=== PATIENT | male | born 1950 | race Hispanic/Latino ===

== ENCOUNTER 2018-08-25 15:53 | Inpatient (IN) | payer MEDICARE ==
[2018-08-25] MEDS ORDERED: CLEOCIN 300 MG/50 mL 300 MG/50 ML BAG IV ONE (16:28)
--- NOTE | 2018-08-25 16:30 | Emergency Department Report ---
ED General Adult HPI - General Chief complaint: Wound/Laceration Stated complaint: Foot infection Time Seen by Provider: 08/25/18 16:15 Source: patient, EMS (ems notes not available at time of chart dictation), RN notes reviewed Mode of arrival: Stretcher Limitations: Physical Limitation - History of Present Illness Initial comments: Primary care DrLeandro: Aggie Belle Cardiology: Dr LEEROY Shi Nephrology: Dr Dutton Past medical history: Obesity, diabetes, hypertension, atrial fibrillation, reportedly on Coumadin C daily, reportedly stage III This is a pleasant 67-year-old gentleman who is not known to this provider previously. The patient presents to the ER with a complaint of global weakness, recurrent falls, malaise, fatigue. He does not believe that he hit his head. He denies focal extremity weakness or numbness. He reports multiple falls on his lower extremities in the past few days. He reports decreased urination, but no bladder or bowel retention or incontinence. There is no headache, neck pain, chest pain, abdominal pain, back pain. There is no saddle anesthesia. He is not sure if he is having black stools. He has a large open wound on the dorsal aspect of his left foot, present for 2 days. He reports that he is up-to-date with tetanus vaccinations. His symptoms are constant, did not radiate anywhere, and worse with attempted physical exertion, decreased with rest. -: Gradual Location: left, lower extremity Consistency: constant Improves with: none Worsens with: none Associated Symptoms: loss of appetite, malaise, rash, weakness. denies: confusion, chest pain, cough, diaphoresis, fever/chills, headaches, nausea/vomiting, seizure, shortness of breath, syncope - Related Data Home Medications Medication Instructions Recorded Confirmed Last Taken Digoxin [Lanoxin] 0.125 mg PO DAILY 08/25/18 08/25/18 08/25/18 Finasteride [Proscar] 5 mg PO QDAY 08/25/18 08/25/18 08/25/18 Furosemide [Lasix TAB] 40 mg PO BID 08/25/18 08/25/18 08/25/18 Insulin Regular,Human U-500(Nf 90 - 110 units SUB-Q TID 08/25/18 08/25/18 08/25/18 [HumuLIN R] Metoprolol [Lopressor TAB] 75 mg PO BID 08/25/18 08/25/18 08/25/18 Pravastatin [Pravachol] 80 mg PO QHS 08/25/18 08/25/18 08/24/18 Tamsulosin HCl [Flomax] 0.8 mg PO HS 08/25/18 08/25/18 08/24/18 Warfarin [Coumadin] 3.75 mg PO QDAY 08/25/18 08/25/18 08/24/18 cephALEXin [Keflex] 500 mg PO Q12HR 08/25/18 08/25/18 08/25/18 metOLazone [Metolazone] 2.5 mg PO QDAY 08/25/18 08/25/18 08/25/18 Allergies Allergy/AdvReac Type Severity Reaction Status Date / Time No Known Allergies Allergy Unverified 08/25/18 16:05 ED Review of Systems ROS: Stated complaint: Foot infection Other details as noted in HPI Constitutional: malaise, weakness. denies: fever Eyes: denies: eye discharge ENT: denies: epistaxis Respiratory: denies: cough Cardiovascular: edema Gastrointestinal: other (questionable black tarry stool) Genitourinary: other (decreased urinary output) Musculoskeletal: arthralgia, other (skin lesions, rash) Skin: lesions Neurological: weakness Psychiatric: anxiety ED Past Medical Hx - Past Medical History Previous Medical History?: Yes Hx Hypertension: Yes Hx Diabetes: Yes Hx Renal Disease: Yes (ESRD Stage 3) Additional medical history: A-Fib. bilat. wounds on feet - Surgical History Past Surgical History?: Yes Additional Surgical History: nephrectomy secondary to excessive kidney stones - Medications Home Medications: Home Medications Medication Instructions Recorded Confirmed Last Taken Type Digoxin [Lanoxin] 0.125 mg PO DAILY 08/25/18 08/25/18 08/25/18 History Finasteride [Proscar] 5 mg PO QDAY 08/25/18 08/25/18 08/25/18 History Furosemide [Lasix TAB] 40 mg PO BID 08/25/18 08/25/18 08/25/18 History Insulin Regular,Human U-500(Nf 90 - 110 units SUB-Q TID 08/25/18 08/25/18 08/25/18 History [HumuLIN R] Metoprolol [Lopressor TAB] 75 mg PO BID 01/12/0808/25/18 08/25/18 History Pravastatin [Pravachol] 80 mg PO QHS 08/25/18 08/25/18 08/24/18 History Tamsulosin HCl [Flomax] 0.8 mg PO HS 08/25/18 08/25/18 08/24/18 History Warfarin [Coumadin] 3.75 mg PO QDAY 08/25/18 08/25/18 08/24/18 History cephALEXin [Keflex] 500 mg PO Q12HR 08/25/18 08/25/18 08/25/18 History metOLazone [Metolazone] 2.5 mg PO QDAY 08/25/18 08/25/18 08/25/18 History ED Physical Exam - General Limitations: Physical Limitation General appearance: alert, in no apparent distress, obese - Head Head exam: Present: atraumatic, normocephalic - Eye Eye exam: Present: normal appearance, EOMI. Absent: nystagmus - ENT ENT exam: Present: normal exam, normal orophraynx, mucous membranes moist, normal external ear exam - Neck Neck exam: Present: normal inspection, full ROM. Absent: tenderness, meningismus - Respiratory Respiratory exam: Present: decreased breath sounds. Absent: respiratory distress - Cardiovascular Cardiovascular Exam: Present: regular rate, irregular rhythm, normal heart sounds. Absent: bradycardia, tachycardia, systolic murmur, diastolic murmur, rubs, gallop - GI/Abdominal GI/Abdominal exam: Present: soft. Absent: distended, tenderness, guarding, rebound, rigid, pulsatile mass - Rectal Rectal exam: Present: normal inspection, normal rectal tone, heme (-) stool (round stool, trace guaiac positive, good rectal tone), other (chaperoned by nurse Galeas) - Extremities Exam Extremities exam: Present: full ROM, pedal edema (3+ pitting edema in the bilat eral lower extremities), other (2+ pulses noted in the bilateral upper, lower extremities. Compartments soft. No long bony tenderness. The pelvis is stable.). Absent: normal inspection (numerous abrasions and ecchymosis in various stages of healing in the lower extremities. On the dorsal lateral aspect of the left foot, blisters noted, with redness and pus. It is somewhat tender.), calf tenderness - Back Exam Back exam: Present: normal inspection, full ROM. Absent: paraspinal tenderness, vertebral tenderness - Neurological Exam Neurological exam: Present: alert, oriented X3, CN II-XII intact, other (Extraocular movements intact. Tongue midline. No facial droop. Facial sensation intact to light touch in the V1, V2, V3 distribution bilaterally. 5 and 5 strength in 4 extremities.. Sensation is intact to light touch in 4 extremities.). Absent: motor sensory deficit - Psychiatric Psychiatric exam: Present: anxious - Skin Skin exam: Present: warm, dry, intact, normal color. Absent: rash ED Course Vital Signs 08/25/18 08/25/18 08/25/18 15:58 16:00 16:02 Temperature 99.0 F Pulse Rate 88 91 H Respiratory 14 16 Rate Blood Pressure 129/55 O2 Sat by Pulse 90 91 94 Oximetry 08/25/18 08/25/18 08/25/18 16:15 16:30 16:45 Temperature Pulse Rate 83 85 88 Respiratory 24 12 16 Rate Blood Pressure 113/41 131/60 140/74 O2 Sat by Pulse 95 97 96 Oximetry 08/25/18 08/25/18 08/25/18 16:52 17:00 18:02 Temperature Pulse Rate 92 H Respiratory 19 Rate Blood Pressure 121/62 121/62 O2 Sat by Pulse 96 92 92 Oximetry 08/25/18 18:16 Temperature Pulse Rate 92 H Respiratory 16 Rate Blood Pressure 121/62 O2 Sat by Pulse 95 Oximetry - Reevaluation(s) Reevaluation #1: 08/25/18 16:39 Differential diagnosis, including not limited to: Physical deconditioning, worsening renal insufficiency, multiple abrasions, infected wounds, fracture, intracranial lesion/hemorrhage Assessment and plan: 67-year-old gentleman, with no focal motor deficits, moving 4 extremities spontaneously, with good rectal tone, no saddle anesthesia, sensation intact to light touch, with a complaint of multiple falls, global debility, and generalized weakness as well as edema. Suspect physical deconditioning, worsening renal insufficiency, and super infected wound. Clinically sober at this time, GCS of 15, NIH score of 0, no midline back pain or tenderness, therefore doubt epidural hematoma, as well as spinal injury. He reports he is up-to-date with tetanus vaccinations. We will start with clindamycin, obtain plain films of the lower extremities, noncontrast CT scan of the brain, and screening laboratory studies. Once initial data points have res ulted, he will require admission for medical optimization. We will contact necessary consultants as dictated by his initial workup. Reevaluation #2: 08/25/18 18:37 X-ray of the pelvis, bilateral lower extremities demonstrates no obvious fracture or dislocation. Incidental postsurgical findings which appear to be chronic noted in the bilateral proximal femurs, as well as an incidental presumed penile prosthesis. Discussed with the patient's private portfolio lead, Dr. Dutton, who recommended admission for diuresis. We appreciate the patient has a white count of 16 with a left shift as well as a heart rate of 90/greater, but he appears to be fluid overloaded, and therefore it is our combined opinion that the patient will not benefit from a fluid bolus. Nephrology, Dr. Dutton, agrees to follow in consultation. The hospital physician, Dr. Alejandra Guidry, has graciously accepted the patient for deconditioning, fluid overload, and infected wound. ED Medical Decision Making - Lab Data Result diagrams: 08/25/18 16:49 08/25/18 16:49 Vital Signs 08/25/18 08/25/18 08/25/18 15:58 16:00 16:02 Temperature 99.0 F Pulse Rate 88 91 H Respiratory 14 16 Rate Blood Pressure 129/55 O2 Sat by Pulse 90 91 94 Oximetry 08/25/18 08/25/18 16:15 16:30 Temperature Pulse Rate 83 85 Respiratory 24 12 Rate Blood Pressure 113/41 131/60 O2 Sat by Pulse 95 97 Oximetry Labs 08/25/18 08/25/18 16:13 16:20 POC Glucose 86 96 - EKG Data -: EKG Interpreted by Vt - EKG Data When compared to previous EKG there are: previous EKG unavailable 08/25/18 16:41 Atrial fibrillation, normal axis, rate of 84 bpm, low voltage, motion artifact, QTC within normal limits, abnormal EKG no prior for comparison, there is no indication of ST elevation myocardial infarction. - Radiology Data Radiology results: pending, report reviewed, image reviewed Noncontrast CT scan of the brain is negative for acute disease, acute findings. Chronic findings noted. Critical care attestation.: If time is entered above; I have spent that time in minutes in the direct care of this critically ill patient, excluding procedure time. ED Disposition Clinical Impression: Debility, Infected wound, Multiple falls, Fluid overload Disposition: DC-09 OP ADMIT IP TO THIS HOSP Is pt being admited?: Yes Condition: Fair Referrals: IRMA BELLE MD [Primary Care Provider] - 3-5 Days
[2018-08-25] MEDS ORDERED: TYLENOL PO ONE (17:21)
[2018-08-25 17:22] LABS: Basophils # (Auto) 0.1 K/mm3 (0.0-0.1); Basophils % (Auto) 0.8 % (0.0-1.8); Eosinophils # (Auto) 0.2 K/mm3 (0.0-0.4); Eosinophils % (Auto) 1.4 % (0.0-4.3); Hemoglobin 11.2 gm/dl (11.8-15.2); Lymphocytes % (Auto) 6.3 % (13.4-35.0); Mean Corpuscular HGB Conc 31 % (32-34); Mean Corpuscular Volume 82 fl (84-94); Monocytes # (Auto) 1.1 K/mm3 (0.0-0.8); Monocytes % (Auto) 6.5 % (0.0-7.3); Platelet Count 430 K/mm3 (140-440); Red Blood Count 4.39 M/mm3 (3.65-5.03)
[2018-08-25 17:26] LABS: Red Cell Distribution Width 21.4 % (13.2-15.2)
[2018-08-25 17:43] LABS: INR 2.47 (0.87-1.13)
[2018-08-25 17:49] LABS: Partial Thromboplastin Time 43.1 Sec. (24.2-36.6)
[2018-08-25] MEDS ORDERED: LASIX IV ONE (18:16)
[2018-08-25 18:29] LABS: Chol/HDL Ratio 3.38 %
--- NOTE | 2018-08-25 18:37 | Cat Scan Report ---
FINAL REPORT EXAM: CT HEAD/BRAIN WO CON HISTORY: multiple falls, on Coumadin TECHNIQUE: 2.5 millimeter axial images from the skullbase to the vertex. Comparison: None FINDINGS: There is evidence of encephalomalacia in the right frontal lobe white matter and body of the caudate suggestive of chronic infarct. There is no evidence of an acute intracranial process, intracranial hemorrhage or mass effect. Ventricular size is concordant with the degree of atrophy/volume loss. There is atherosclerotic vascular calcification of the internal carotid arteries and left vertebral a rtery at the skullbase. The visualized portions of the orbits, paranasal and mastoid sinuses are unremarkable. The bony structures are unremarkable. IMPRESSION: 1. No evidence of an acute intracranial process, intracranial hemorrhage or mass effect. 2. Encephalomalacia, possible chronic infarct, right caudate and frontal lobe periventricular white m atter.
--- NOTE | 2018-08-25 19:12 | XRay Report ---
FINAL REPORT EXAM: XR FEMUR BILAT 2+V HISTORY: multiple falls, history of leg pain, leg swelling TECHNIQUE: Bilateral femurs 9 views Comparison: Pelvis same day FINDINGS: Patient is unable to assist with positioning. Larger patient body habitus. There are clips in the bilateral groins. No fracture or dislocation of the of either femur. Penile implant. IMPRESSION: Nonstandard positioning performed portably with limited patient assistance. No fracture or dislocation of either femur. No focal bony lesion. Penile implant. Bilateral groin clips. The scrotum appears to be enlarged although it may be due to overlap of soft tissues from the right t high on the left femur lateral projection. Correlate with physical exam.
[2018-08-25] MEDS ORDERED: LOPRESSOR IV ONE ×2 (20:36→20:42)
[2018-08-25] MEDS ORDERED: NACL 0.9% 250ML 250 ML IV ONE (20:37)
--- NOTE | 2018-08-25 21:17 | XRay Report ---
FINAL REPORT EXAM: XR CHEST 1V AP HISTORY: weakness chf TECHNIQUE: Supine frontal chest x-ray Comparison: None FINDINGS: Global cardiomegaly. Coarsening of the bronchovascular interstitium with pulmonary vascular congestion. No definite effusi on. IMPRESSION: Cardiomegaly with pulmonary vascular congestion suggestive of mild congestive failure versus less lik rose infectious interstitial infiltrates. No definite effusion.
--- NOTE | 2018-08-25 21:19 | XRay Report ---
FINAL REPORT EXAM: XR PELVIS 1-2V HISTORY: history of multiple falls, weakness TECHNIQUE: AP pelvis Comparison: None FINDINGS: Limited positioning. Normal bony mineralization. Degenerative arthritis of both hips and the lower lumbar spine. SI joints are. There with scarring of the right ASIS suggestive of DISH. Fecal ball in the rectum. Penile implant. Bilateral groin clips. No disruption of the bony pelvic ring. IMPRESSION: No fracture identified. Degenerative changes only.
--- NOTE | 2018-08-25 21:27 | XRay Report ---
FINAL REPORT EXAM: XR FOOT 2V LT HISTORY: weakness, left foot pain TECHNIQUE: Three nonstandard images of the left foot were performed Comparison: None FINDINGS: There is global osteopenia. Advanced degenerative arthritis of the 1st metatarsal-phalangeal joint. Possible cortical irregularity of the 2nd digit middle phalanx medially. Arterial calcification. Oblique fracture through the great toe tuft extends into the IP joint. This finding is not well seen on the lateral projection. Mature plantar calcaneal spur. Dorsal soft tissue swelling midfoot. IMPRESSION: Nonstandard positioning. There appears to be an oblique fracture through the left great toe tuft extending into the IP joint s pace. Recommend standard nonportable images when able versus cross-sectional imaging. Possible nondisplaced fracture of the left 2nd toe middle phalanx. Globally osteopenic bones in the foot with poor visualization of the tarsals. Dorsal soft tissue swelling over the midfoot.
--- NOTE | 2018-08-25 21:28 | XRay Report ---
FINAL REPORT EXAM: XR TIBIA FIBULA 2V LT HISTORY: history of falls, bilateral lower extremity pain, TECHNIQUE: Four views left tibia and fibula were performed Comparison: None FINDINGS: Normal bony mineralization. No fracture or dislocation. Degenerative arthritis of the ankle joint incompletely assessed. Tibiotalar spurring. Posterior soft tissue calcification and arterial calcification. IMPRESSION: Degenerative arthritis left ankle. No definite fracture or dislocation left tibia or fibula.
[2018-08-26] MEDS ORDERED: VANCOMYCIN PHARMACY TO DOSE IV SCH (02:00)
[2018-08-26] MEDS ORDERED: VANCOMYCIN 2,000 MG in NACL 0.9% 500 ML 500 ML IV ONE (04:00)
[2018-08-26] MEDS: UNASYN/NS 1.5 GM/50 ML 1.5 GM/50 ML BAG IV SCH ×4 (04:00→22:03)
--- NOTE | 2018-08-26 06:21 | Event Note ---
Date: 08/25/18 See dictated H/p in reports Bilateral Cellulitis NATALIA sec to excessive diuretics
--- NOTE | 2018-08-26 07:06 | History and Physical Report ---
CHIEF COMPLAINT: Lower extremity redness and multiple falls. HISTORY OF PRESENT ILLNESS: A 67-year-old male with multiple medical problems including hypertension, CHF, chronic kidney disease and atrial fibrillation, comes in for bilateral wounds on both feet and redness of both feet and frequent falls. Multiple falls in recent days. Also, patient reports decreased urination. No shortness of breath. The patient also has a large open wound on the left foot dorsal aspect for 2 days. No fever or chills. PAST MEDICAL HISTORY: As mentioned, insulin-dependent diabetes, chronic kidney disease, BPH, CHF, atrial fibrillation. CURRENT MEDICATIONS: On chart, which includes Coumadin and Flomax and high dose insulin. Also, finasteride 5 mg once a day. PAST SURGICAL HISTORY: Nephrectomy secondary to excessive kidney stones. FAMILY HISTORY: Hypertension. SOCIAL HISTORY: Does not smoke. No alcohol, no recreational drugs. REVIEW OF SYSTEMS: Significant for bilateral leg wounds and redness and also the left foot ulcer. Frequent falls. Shortness of breath. Obesity. Otherwise, review of systems negative. No chest pain. PHYSICAL EXAMINATION: GENERAL: Elderly male, cooperative during examination. VITAL SIGNS: Temperature is 97.5. Pulse is 100. Blood pressure is 92/34. Respiratory rate is 18. HEENT: Unremarkable. Pupils equal and reactive. NECK: Supple, no lymphadenopathy, no thyromegaly. LUNGS: Clear to auscultation and percussion. Good air entry. CARDIOVASCULAR SYSTEM: S1, S2 heard. No gallop, no murmur, no rub. Apical impulse in left fifth intercostal space in midclavicular line. ABDOMEN: Soft and benign. No hepatosplenomegaly, no guarding, no rigidity. Hernial orifices are normal. CENTRAL NERVOUS SYSTEM: Alert and oriented x 4, nonfocal exam. EXTREMITIES: Both lower extremities are red, erythematous below knees and also there is open wound on the left foot dorsal aspect. Pulses are faintly felt. LABORATORY DATA: Significant for white count of 16,600, H and H is 11.2 and 36, platelet count is 430,000. Sodium is 139. Potassium is 4.0. BUN and creatinine 35 and 2.2. Glucose is ____ 144. A1c is 8.7. Troponin is 0.080. ASSESSMENT AND PLAN: 1. Bilateral lower extremity cellulitis. The patient initiated on Unasyn and vancomycin. Wound care consult requested. 2. Left foot ulcer. Wound care initiated. If necessary, surgical consult. 3. Acute kidney injury. The patient's BUN and creatinine is 35 and 2.2. The patient is on excessive diuretics. He is on Lasix 40 q. 12, which is decreased to 40 once a day. The patient is also on metolazone, which is continued. Will trend BUN and creatinine. Also, nephrology consult requested. He follows with [facility]. 4. Insulin-dependent diabetes. The patient is at very high dose, which was not initiated. The patient initiated on high dose sliding scale protocol. To add is insulin, which is 100 units 3 times a day, to be added after verifying with the patient. 5. Hypertension. Continue metoprolol. 6. Benign prostatic hyperplasia. Continue tamsulosin, and Proscar. 7. Atrial fibrillation. Continue Coumadin. 8. Deep venous thrombosis prophylaxis, the patient is already on Coumadin. Protime is pending. JOB# [id number] DEBORAH/TEENA
[2018-08-26] MEDS: URECHOLINE PO SCH ×2 (09:32→22:07)
[2018-08-26] MEDS: HumaLOG SUB-Q SCH ×3 (09:33→16:36)
[2018-08-26] MEDS: ZAROXOLYN PO SCH (09:33)
[2018-08-26] MEDS: LASIX PO SCH (09:34)
[2018-08-26] MEDS: LANOXIN PO SCH (09:34)
[2018-08-26] MEDS: PROSCAR PO SCH (09:34)
[2018-08-26] MEDS: LOPRESSOR PO SCH (09:35)
[2018-08-26] MEDS ORDERED: URECHOLINE PO SCH (10:00)
[2018-08-26] MEDS ORDERED: COUMADIN PO SCH ×2 (10:00→17:00)
[2018-08-26] MEDS ORDERED: BETHANECHOL 25 MG PO SCH (10:00)
--- NOTE | 2018-08-26 12:06 | Consultation ---
History of Present Illness - Reason for Consult Consult date: 08/26/18 chronic renal failure Requesting physician: JAEL MERCEDES - History of Present Illness This is a pleasant 67-year-old gentleman presented to the emergency room with a complaint of global weakness, recurrent falls, malaise, fatigue. He does not believe that he hit his head. He denies focal extremity weakness or numbness. He reports multiple falls on his lower extremities in the past few days. He reports decreased urination, but no bladder or bowel retention or incontinence. There is no headache, neck pain, chest pain, abdominal pain, back pain. There is no saddle anesthesia. He is not sure if he is having black stools. He has a large open wound on the dorsal aspect of his left foot, present for 2 days. He reports that he is up-to-date with tetanus vaccinations. His symptoms are constant, did not radiate anywhere, and worse with attempted physical exertion, decreased with rest. He is well-known to me from office visits. I saw him in the office earlier this week. He was having increasing leg swelling and also had a sore in his left foot. I doubled his diuretics and also added metolazone. I gave him a prescription for oral Keflex and referred him to wound care. However his condition continued to deteriorate and he was referred to the emergency room for evaluation and admission Past History Past Medical History: diabetes, hypertension, renal failure, other (renal cell cancer) Past Surgical History: Other (history of unilateral nephrectomy) Social history: no significant social history Family history: no significant family history Medications and Allergies Allergies Allergy/AdvReac Type Severity Reaction Status Date / Time No Known Allergies Allergy Unverified 08/25/18 16:05 Home Medications Medication Instructions Recorded Confirmed Last Taken Type Bethanechol 25 PO BID 08/25/18 08/24/18 12:00 History Digoxin [Lanoxin] 0.125 mg PO DAILY 08/25/18 08/25/18 08/25/18 History Finasteride [Proscar] 5 mg PO QDAY 08/25/18 08/25/18 08/25/18 History Furosemide [Lasix TAB] 40 mg PO BID 08/25/18 08/25/18 08/25/18 History Insulin Regular,Human U-500(Nf 90 - 110 units SUB-Q TID 08/25/18 08/25/1819 History [HumuLIN R] Metoprolol [Lopressor TAB] 75 mg PO BID 08/25/18 08/25/18 08/25/18 History Pravastatin [Pravachol] 80 mg PO QHS 08/25/18 08/25/18 08/24/18 History Tamsulosin HCl [Flomax] 0.8 mg PO HS 08/25/18 08/25/18 08/24/18 History Warfarin [Coumadin] 3.75 mg PO QDAY 08/25/18 08/25/18 08/24/18 History cephALEXin [Keflex] 500 mg PO Q12HR 08/25/18 08/25/18 08/25/18 History metOLazone [Metolazone] 2.5 mg PO QDAY 08/25/18 08/25/18 08/25/18 History Active Meds: Active Medications Bethanechol Chloride (Urecholine) 25 mg PO BID [facility] Last Admin: 08/26/18 09:32 Dose: 25 mg Documented by: Digoxin (Lanoxin) 0.125 mg PO DAILY [facility] Last Admin: 08/26/18 09:34 Dose: 0.125 mg Documented by: Finasteride (Proscar) 5 mg PO QDAY [facility] Last Admin: 08/26/18 09:34 Dose: 5 mg Documented by: Furosemide (Lasix) 40 mg PO QDAY [facility] Last Admin: 08/26/18 09:34 Dose: 40 mg Documented by: Ampicillin Sodium/Sulbactam Sodium (Unasyn/Ns 1.5 Gm/50 Ml) 1.5 gm in 50 mls @ 100 mls/hr IV Q6H [facility]; Protocol Last Admin: 08/26/18 09:34 Dose: 100 mls/hr Documented by: Insulin Human Lispro (Humalog) 0 unit SUB-Q ACHS [facility]; Protocol Last Admin: 08/26/18 09:33 Dose: 6 unit Documented by: Metolazone (Zaroxolyn) 2.5 mg PO QDAY [facility] Last Admin: 08/26/18 09:33 Dose: 2.5 mg Documented by: Metoprolol Tartrate (Lopressor) 75 mg PO BID [facility] Last Admin: 08/26/18 09:35 Dose: Not Given Documented by: Pravastatin Sodium (Pravachol) 80 mg PO QHS [facility] Tamsulosin HCl (Flomax) 0.8 mg PO HS [facility] Warfarin Sodium (Coumadin) 3.75 mg PO DAILY@1700 [facility] Review of Systems All systems: negative (negative except as noted above) Exam - Vital Signs Vital signs: Vital Signs Pulse Ox 90 08/25/18 15:58 - General Appearance General appearance: well-developed, well-nourished, appears stated age, obese EENT: PERRL, mucous membranes moist Neck: Present: neck supple, trachea midline. Absent: JVD/HJR, Masses Respiratory: Clear to Ascultation Heart: regular, normal heart rate, S1S2, no murmurs Gastrointestinal: Present: normal, normoactive bowel sounds Integumentary: other (2+ edema. Ulcerated area noted in dorsum of his left foot) Results - Lab Results 08/25/18 16:49 08/25/18 16:49 Most recent lab results Calcium 10.0 mg/dL (8.4-10.2) 08/25/18 16:49 Magnesium 2.00 mg/dL (1.7-2.3) 08/25/18 16:49 Assessment and Plan Impression * Chronic kidney disease * Sepsis * Left foot ulcer * Fluid overload * History of renal cell CA. Status post unilateral nephrectomy * Hypertension * Diabetes Recommendations * Patient renal function appears to be at baseline * Is clinically volume overloaded. Continue loop diuretics * IV antibiotic and culture as per primary team * Avoid nephrotoxins * Monitor fluid status and electrolytes closely * Thank you very much for the consultation. Shall follow along with you
--- NOTE | 2018-08-26 13:13 | Progress Note ---
Assessment and Plan Assessment and plan: Sepsis secondary to cellulitis of the lower extremities - sepsis evidenced with tachycardia and leukocytosis - Patient on IV Unasyn and vancomycin - Wound care consult A. titus - On Coumadin - And metoprolol for rate control History of CVA - Mild residual right-sided weakness - Continue supportive care Congestive heart failure - Chest x-ray showed pulmonary venous congestion - Continue furosemide and metolazone - And is followed by Dr. Shi in the clinic and put a consult for [facility] Acute renal failure - Nephrology is following Disposition - Continue inpatient care History Interval history: Patient was seen and evaluated this morning, discussed with his . patient was sleepy but when awake he is alert and oriented. Hospitalist Physical - Physical exam Narrative exam: Not in cardiopulmonary distress. The patient is obese. Vital signs as documented. Head exam is unremarkable. No scleral icterus . Neck is without jugular venous distension, thyromegaly, or carotid bruits. Lungs are clear to auscultation. Cardiac exam reveals regular rate and Rhythm. Abdominal exam reveals normal bowel sounds. Extremities are nonedematous and both femoral and pedal pulses are normal. 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 Sleepy. - Constitutional Vitals: Temp Pulse Resp BP Pulse Ox 99.1 F 100 H 20 109/50 94 08/26/18 07:53 08/26/18 09:34 08/26/18 07:53 08/26/18 09:35 08/26/18 07:54 Results - Labs CBC & Chem 7: 08/25/18 16:49 08/25/18 16:49 Labs: Laboratory Last Values WBC 16.6 K/mm3 (4.5-11.0) H 08/25/18 16:49 RBC 4.39 M/mm3 (3.65-5.03) 08/25/18 16:49 Hgb 11.2 gm/dl (11.8-15.2) L 08/25/18 16:49 Hct 36.0 % (35.5-45.6) 08/25/18 16:49 MCV 82 fl (84-94) L 08/25/18 16:49 MCH 26 pg (28-32) L 08/25/18 16:49 MCHC 31 % (32-34) L 08/25/18 16:49 RDW 21.4 % (13.2-15.2) H 08/25/18 16:49 Plt Count 430 K/mm3 (140-440) 08/25/18 16:49 Lymph % (Auto) 6.3 % (13.4-35.0) L 08/25/18 16:49 [place] % (Auto) 6.5 % (0.0-7.3) 08/25/18 16:49 Eos % (Auto) 1.4 % (0.0-4.3) 08/25/18 16:49 Baso % (Auto) 0.8 % (0.0-1.8) 08/25/18 16:49 Lymph # 1.0 K/mm3 (1.2-5.4) L 08/25/18 16:49 [place] # 1.1 K/mm3 (0.0-0.8) H 08/25/18 16:49 Eos # 0.2 K/mm3 (0.0-0.4) 08/25/18 16:49 Baso # 0.1 K/mm3 (0.0-0.1) 08/25/18 16:49 Seg Neutrophils % 85.0 % (40.0-70.0) H 08/25/18 16:49 Seg Neutrophils # 14.1 K/mm3 (1.8-7.7) H 08/25/18 16:49 PT 27.1 Sec. (12.2-14.9) H 08/25/18 16:49 INR 2.47 (0.87-1.13) H 08/25/18 16:49 APTT 43.1 Sec. (24.2-36.6) H 08/25/18 16:49 Sodium 139 mmol/L (137-145) 08/25/18 16:49 Potassium 4.0 mmol/L (3.6-5.0) 08/25/18 16:49 Chloride 93.3 mmol/L (98-107) L 08/25/18 16:49 Carbon Dioxide 30 mmol/L (22-30) 08/25/18 16:49 Anion Gap 20 mmol/L 08/25/18 16:49 BUN 35 mg/dL (9-20) H 08/25/18 16:49 Creatinine 2.2 mg/dL (0.8-1.5) H 08/25/18 16:49 Estimated GFR 30 ml/min 08/25/18 16:49 BUN/Creatinine Ratio 16 % 08/25/18 16:49 Glucose 86 mg/dL (75-100) 08/25/18 16:49 POC Glucose 267 (70-105) H 08/26/18 11:42 Hemoglobin A1c 8.7 % (4-6) H 08/26/18 04:58 Calcium 10.0 mg/dL (8.4-10.2) 08/25/18 16:49 Magnesium 2.00 mg/dL (1.7-2.3) 08/25/18 16:49 Total Creatine Kinase 116 units/L (55-170) 08/25/18 16:49 Troponin T 0.080 ng/mL (0.00-0.029) H 08/25/18 16:49 Triglycerides 121 mg/dL (2-149) 08/25/18 16:49 Cholesterol 105 mg/dL (50-199) 08/25/18 16:49 LDL Cholesterol Direct 58 mg/dL (50-130) 08/25/18 16:49 HDL Cholesterol 31 mg/dL (40-59) L 08/25/18 16:49 Cholesterol/HDL Ratio 3.38 % 08/25/18 16:49
[2018-08-26 13:17] LABS: Bilirubin,Urine NEG (Negative); Blood,Urine MOD (Negative); Color,Urine Yellow (Yellow); Mucus,Urine FEW /HPF; Urobilinogen,Urine < 2.0 mg/dL (<2.0)
[2018-08-26] MEDS: PRAVACHOL PO SCH (22:06)
[2018-08-26] MEDS: FLOMAX PO SCH (22:17)
[2018-08-27] MEDS: HumaLOG SUB-Q SCH ×5 (00:08→22:44)
[2018-08-27] MEDS: LOPRESSOR PO SCH ×3 (00:10→21:35)
[2018-08-27] MEDS ORDERED: VANCOMYCIN 1,750 MG in NACL 0.9% 500 ML 500 ML IV SCH (04:00)
[2018-08-27 04:17] LABS: Basophils # (Auto) 0.1 K/mm3 (0.0-0.1); Basophils % (Auto) 0.4 % (0.0-1.8); Eosinophils # (Auto) 0.2 K/mm3 (0.0-0.4); Eosinophils % (Auto) 0.9 % (0.0-4.3); Hematocrit 31.1 % (35.5-45.6); Hemoglobin 9.6 gm/dl (11.8-15.2); Lymphocytes # (Auto) 0.9 K/mm3 (1.2-5.4); Lymphocytes % (Auto) 5.5 % (13.4-35.0); Mean Corpuscular HGB Conc 31 % (32-34); Mean Corpuscular Volume 81 fl (84-94); Monocytes # (Auto) 1.8 K/mm3 (0.0-0.8); Monocytes % (Auto) 11.5 % (0.0-7.3); Platelet Count 368 K/mm3 (140-440); Red Blood Count 3.85 M/mm3 (3.65-5.03)
[2018-08-27 04:24] LABS: Red Cell Distribution Width 21.2 % (13.2-15.2)
[2018-08-27 04:27] LABS: INR 3.59 (0.87-1.13)
[2018-08-27 04:29] LABS: Calcium 8.9 mg/dL (8.4-10.2)
[2018-08-27] MEDS: UNASYN/NS 1.5 GM/50 ML 1.5 GM/50 ML BAG IV SCH ×2 (04:59→11:10)
--- NOTE | 2018-08-27 09:55 | Consultation ---
History of Present Illness - Reason for Consult Consult date: 08/27/18 Sepsis, Cellulitis Requesting physician: NEREIDA SANTIAGO - History of Present Illness This patient is a 67 year old male with a past medical history of obesity, diabetes, hypertension and atrial fibrillation, who presented in the ED on 08/25/18 with complaints of global weakness, recurrent falls, malaise and fatigue. He reports decreased urination, but no bladder or bowel retention or incon tinence. Upon further exam he was found to have a large open wound on the dorasal aspect of his left foot for 2 days. On admission WBC 16.6, Creatinine 2.2, Temperature 97.5, HR 147, BP 121/62, U/A show no evidence of UTI, Chest xray shows mild congestive failure verses less likely infectious interstitial infiltrates. No definite effusion. Foot xray shows possible nondisplaced fracture of the left 2nd toe middle phalanx. Tibia/Fibula xray show degenerative arthritis left ankle. No definite fracture or dislocation left tibia or fibula. Patient asleep , difficult to arouse. at bedside. Stated that patient has had frequent falls since his stoke in 2014. He currently ambulates with a walker. She reports on 08/18/18, his has bilateral swelling in both feet, however his left foot dorsal foot blistered with purulent drainage. His attempted to care for the foot at home. He came to the ER on 08/25/18 for generalized weakness and multiple recurrent falls. Review of Systems: General: no fever,chills, nightsweats, unintentional weight change, or change in appetite, Head: no headaches or injury Eyes: no changes in vision, eye pain, double vision Ears: no ear pain, ear discharge, ringing or hearing loss Nose: no nose bleeding, stuffiness Mouth & throat: no bleeding gums, no horseness, no dental problems, or swollen glands Neck: no pain, node enlargement/lumps, tyroid enlargement or tenderness Respiratory: No cough, sputum, hemoptysis or shortness of breath Cardiovascular: no chest pain, leg edema, cyanosis, REYES, orthopnea Musculoskeletal: decreased joint motion left leg, edematous right foot ,muscles aches bilateral extremities Skin: left dorsal foot wound, warm to touch, third toe superficial wound , left knee sore Gastrointestinal: no nausea, vomiting, hematemesis, diarrhea, +constipation Genitourinary/Reproductive: decreased urination, no dysuria, hematuria, i Neurogical: no seizures, no headaches, + weakness, +diabetic neuropathy Psychiatric: stable mood , no excessive anxiety Past History Past Medical History: diabetes, hypertension, renal failure, other (renal cell cancer) Past Surgical History: Other (history of unilateral nephrectomy) Social history: no significant social history Family history: no significant family history Medications and Allergies Allergies Allergy/AdvReac Type Severity Reaction Status Date / Time No Known Allergies Allergy Unverified 08/25/18 16:05 Home Medications Medication Instructions Recorded Confirmed Last Taken Type Bethanechol 25 mg PO BID 08/25/18 08/26/18 08/24/18 12:00 History Digoxin [Lanoxin] 0.125 mg PO DAILY 08/25/18 08/25/18 08/25/18 History Finasteride [Proscar] 5 mg PO QDAY 08/25/18 08/25/18 08/25/18 History Furosemide [Lasix TAB] 40 mg PO BID 08/25/18 08/25/18 08/25/18 History Insulin Regular,Human U-500(Nf 90 - 110 units SUB-Q TID 08/25/18 08/25/18 08/25/18 History [HumuLIN R] Metoprolol [Lopressor TAB] 75 mg PO BID 08/25/18 08/25/18 08/25/18 History Pravastatin [Pravachol] 80 mg PO QHS 08/25/18 08/25/18 08/24/18 History Tamsulosin HCl [Flomax] 0.8 mg PO HS 08/25/18 08/25/18 08/24/18 History Warfarin [Coumadin] 3.75 mg PO QDAY 08/25/18 08/25/18 08/24/18 History cephALEXin [Keflex] 500 mg PO Q12HR 08/25/18 08/25/18 08/25/18 History metOLazone [Metolazone] 2.5 mg PO QDAY 08/25/18 08/25/18 08/25/18 History Active Meds: Active Medications Bethanechol Chloride (Urecholine) 25 mg PO BID [facility] Last Admin: 08/26/18 22:07 Dose: 25 mg Documented by: Digoxin (Lanoxin) 0.125 mg PO DAILY [facility] Last Admin: 08/26/18 09:34 Dose: 0.125 mg Documented by: Finasteride (Proscar) 5 mg PO QDAY [facility] Last Admin: 08/26/18 09:34 Dose: 5 mg Documented by: Furosemide (Lasix) 40 mg PO QDAY [facility] Last Admin: 08/26/18 09:34 Dose: 40 mg Documented by: Ampicillin Sodium/Sulbactam Sodium (Unasyn/Ns 1.5 Gm/50 Ml) 1.5 gm in 50 mls @ 100 mls/hr IV Q6H [facility]; Protocol Last Admin: 08/27/18 04:59 Dose: 100 mls/hr Documented by: Vancomycin HCl 1,500 mg/ (Sodium Chloride) 530 mls @ 333.333 mls/hr IV ONCE ONE Stop: 08/27/18 19:35 Insulin Human Lispro (Humalog) 0 unit SUB-Q ACHS [facility]; Protocol Last Admin: 08/27/18 00:08 Dose: 6 unit Documented by: Metolazone (Zaroxolyn) 2.5 mg PO QDAY [facility] Last Admin: 08/26/18 09:33 Dose: 2.5 mg Documented by: Metoprolol Tartrate (Lopressor) 75 mg PO BID [facility] Last Admin: 08/27/18 00:10 Dose: Not Given Documented by: Pravastatin Sodium (Pravachol) 80 mg PO QHS [facility] Last Admin: 08/26/18 22:06 Dose: 80 mg Documented by: Tamsulosin HCl (Flomax) 0.8 mg PO HS [facility] Last Admin: 08/26/18 22:17 Dose: 0.8 mg Documented by: Physical Examination - Physical Exam Narrative exam: Constitutional: Asleep, difficult to arouse, mild distress Head, Ears, Nose: Normocephalic, atraumatic. External ears, nose normal Eyes: Conjunctivae/corneas clear. No icterus. No ptosis. Neck: Supple, no meningeal signs Oral: dentition food, no thrush . Cardiovascular: S1, S2 normal. Respiratory: Good air entry, clear to auscultation bilaterally GI: Soft, non-tender; bowel sounds normal. No peritoneal signs Musculoskeletal: Right foot edema, bilateral extremity weakness Skin: left foot wound, with purulent drainage, 3rd toe superficial wound Hem/Lymphatic: No palpable cervical or supraclavicular nodes. No lymphangitis Psych: Mood ok. Affect normal Neurological: Asleep, difficult to arouse - Constitutional Vitals: Vital Signs Temp Pulse Resp BP Pulse Ox 98.4 F 92 H 22 145/51 95 08/27/18 02:00 08/27/18 02:00 08/26/18 19:49 08/27/18 01:55 08/27/18 02:00 Temperature -Last 24 Hours Temperature 98.4 F Temperature 101.1 F Temperature 101.1 F Temperature 99.6 F Results - Labs CBC & Chem 7: 08/27/18 04:03 08/27/18 04:03 Labs: Abnormal lab results 08/26/18 08/26/18 08/26/18 Range/Units 11:42 16:20 23:23 WBC (4.5-11.0) K/mm3 Hgb (11.8-15.2) gm/dl Hct (35.5-45.6) % MCV (84-94) fl MCH (28-32) pg MCHC (32-34) % RDW (13.2-15.2) % Lymph % (Auto) (13.4-35.0) % [place] % (Auto) (0.0-7.3) % Lymph # (1.2-5.4) K/mm3 [place] # (0.0-0.8) K/mm3 Seg Neutrophils % (40.0-70.0) % Seg Neutrophils # (1.8-7.7) K/mm3 PT (12.2-14.9) Sec. INR (0.87-1.13) Sodium (137-145) mmol/L Chloride (98-107) mmol/L BUN (9-20) mg/dL Creatinine (0.8-1.5) mg/dL Glucose (75-100) mg/dL POC Glucose 267 H 316 H 258 H (70-105) 08/27/18 08/27/18 08/27/18 Range/Units 04:03 04:03 04:03 WBC 16.1 H (4.5-11.0) K/mm3 Hgb 9.6 L (11.8-15.2) gm/dl Hct 31.1 L (35.5-45.6) % MCV 81 L (84-94) fl MCH 25 L (28-32) pg MCHC 31 L (32-34) % RDW 21.2 H (13.2-15.2) % Lymph % (Auto) 5.5 L (13.4-35.0) % [place] % (Auto) 11.5 H (0.0-7.3) % Lymph # 0.9 L (1.2-5.4) K/mm3 [place] # 1.8 H (0.0-0.8) K/mm3 Seg Neutrophils % 81.7 H (40.0-70.0) % Seg Neutrophils # 13.1 H (1.8-7.7) K/mm3 PT 36.1 H (12.2-14.9) Sec. INR 3.59 H (0.87-1.13) Sodium 133 L (137-145) mmol/L Chloride 90.1 L (98-107) mmol/L BUN 39 H (9-20) mg/dL Creatinine 2.4 H (0.8-1.5) mg/dL Glucose 283 H (75-100) mg/dL POC Glucose (70-105) 08/27/18 Range/Units 08:20 WBC (4.5-11.0) K/mm3 Hgb (11.8-15.2) gm/dl Hct (35.5-45.6) % MCV (84-94) fl MCH (28-32) pg MCHC (32-34) % RDW (13.2-15.2) % Lymph % (Auto) (13.4-35.0) % [place] % (Auto) (0.0-7.3) % Lymph # (1.2-5.4) K/mm3 [place] # (0.0-0.8) K/mm3 Seg Neutrophils % (40.0-70.0) % Seg Neutrophils # (1.8-7.7) K/mm3 PT (12.2-14.9) Sec. INR (0.87-1.13) Sodium (137-145) mmol/L Chloride (98-107) mmol/L BUN (9-20) mg/dL Creatinine (0.8-1.5) mg/dL Glucose (75-100) mg/dL POC Glucose 319 H (70-105) Assessment and Plan Imagin08/25/2018 Chest: mild congestive failure verses less likely infectious in terstitial infiltrates. No definite effusion 08/25/2018 Foot xray: Possible nondisplaced fracture of the left 2nd toe middle phalanx. Globally osteopenic bones in the foot with poor visualization of the tarsals. 08/25/2018: Tibia/Fibula x-ray: Degenerative arthritis left ankle. No definite fracture or dislocation left tibia or fibula Cultures: 08/27/2018 Left Foot: pending A/P: 66-year-old male with a history of obesity, diabetes, hypertension and atrial fibrillation, admitted with: 1. Sepsis: Present on admission, manifested by leukocytosis and tachycardia. Etiology unclear. large open wound on dorsal aspect of left foot.. +/- diabetic foot ulceration, +/-- cellulitis, Chest xray shows no infiltrates, U/A negative for UTI. New onset fevers. Blood cultures not drawn. Currently being treated with unasyn and vancomycin. 2. Left foot Cellulitis and wound infection : On exam, left foot warm, tender to touch with purulent drainage. + Diabetic neuropathy. Wound cultures sent. +2 bilateral pulses 3. Fevers: related to above 4. Type 2 Diabetes uncontrolled: tight glycemic control 5. NATALIA/CKD - Status post unilateral nephrectomy Plan order blood cultures order CRP, ESR Left Foot wound culture discontinue unasyn and vancomycin Start Cefepime 1 gm q 12 Hours Start Linezolid IV 600 BID d/w Dr. Edis Boyd, BUSINESS DIVISION CHAIR [facility] M: [phone] O:[phone]
--- NOTE | 2018-08-27 11:11 | Progress Note ---
Assessment and Plan Impression * Chronic kidney disease * Sepsis * Left foot ulcer * Fluid overload * History of renal cell CA. Status post unilateral nephrectomy * Hypertension * Diabetes Recommendations * Patient renal function appears to be at baseline * Is clinically volume overloaded. Continue loop diuretics * IV antibiotic and culture as per primary team * Avoid nephrotoxins * Monitor fluid status and electrolytes closely * ID consult appreciated * Check an ultrasound of his kidneys as well as PVR Subjective Date of service: 08/27/18 Interval history: patient is not feeling well. Appetite is poor. Denies any shortness of breath Objective - Vital Signs Vital signs: Vital Signs - 12hr 08/27/18 08/27/18 08/27/18 00:10 01:55 02:00 Temperature 98.4 F Pulse Rate 104 H 92 H Blood Pressure 120/49 145/51 O2 Sat by Pulse 95 95 Oximetry - General Appearance General appearance: well-developed, well-nourished, appears stated age EENT: ATNC Neck: no JVD, no thyromegaly, no carotid bruit, supple Respiratory: Present: Clear to Ascultation Cardiology: regular, normal heart rate Gastrointestinal: normal, normoactive bowel sounds Integumentary: other (1+ edema. Ulceration noted in the dorsum of his left foot) - Lab 08/27/18 04:03 08/27/18 04:03 Most recent lab results Calcium 8.9 mg/dL (8.4-10.2) 08/27/18 04:03 Magnesium 2.00 mg/dL (1.7-2.3) 08/25/18 16:49 Medications & Allergies - Medications Allergies/Adverse Reactions: Allergies No Known Allergies Allergy (Unverified 08/25/18 16:05) Home Medications: Home Medications Medication Instructions Recorded Confirmed Last Taken Type Bethanechol 25 mg PO BID 08/25/18 08/26/18 08/24/18 12:00 History Digoxin [Lanoxin] 0.125 mg PO DAILY 08/25/18 08/25/18 08/25/18 History Finasteride [Proscar] 5 mg PO QDAY 08/25/18 08/25/18 08/25/18 History Furosemide [Lasix TAB] 40 mg PO BID 08/25/18 08/25/18 08/25/18 History Insulin Regular,Human U-500(Nf 90 - 110 units SUB-Q TID 08/25/18 08/25/18 08/25/18 History [HumuLIN R] Metoprolol [Lopressor TAB] 75 mg PO BID 08/25/18 08/25/18 08/25/18 History Pravastatin [Pravachol] 80 mg PO QHS 08/25/18 08/25/18 08/24/18 History Tamsulosin HCl [Flomax] 0.8 mg PO HS 08/25/18 08/25/18 08/24/18 History Warfarin [Coumadin] 3.75 mg PO QDAY 08/25/18 08/25/18 08/24/18 History cephALEXin [Keflex] 500 mg PO Q12HR 08/25/18 08/25/18 08/25/18 History metOLazone [Metolazone] 2.5 mg PO QDAY 08/25/18 08/25/18 08/25/18 History Active Medications: Generic Name Dose Route Start Last Admin Trade Name Freq PRN Reason Stop Dose Admin Bethanechol Chloride 25 mg 08/26/18 10:00 08/26/18 22:07 Urecholine PO 25 mg BID JOAN Administration Digoxin 0.125 mg 08/26/18 10:00 08/26/18 09:34 Lanoxin PO 0.125 mg DAILY JOAN Administration Finasteride 5 mg 08/26/18 10:00 08/26/18 09:34 Proscar PO 5 mg QDAY JOAN Administration Furosemide 40 mg 08/26/18 10:00 08/26/18 09:34 Lasix PO 40 mg QDAY JOAN Administration Ampicillin Sodium/Sulbactam Sodium 1.5 gm in 50 mls @ 100 mls/hr 08/26/18 04:00 08/27/18 11:10 Unasyn/Ns 1.5 Gm/50 Ml IV 100 mls/hr Q6H JOAN Administration Protocol Vancomycin HCl 1,500 mg/ 530 mls @ 333.333 mls/hr 08/27/18 18:00 Sodium Chloride IV 08/27/18 19:35 ONCE ONE Insulin Human Lispro 0 unit 08/26/18 07:30 08/27/18 11:09 Humalog SUB-Q 8 unit ACHS JOAN Administration Protocol Metolazone 2.5 mg 08/26/18 10:00 08/26/18 09:33 Zaroxolyn PO 2.5 mg QDAY JOAN Administration Metoprolol Tartrate 75 mg 08/26/18 10:00 08/27/18 00:10 Lopressor PO Not Given BID OJAN Pravastatin Sodium 80 mg 08/26/18 22:00 08/26/18 22:06 Pravachol PO 80 mg QHS JOAN Administration Tamsulosin HCl 0.8 mg 08/26/18 22:00 08/26/18 22:17 Flomax PO 0.8 mg HS JOAN Administration
[2018-08-27] MEDS: LASIX PO SCH (11:12)
[2018-08-27] MEDS: URECHOLINE PO SCH ×2 (11:13→21:35)
[2018-08-27] MEDS: ZAROXOLYN PO SCH (11:13)
[2018-08-27] MEDS: PROSCAR PO SCH (11:13)
[2018-08-27] MEDS: LANOXIN PO SCH (11:23)
--- NOTE | 2018-08-27 14:24 | XRay Report ---
FINAL REPORT EXAM: XR ELBOW 2V RT HISTORY: ritght elbow pain COMPARISON: None. TECHNIQUE: Two views of the right elbow FINDINGS: There are compression plates with screws in the distal humerus. Medial compression plate is fractured with mild medial angulation. There is no acute bony fracture or dislocation. There is posterior angu lation of the distal humerus. There is a joint effusion with peripheral calcifications. The overlying soft tissues are intact. IMPRESSION: Fracturing of medial compression plate. No acute bony fracture or dislocation. There is mild posterio r angulation of the distal humerus. There is a small joint effusion.
--- NOTE | 2018-08-27 15:06 | Progress Note ---
Assessment and Plan Assessment and plan: Sepsis secondary to cellulitis of the lower extremities - sepsis evidenced with tachycardia and leukocytosis - Patient on IV Unasyn and vancomycin - ID consult appreciated - Wound care consult A. fib - On Coumadin, INR is high, will held - And metoprolol for rate control History of CVA - Mild residual right-sided weakness - Continue supportive care Congestive heart failure - Chest x-ray showed pulmonary venous congestion - Continue furosemide and metolazone - And is followed by Dr. Shi in the clinic and put a consult for [facility] CKD - Nephrology is following Disposition - Continue inpatient care History Interval history: Patient was seen and evaluated this morning, discussed with his . patient was sleepy but when awake he is alert and oriented. Was not eating. Had fever episode. Hospitalist Physical - Physical exam Narrative exam: Not in cardiopulmonary distress. The patient is obese. Vital signs as documented. Head exam is unremarkable. No scleral icterus . Neck is without jugular venous distension, thyromegaly, or carotid bruits. Lungs are clear to auscultation. Cardiac exam reveals regular rate and Rhythm. Abdominal exam reveals normal bowel sounds. Extremities are nonedematous and both femoral and pedal pulses are normal. 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 Sleepy. - Constitutional Vitals: Temp Pulse Resp BP Pulse Ox 98.4 F 109 H 22 129/64 95 08/27/18 02:00 08/27/18 11:23 08/26/18 19:49 08/27/18 11:23 08/27/18 02:00 Results - Labs CBC & Chem 7: 08/27/18 04:03 08/27/18 04:03 Labs: Laboratory Last Values WBC 16.1 K/mm3 (4.5-11.0) H 08/27/18 04:03 RBC 3.85 M/mm3 (3.65-5.03) 08/27/18 04:03 Hgb 9.6 gm/dl (11.8-15.2) L 08/27/18 04:03 Hct 31.1 % (35.5-45.6) L 08/27/18 04:03 MCV 81 fl (84-94) L 08/27/18 04:03 MCH 25 pg (28-32) L 08/27/18 04:03 MCHC 31 % (32-34) L 08/27/18 04:03 RDW 21.2 % (13.2-15.2) H 08/27/18 04:03 Plt Count 368 K/mm3 (140-440) 08/27/18 04:03 Lymph % (Auto) 5.5 % (13.4-35.0) L 08/27/18 04:03 [place] % (Auto) 11.5 % (0.0-7.3) H 08/27/18 04:03 Eos % (Auto) 0.9 % (0.0-4.3) 08/27/18 04:03 Baso % (Auto) 0.4 % (0.0-1.8) 08/27/18 04:03 Lymph # 0.9 K/mm3 (1.2-5.4) L 08/27/18 04:03 [place] # 1.8 K/mm3 (0.0-0.8) H 08/27/18 04:03 Eos # 0.2 K/mm3 (0.0-0.4) 08/27/18 04:03 Baso # 0.1 K/mm3 (0.0-0.1) 08/27/18 04:03 Seg Neutrophils % 81.7 % (40.0-70.0) H 08/27/18 04:03 Seg Neutrophils # 13.1 K/mm3 (1.8-7.7) H 08/27/18 04:03 ESR 111 mm/Hr (0-20) 08/27/18 11:11 PT 36.1 Sec. (12.2-14.9) H 08/27/18 04:03 INR 3.59 (0.87-1.13) H 08/27/18 04:03 APTT 43.1 Sec. (24.2-36.6) H 08/25/18 16:49 Sodium 133 mmol/L (137-145) L 08/27/18 04:03 Potassium 3.9 mmol/L (3.6-5.0) 08/27/18 04:03 Chloride 90.1 mmol/L (98-107) L 08/27/18 04:03 Carbon Dioxide 30 mmol/L (22-30) 08/27/18 04:03 Anion Gap 17 mmol/L 08/27/18 04:03 BUN 39 mg/dL (9-20) H 08/27/18 04:03 Creatinine 2.4 mg/dL (0.8-1.5) H 08/27/18 04:03 Estimated GFR 27 ml/min 08/27/18 04:03 BUN/Creatinine Ratio 16 % 08/27/18 04:03 Glucose 283 mg/dL (75-100) H 08/27/18 04:03 POC Glucose 324 (70-105) H 08/27/18 11:36 Hemoglobin A1c 8.7 % (4-6) H 08/26/18 04:58 Calcium 8.9 mg/dL (8.4-10.2) 08/27/18 04:03 Magnesium 2.00 mg/dL (1.7-2.3) 08/25/18 16:49 Total Creatine Kinase 116 units/L (55-170) 08/25/18 16:49 Troponin T 0.080 ng/mL (0.00-0.029) H 08/25/18 16:49 C-Reactive Protein 17.50 mg/dL (0.00-1.30) H 08/27/18 11:11 Triglycerides 121 mg/dL (2-149) 08/25/18 16:49 Cholesterol 105 mg/dL (50-199) 08/25/18 16:49 LDL Cholesterol Direct 58 mg/dL (50-130) 08/25/18 16:49 HDL Cholesterol 31 mg/dL (40-59) L 08/25/18 16:49 Cholesterol/HDL Ratio 3.38 % 08/25/18 16:49 Urine Color Yellow (Yellow) 08/26/18 12:55 Urine Turbidity Clear (Clear) 08/26/18 12:55 Urine pH 5.0 (5.0-7.0) 08/26/18 12:55 Ur Specific [place] 1.009 (1.003-1.030) 08/26/18 12:55 Urine Protein 30 mg/dl mg/dL (Negative) 08/26/18 12:55 Urine Glucose (UA) 50 mg/dL (Negative) 08/26/18 12:55 Urine Ketones Tr mg/dL (Negative) 08/26/18 12:55 Urine Blood Mod (Negative) 08/26/18 12:55 Urine Nitrite Neg (Negative) 08/26/18 12:55 Urine Bilirubin Neg (Negative) 08/26/18 12:55 Urine Urobilinogen < 2.0 mg/dL (<2.0) 08/26/18 12:55 Ur Leukocyte Esterase Neg (Negative) 08/26/18 12:55 Urine WBC (Auto) 4.0 /HPF (0.0-6.0) 08/26/18 12:55 Urine RBC (Auto) 7.0 /HPF (0.0-6.0) 08/26/18 12:55 U Epithel Cells (Auto) 1.0 /HPF (0-13.0) 08/26/18 12:55 Urine Mucus Few /HPF 08/26/18 12:55 Random Vancomycin 15.5 ug/mL (0-40.0) 08/27/18 04:03 Nutrition/Malnutrition Assess - Dietary Evaluation Nutrition/Malnutrition Findings: Nutrition Notes Start: 08/26/18 13:18 Freq: Status: Active Protocol: Document 08/26/18 13:19 LP (Rec: 08/26/18 13:25 LP [id number]) Nutrition Notes 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 Pt sleeping at time of visit. 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 Pt blood sugars at home fluctuate. Pt would not like a supplement. Food preferences noted. Burn Absent Trauma Absent #1 Nutrition Diagnoses Inadequate oral intake Etiology decreased appetite As Evidenced by Signs and Symptoms Pt not eating well [employer] and currently NPO Is patient on ventilator? No Is Patient Ambulatory and/or Out of Bed No REE-([facility]-confined to bed) 2218.116 Kcal/Kg value to use for calculation 16 Approximate Energy Requirements Using 1742 kcal/Kg Calculation Used for Recommendations Kcal/kg Additional Notes Protein needs are 86g (0.8g/kg ) Fluid needs are 1ml/kcal Nutrition Intervention Change Diet Order: Advannce diet to cardiac/ consistent CHO Goal #1 Advance diet Anticipated Discharge Needs: Cardiac consistent CHO Follow-Up By: 08/29/18 Additional Comments Follow for intakes
[2018-08-27] MEDS: MEGACE PO SCH (16:32)
[2018-08-27] MEDS: MAXIPIME/NS 1 GM/100 ML 1 GM/100 ML BAG IV SCH ×2 (16:37→21:33)
[2018-08-27] MEDS: ZYVOX 600MG/300ML 600 MG/300 ML BAG IV SCH ×2 (16:38→21:33)
[2018-08-27] MEDS ORDERED: COUMADIN NO DOSE TODAY PO ONE (17:00)
[2018-08-27] MEDS ORDERED: VANCOMYCIN 1,500 MG in NACL 0.9% 500 ML 500 ML IV ONE (18:00)
--- NOTE | 2018-08-27 18:51 | Consultation ---
History of Present Illness Consult date: 08/27/18 Requesting physician: NEREIDA SANTIAGO Consult reason: atrial fibrillation, other (cellulitis) History of present illness: 67-year-old gentleman with a past medical history of atrial fibrillation, heart failure with preserved ejection fraction 52% diabetes, hyperlipidemia, hypertension, single kidney with chronic kidney disease followed by Dr. Griffiths, history of penile cancer in 2011, cerebral palsy, stroke with residual right- sided weakness in 2014 processes of the [facility] emergency department complaining of fatigue malaise and increasing weakness. The patient has a history of recurrent falls and in the emergency department he was noted to have an open wound to his left foot. Past History Past Medical History: diabetes, hypertension, renal failure, other (renal cell cancer) Past Surgical History: Other (history of unilateral nephrectomy) Social history: no significant social history Family history: no significant family history Medications and Allergies Allergies Allergy/AdvReac Type Severity Reaction Status Date / Time No Known Allergies Allergy Unverified 08/25/18 16:05 Home Medications Medication Instructions Recorded Confirmed Last Taken Type Bethanechol 25 mg PO BID 08/25/18 08/26/18 08/24/18 12:00 History Digoxin [Lanoxin] 0.125 mg PO DAILY 08/25/18 08/25/18 08/25/18 History Finasteride [Proscar] 5 mg PO QDAY 08/25/18 08/25/18 08/25/18 History Furosemide [Lasix TAB] 40 mg PO BID 08/25/18 08/25/18 08/25/18 History Insulin Regular,Human U-500(Nf 90 - 110 units SUB-Q TID 08/25/18 08/25/18 08/25/18 History [HumuLIN R] Metoprolol [Lopressor TAB] 75 mg PO BID 08/25/18 08/25/18 08/25/18 History Pravastatin [Pravachol] 80 mg PO QHS 08/25/18 08/25/18 08/24/18 History Tamsulosin HCl [Flomax] 0.8 mg PO HS 08/25/18 08/25/18 08/24/18 History Warfarin [Coumadin] 3.75 mg PO QDAY 08/25/18 08/25/18 08/24/18 History cephALEXin [Keflex] 500 mg PO Q12HR 08/25/18 08/25/18 08/25/18 History metOLazone [Metolazone] 2.5 mg PO QDAY 08/25/18 08/25/18 08/25/18 History Active Meds: Active Medications Bethanechol Chloride (Urecholine) 25 mg PO BID [facility] Last Admin: 08/27/18 11:13 Dose: 25 mg Documented by: Digoxin (Lanoxin) 0.125 mg PO DAILY [facility] Last Admin: 08/27/18 11:23 Dose: 0.125 mg Documented by: Finasteride (Proscar) 5 mg PO QDAY [facility] Last Admin: 08/27/18 11:13 Dose: 5 mg Documented by: Furosemide (Lasix) 40 mg PO QDAY [facility] Last Admin: 08/27/18 11:12 Dose: 40 mg Documented by: Cefepime HCl (Maxipime/Ns 1 Gm/100 Ml) 1 gm in 100 mls @ 200 mls/hr IV Q12HR [facility]; Protocol Last Admin: 08/27/18 16:37 Dose: 200 mls/hr Documented by: Linezolid (Zyvox 600mg/300ml) 600 mg in 300 mls @ 300 mls/hr IV Q12HR [facility]; Protocol Last Admin: 08/27/18 16:38 Dose: 300 mls/hr Documented by: Insulin Human Lispro (Humalog) 0 unit SUB-Q ACHS [facility]; Protocol Last Admin: 08/27/18 16:31 Dose: 10 unit Documented by: Megestrol Acetate (Megace) 400 mg PO QDAY [facility] Last Admin: 08/27/18 16:32 Dose: 400 mg Documented by: Metolazone (Zaroxolyn) 2.5 mg PO QDAY [facility] Last Admin: 08/27/18 11:13 Dose: 2.5 mg Documented by: Metoprolol Tartrate (Lopressor) 75 mg PO BID [facility] Last Admin: 08/27/18 11:16 Dose: 75 mg Documented by: Pravastatin Sodium (Pravachol) 80 mg PO QHS [facility] Last Admin: 08/26/18 22:06 Dose: 80 mg Documented by: Tamsulosin HCl (Flomax) 0.8 mg PO [facility] Last Admin: 08/26/18 22:17 Dose: 0.8 mg Documented by: Review of Systems Constitutional: weight loss, fever, chills Ears, nose, mouth and throat: no ear discharge, no tinnitis Cardiovascular: edema, no chest pain, no orthopnea, no palpitations, no syncope Respiratory: no cough, no hemoptysis, no dyspnea on exertion Gastrointestinal: no abdominal pain, no nausea, no vomiting Musculoskeletal: no neck pain, no shooting arm pain Integumentary: rash Psychiatric: insomnia, change in appetite Endocrine: no polydipsia, no polyuria Physical Examination Vital Signs Pulse Ox 90 08/25/18 15:58 General appearance: no acute distress HEENT: Positive: PERRL Neck: Positive: neck supple, trachea midline Cardiac: Positive: Irregularly Regular, Tachycardia Lungs: Positive: clear to auscultation, Decreased Breath Sounds Abdomen: Positive: Soft, Active Bowel Sounds Male genitourinary: Positive: deferred Skin: Positive: Rash Extremities: Present: edema, warm Results 08/27/18 04:03 08/27/18 04:03 Coagulation 08/27/18 Range/Units 04:03 PT 36.1 H (12.2-14.9) Sec. INR 3.59 H (0.87-1.13) CBC 08/27/18 Range/Units 04:03 WBC 16.1 H (4.5-11.0) K/mm3 RBC 3.85 (3.65-5.03) M/mm3 Hgb 9.6 L (11.8-15.2) gm/dl Hct 31.1 L (35.5-45.6) % Plt Count 368 (140-440) K/mm3 Lymph # 0.9 L (1.2-5.4) K/mm3 [place] # 1.8 H (0.0-0.8) K/mm3 Eos # 0.2 (0.0-0.4) K/mm3 Baso # 0.1 (0.0-0.1) K/mm3 Comprehensive Metabolic Panel 08/27/18 Range/Units 04:03 Sodium 133 L (137-145) mmol/L Potassium 3.9 (3.6-5.0) mmol/L Chloride 90.1 L (98-107) mmol/L Carbon Dioxide 30 (22-30) mmol/L BUN 39 H (9-20) mg/dL Creatinine 2.4 H (0.8-1.5) mg/dL Glucose 283 H (75-100) mg/dL Calcium 8.9 (8.4-10.2) mg/dL Assessment and Plan Sepsis/cellulitis of the lower extremities ID consult appreciated Wound care consult Daryn fib Supratherapeutic INR Continue metoprolol 75 BID Echocardiogram 04/05/2018: Ejection fraction 52%, no significant valvular abnormalities noted Myocardial perfusion scan 08/04/2017: This is an abnormal myocardial perfusion imaging study demonstrated a mixture scar plus ischemia in the basal inferior, mid inferior and lateral myocardial sharma. Patient appears to have sd- infarction ischemia. Previous study also showed inferior mostly fixed defect. Ejection fraction 69%
[2018-08-27] MEDS: FLOMAX PO SCH (21:34)
[2018-08-27] MEDS: PRAVACHOL PO SCH (21:34)
[2018-08-28 03:24] LABS: Basophils # (Auto) 0.1 K/mm3 (0.0-0.1); Basophils % (Auto) 0.4 % (0.0-1.8); Eosinophils # (Auto) 0.4 K/mm3 (0.0-0.4); Eosinophils % (Auto) 2.5 % (0.0-4.3); Hematocrit 28.2 % (35.5-45.6); Hemoglobin 8.7 gm/dl (11.8-15.2); Lymphocytes # (Auto) 1.1 K/mm3 (1.2-5.4); Lymphocytes % (Auto) 7.8 % (13.4-35.0); Mean Corpuscular HGB Conc 31 % (32-34); Mean Corpuscular Volume 81 fl (84-94); Monocytes # (Auto) 1.5 K/mm3 (0.0-0.8); Monocytes % (Auto) 10.6 % (0.0-7.3); Platelet Count 333 K/mm3 (140-440); Red Blood Count 3.48 M/mm3 (3.65-5.03)
[2018-08-28 03:28] LABS: Red Cell Distribution Width 20.6 % (13.2-15.2)
[2018-08-28 03:40] LABS: INR 4.06 (0.87-1.13)
[2018-08-28 03:44] LABS: Calcium 8.3 mg/dL (8.4-10.2)
[2018-08-28] MEDS: HumaLOG SUB-Q SCH ×4 (07:13→22:18)
--- NOTE | 2018-08-28 08:04 | Progress Note ---
Assessment and Plan Impression * Chronic kidney disease * Sepsis * Left foot ulcer * Fluid overload * History of renal cell CA. Status post unilateral nephrectomy * Hypertension * Diabetes Recommendations * Serum creatinine slowly rising. * Volume overload seems to have resolved. Reduce loop diuretics * IV antibiotic and culture as per primary team * Avoid nephrotoxins * Monitor fluid status and electrolytes closely * ID consult appreciated * Check an ultrasound of his kidneys as well as PVR Subjective Date of service: 08/28/18 Interval history: Patient feels somewhat better today. His appetite is still poor. No nausea or vomiting. Objective - Vital Signs Vital signs: Vital Signs - 12hr 08/28/18 08/28/18 08/28/18 02:00 02:25 07:10 Temperature 98.0 F 98.0 F Pulse Rate 75 78 Respiratory 20 18 Rate Blood Pressure 114/49 122/49 O2 Sat by Pulse 95 96 Oximetry - General Appearance General appearance: well-developed, well-nourished, appears stated age EENT: PERRL, mucous membranes moist Neck: no JVD, no thyromegaly, no carotid bruit, supple Respiratory: Present: Clear to Ascultation Cardiology: regular, normal heart rate Gastrointestinal: normal, normoactive bowel sounds Integumentary: other (no edema. Wrinkling of skin noted. Ulceration noted in the dorsum of his left foot) - Lab 08/28/18 02:37 08/28/18 02:37 Most recent lab results Calcium 8.3 mg/dL (8.4-10.2) L 08/28/18 02:37 Magnesium 2.00 mg/dL (1.7-2.3) 08/25/18 16:49 Medications & Allergies - Medications Allergies/Adverse Reactions: Allergies No Known Allergies Allergy (Unverified 08/25/18 16:05) Home Medications: Home Medications Medication Instructions Recorded Confirmed Last Taken Type Bethanechol 25 mg PO BID 08/25/18 08/26/18 08/24/18 12:00 History Digoxin [Lanoxin] 0.125 mg PO DAILY 08/25/18 08/25/18 08/25/18 History Finasteride [Proscar] 5 mg PO QDAY 08/25/18 08/25/18 08/25/18 History Furosemide [Lasix TAB] 40 mg PO BID 08/25/18 08/25/18 08/25/18 History Insulin Regular,Human U-500(Nf 90 - 110 units SUB-Q TID 08/25/18 08/25/18 08/25/18 History [HumuLIN R] Metoprolol [Lopressor TAB] 75 mg PO BID 08/25/18 08/25/18 08/25/18 History Pravastatin [Pravachol] 80 mg PO QHS 08/25/18 08/25/18 08/24/18 History Tamsulosin HCl [Flomax] 0.8 mg PO HS 08/25/18 08/25/18 08/24/18 History Warfarin [Coumadin] 3.75 mg PO QDAY 08/25/18 08/25/18 08/24/18 History cephALEXin [Keflex] 500 mg PO Q12HR 08/25/18 08/25/18 08/25/18 History metOLazone [Metolazone] 2.5 mg PO QDAY 08/25/18 08/25/18 08/25/18 History Active Medications: Generic Name Dose Route Start Last Admin Trade Name Jose Angelq PRN Reason Stop Dose Admin Bethanechol Chloride 25 mg 08/26/18 10:00 08/27/18 21:35 Urecholine PO 25 mg BID JOAN Administration Digoxin 0.125 mg 08/26/18 10:00 08/27/18 11:23 Lanoxin PO 0.125 mg DAILY JOAN Administration Finasteride 5 mg 08/26/18 10:00 08/27/18 11:13 Proscar PO 5 mg QDAY JOAN Administration Furosemide 40 mg 08/26/18 10:00 08/27/18 11:12 Lasix PO 40 mg QDAY JOAN Administration Cefepime HCl 1 gm in 100 mls @ 200 mls/hr 08/27/18 15:00 08/27/18 22:03 Maxipime/Ns 1 Gm/100 Ml IV Infused Q12HR JOAN Infusion Protocol Linezolid 600 mg in 300 mls @ 300 mls/hr 08/27/18 15:00 08/27/18 22:32 Zyvox 600mg/300ml IV Infused Q12HR JOAN Infusion Protocol Insulin Human Lispro 0 unit 08/26/18 07:30 08/28/18 07:13 Humalog SUB-Q 8 unit ACHS JOAN Administration Protocol Megestrol Acetate 400 mg 08/27/18 14:00 08/27/18 16:32 Megace PO 400 mg QDAY JOAN Administration Metolazone 2.5 mg 08/26/18 10:00 08/27/18 11:13 Zaroxolyn PO 2.5 mg QDAY JOAN Administration Metoprolol Tartrate 75 mg 08/26/18 10:00 08/27/18 21:35 Lopressor PO 75 mg BID JOAN Administration Pravastatin Sodium 80 mg 08/26/18 22:00 08/27/18 21:34 Pravachol PO 80 mg QHS JOAN Administration Tamsulosin HCl 0.8 mg 08/26/18 22:00 08/27/18 21:34 Flomax PO 0.8 mg HS JOAN Administration
--- NOTE | 2018-08-28 08:43 | Progress Note ---
Assessment and Plan Imagin08/25/2018 Chest: mild congestive failure verses less likely infectious interstitial infiltrates. No definite effusion 08/25/2018 Foot xray: Possible nondisplaced fracture of the left 2nd toe middle phalanx. Globally osteopenic bones in the foot with poor visualization of the tarsals. 08/25/2018: Tibia/Fibula x-ray: Degenerative arthritis left ankle. No definite fracture or dislocation left tibia or fibula Cultures: 08/27/2018 Left Foot: Staph Aureus 08/28/2018 Blood: in progress A/P: 66-year-old male with a history of obesity, diabetes, hypertension and atrial fibrillation, admitted with: 1. Sepsis: Improved, leukocytosis continuing. Etiology unclear. large open wound on dorsal aspect of left foot.. +/- diabetic foot ulceration, +/-- cellulitis, Chest xray shows no infiltrates, U/A negative for UTI. New onset fevers. Blood cultures not drawn. Currently being treated with unasyn and vancomycin. -ESR- 111 -CRP 17.5 2. Left foot Cellulitis and wound infection : On exam, left foot warm, tender to touch with purulent drainage. + Diabetic neuropathy. Wound cultures sent. +2 bilateral pulses 3. Fevers: Resolved 4. Type 2 Diabetes uncontrolled: tight glycemic control 5. NATALIA/CKD - Status post unilateral nephrectomy. He has a single kidney and has CKD, discontinue vancomyin, start linezolid. Plan f/u blood cultures f/u Left Foot wound culture Continue Cefepime 1 gm q 12 Hours Continue Linezolid IV 600 BID If clinically stable will switch to PO Linezolid tomorrow [facility] M: [phone] O:[phone] Subjective Date of service: 08/28/18 Interval history: Patient seen and examined. at bedside. Denies fevers, rashes or SOB. Stated that he was able to sleep better last night. Nurses notes, labs and reports reviewed, Discussed with patient and . Objective - Exam Narrative Exam: Constitutional: Awake, alert, conversant Head, Ears, Nose: Normocephalic, atraumatic. External ears, nose normal Eyes: Conjunctivae/corneas clear. No icterus. No ptosis. Neck: Supple, no meningeal signs Oral: dentition food, no thrush . Cardiovascular: S1, S2 normal. Respiratory: Good air entry, clear to auscultation bilaterally GI: Soft, non-tender; bowel sounds normal. No peritoneal signs Musculoskeletal: Right foot edema, bilateral extremity weakness Skin: left foot wound, with purulent drainage, 3rd toe superficial wound Hem/Lymphatic: No palpable cervical or supraclavicular nodes. No lymphangitis Psych: Mood ok. Affect normal Neurological: Awake, oriented to place, self and time - Constitutional Vitals: Vital Signs Temp Pulse Resp BP Pulse Ox 98.0 F 78 18 122/49 96 08/28/18 07:10 08/28/18 07:10 08/28/18 07:10 08/28/18 07:10 08/28/18 07:10 Temperature -Last 24 Hours Temperature 98.0 F Temperature 98.0 F Temperature 98.6 F Temperature 98.2 F Temperature 99.1 F - Labs CBC & Chem 7: 08/28/18 02:37 08/28/18 02:37 Labs: Abnormal lab results 08/27/18 08/27/18 08/27/18 Range/Units 08:20 11:11 11:36 WBC (4.5-11.0) K/mm3 RBC (3.65-5.03) M/mm3 Hgb (11.8-15.2) gm/dl Hct (35.5-45.6) % MCV (84-94) fl MCH (28-32) pg MCHC (32-34) % RDW (13.2-15.2) % Lymph % (Auto) (13.4-35.0) % [place] % (Auto) (0.0-7.3) % Lymph # (1.2-5.4) K/mm3 [place] # (0.0-0.8) K/mm3 Seg Neutrophils % (40.0-70.0) % Seg Neutrophils # (1.8-7.7) K/mm3 PT (12.2-14.9) Sec. INR (0.87-1.13) Sodium (137-145) mmol/L Potassium (3.6-5.0) mmol/L Chloride (98-107) mmol/L BUN (9-20) mg/dL Creatinine (0.8-1.5) mg/dL Glucose (75-100) mg/dL POC Glucose 319 H 324 H (70-105) Calcium (8.4-10.2) mg/dL C-Reactive Protein 17.50 H (0.00-1.30) mg/dL 08/27/18 08/27/18 08/28/18 Range/Units 16:31 21:58 02:37 WBC (4.5-11.0) K/mm3 RBC (3.65-5.03) M/mm3 Hgb (11.8-15.2) gm/dl Hct (35.5-45.6) % MCV (84-94) fl MCH (28-32) pg MCHC (32-34) % RDW (13.2-15.2) % Lymph % (Auto) (13.4-35.0) % [place] % (Auto) (0.0-7.3) % Lymph # (1.2-5.4) K/mm3 [place] # (0.0-0.8) K/mm3 Seg Neutrophils % (40.0-70.0) % Seg Neutrophils # (1.8-7.7) K/mm3 PT 39.6 H (12.2-14.9) Sec. INR 4.06 H (0.87-1.13) Sodium (137-145) mmol/L Potassium (3.6-5.0) mmol/L Chloride (98-107) mmol/L BUN (9-20) mg/dL Creatinine (0.8-1.5) mg/dL Glucose (75-100) mg/dL POC Glucose 367 H 419 H (70-105) Calcium (8.4-10.2) mg/dL C-Reactive Protein (0.00-1.30) mg/dL 08/28/18 08/28/18 08/28/18 Range/Units 02:37 02:37 07:09 WBC 14.0 H (4.5-11.0) K/mm3 RBC 3.48 L (3.65-5.03) M/mm3 Hgb 8.7 L (11.8-15.2) gm/dl Hct 28.2 L (35.5-45.6) % MCV 81 L (84-94) fl MCH 25 L (28-32) pg MCHC 31 L (32-34) % RDW 20.6 H (13.2-15.2) % Lymph % (Auto) 7.8 L (13.4-35.0) % [place] % (Auto) 10.6 H (0.0-7.3) % Lymph # 1.1 L (1.2-5.4) K/mm3 [place] # 1.5 H (0.0-0.8) K/mm3 Seg Neutrophils % 78.7 H (40.0-70.0) % Seg Neutrophils # 11.0 H (1.8-7.7) K/mm3 PT (12.2-14.9) Sec. INR (0.87-1.13) Sodium 129 L (137-145) mmol/L Potassium 3.5 L (3.6-5.0) mmol/L Chloride 87.4 L (98-107) mmol/L BUN 48 H (9-20) mg/dL Creatinine 2.7 H (0.8-1.5) mg/dL Glucose 364 H (75-100) mg/dL POC Glucose 348 H (70-105) Calcium 8.3 L (8.4-10.2) mg/dL C-Reactive Protein (0.00-1.30) mg/dL
[2018-08-28] MEDS: MAXIPIME/NS 1 GM/100 ML 1 GM/100 ML BAG IV SCH ×2 (08:59→22:13)
--- NOTE | 2018-08-28 09:01 | Gastroenterology Consultation ---
Addendum entered and electronically signed by JULIAN URIOSTEGUI MD 08/28/18 17:35: I have personally interviewed and examined the patient. Likely multifactorial anemia, at least in part due to oozing (blood) foot wound. Will monitor conservatively for now. Original Note: History of Present Illness - Reason for Consult Consult date: 08/28/18 anemia Requesting physician: NEREIDA SANTIAGO - History of Present Illness Patient is a 67 y/o male with PMH of obesity, DM, HTN, A-fib (on coumadin), CVA (residual right-sided weakness), HLD, CKD (h/o renal cell CA; s/p unilateral nephrectomy), h/o penile CA (2011), and cerebral palsy who presented to ED with c/o weakness, malaise, fatigue, recurrent falls, and decreased urination. He was admitted and currently being treated for sepsis 2/2 left foot cellulitis/wound infection, CKD, and fluid overload. ID, nephrology, and cardiology are following. GI has been consulted for anemia. This morning patient was resting in bed w/o acute distress but weak appearing. at bedside who assisted with obtaining history. No active signs of bleeding such as hematemesis, melena, or hematochezia. Last BM yesterday with brown stool per /nursing. Admits to occasional indigestion and constipation to which he takes Zantac PRN and Miralax at home. Denies CP, SOB, wt loss, abd pain, N/V, dysphagia, or diarrhea. No NSAID use. Denies any hx of PUD or previous GI bleeding, however according to chart review he was seen in 2014 by our service for hematemesis/anemia undergoing an EGD by Dr. Bowser that revealed a hiatal hernia, small [place]- Baca tear, gastritis, and duodenitis. Pt/family reports last colonoscopy approximately 5 years ago with negative results (records unavailable). No known Fhx of GI cancers. Past History Past Medical History: other (as per HPI) Past Surgical History: Other (unilateral nephrectomy) Social history: . denies: smoking, alcohol abuse Family history: no significant family history Medications and Allergies Allergies Allergy/AdvReac Type Severity Reaction Status Date / Time No Known Allergies Allergy Unverified 08/25/18 16:05 Home Medications Medication Instructions Recorded Confirmed Last Taken Type Bethanechol 25 mg PO BID 08/25/18 08/26/18 08/24/18 12:00 History Digoxin [Lanoxin] 0.125 mg PO DAILY 08/25/18 08/25/18 08/25/18 History Finasteride [Proscar] 5 mg PO QDAY 08/25/18 08/25/18 08/25/18 History Furosemide [Lasix TAB] 40 mg PO BID 08/25/18 08/25/18 08/25/18 History Insulin Regular,Human U-500(Nf 90 - 110 units SUB-Q TID 08/25/18 08/25/18 08/25/18 History [HumuLIN R] Metoprolol [Lopressor TAB] 75 mg PO BID 08/25/18 08/25/18 08/25/18 History Pravastatin [Pravachol] 80 mg PO QHS 08/25/18 08/25/18 08/24/18 History Tamsulosin HCl [Flomax] 0.8 mg PO HS 08/25/18 08/25/18 08/24/18 History Warfarin [Coumadin] 3.75 mg PO QDAY 08/25/18 08/25/18 08/24/18 History cephALEXin [Keflex] 500 mg PO Q12HR 08/25/18 08/25/18 08/25/18 History metOLazone [Metolazone] 2.5 mg PO QDAY 08/25/18 08/25/18 08/25/18 History Active Meds: Active Medications Bethanechol Chloride (Urecholine) 25 mg PO BID [facility] Last Admin: 08/27/18 21:35 Dose: 25 mg Documented by: Digoxin (Lanoxin) 0.125 mg PO DAILY [facility] Last Admin: 08/27/18 11:23 Dose: 0.125 mg Documented by: Finasteride (Proscar) 5 mg PO QDAY [facility] Last Admin: 08/27/18 11:13 Dose: 5 mg Documented by: Furosemide (Lasix) 40 mg PO QDAY [facility] Last Admin: 08/27/18 11:12 Dose: 40 mg Documented by: Cefepime HCl (Maxipime/Ns 1 Gm/100 Ml) 1 gm in 100 mls @ 200 mls/hr IV Q12HR [facility]; Protocol Last Infusion: 08/27/18 22:03 Dose: Infused Documented by: Linezolid (Zyvox 600mg/300ml) 600 mg in 300 mls @ 300 mls/hr IV Q12HR [facility]; Protocol Last Infusion: 08/27/18 22:32 Dose: Infused Documented by: Insulin Human Lispro (Humalog) 0 unit SUB-Q ACHS [facility]; Protocol Last Admin: 08/28/18 07:13 Dose: 8 unit Documented by: Megestrol Acetate (Megace) 400 mg PO QDAY [facility] Last Admin: 08/27/18 16:32 Dose: 400 mg Documented by: Metoprolol Tartrate (Lopressor) 75 mg PO BID [facility] Last Admin: 08/27/18 21:35 Dose: 75 mg Documented by: Pravastatin Sodium (Pravachol) 80 mg PO QHS [facility] Last Admin: 08/27/18 21:34 Dose: 80 mg Documented by: Tamsulosin HCl (Flomax) 0.8 mg PO HS [facility] Last Admin: 08/27/18 21:34 Dose: 0.8 mg Documented by: medications reviewed/updated as required Review of Systems - Review of Systems All systems: negative Constitutional: fatigue, weakness Gastrointestinal: no abdominal pain, no nausea, no vomiting, no hematemesis, no melena, no hematochezia Exam - Constitutional Vital Signs: Temp Pulse Resp BP Pulse Ox 98.0 F 78 18 122/49 96 08/28/18 07:10 08/28/18 07:10 08/28/18 07:10 08/28/18 07:10 08/28/18 07:10 General appearance: no acute distress, obese, other (weak appearing) - Respiratory Respiratory: bilateral: diminished - Cardiovascular Rhythm: other (irregular) - Gastrointestinal General gastrointestinal: Present: soft, non-tender, non-distended, normal bowel sounds, other (obese) Rectal Exam: other (brown stool present upon exam on bed pad (supervisor stave cutting present during exam; Rosie RN)) - Musculoskeletal Musculoskeletal: other (right sided weakness, LE ulcer/wound) - Neurologic Neurological: alert and oriented x3 - Labs CBC & Chem 7: 08/28/18 02:37 08/28/18 02:37 Lab Results: Laboratory Results - last 24 hr 08/27/18 08/27/18 08/27/18 08:20 11:11 11:11 WBC RBC Hgb Hct MCV MCH MCHC RDW Plt Count Lymph % (Auto) [place] % (Auto) Eos % (Auto) Baso % (Auto) Lymph # [place] # Eos # Baso # Seg Neutrophils % Seg Neutrophils # ESR 111 PT INR Sodium Potassium Chloride Carbon Dioxide Anion Gap BUN Creatinine Estimated GFR BUN/Creatinine Ratio Glucose POC Glucose 319 H Calcium C-Reactive Protein 17.50 H 08/27/18 08/27/18 08/27/18 11:36 16:31 21:58 WBC RBC Hgb Hct MCV MCH MCHC RDW Plt Count Lymph % (Auto) [place] % (Auto) Eos % (Auto) Baso % (Auto) Lymph # [place] # Eos # Baso # Seg Neutrophils % Seg Neutrophils # ESR PT INR Sodium Potassium Chloride Carbon Dioxide Anion Gap BUN Creatinine Estimated GFR BUN/Creatinine Ratio Glucose POC Glucose 324 H 367 H 419 H Calcium C-Reactive Protein 08/28/18 08/28/18 08/28/18 02:37 02:37 02:37 WBC 14.0 H RBC 3.48 L Hgb 8.7 L Hct 28.2 L MCV 81 L MCH 25 L MCHC 31 L RDW 20.6 H Plt Count 333 Lymph % (Auto) 7.8 L [place] % (Auto) 10.6 H Eos % (Auto) 2.5 Baso % (Auto) 0.4 Lymph # 1.1 L [place] # 1.5 H Eos # 0.4 Baso # 0.1 Seg Neutrophils % 78.7 H Seg Neutrophils # 11.0 H ESR PT 39.6 H INR 4.06 H Sodium 129 L Potassium 3.5 L Chloride 87.4 L Carbon Dioxide 30 Anion Gap 15 BUN 48 H Creatinine 2.7 H Estimated GFR 24 BUN/Creatinine Ratio 18 Glucose 364 H POC Glucose Calcium 8.3 L C-Reactive Protein 08/28/18 07:09 WBC RBC Hgb Hct MCV MCH MCHC RDW Plt Count Lymph % (Auto) [place] % (Auto) Eos % (Auto) Baso % (Auto) Lymph # [place] # Eos # Baso # Seg Neutrophils % Seg Neutrophils # ESR PT INR Sodium Potassium Chloride Carbon Dioxide Anion Gap BUN Creatinine Estimated GFR BUN/Creatinine Ratio Glucose POC Glucose 348 H Calcium C-Reactive Protein Assessment and Plan 1.anemia-chronic -stool occult positive -H/H 8.7/28.2 (trended down compared to previous labs; H/H at [facility] on 08/18/18 was 10.4/34.2) -continue to monitor H/H and transfuse as needed -hold blood thinning medications (coumadin on hold; INR supratherapeutic at 4.06) -no active signs of bleeding (brown stool on bed pad upon exam) -currently HD stable -EGD 2014 showed hiatal hernia, small M-W tear, gastritis, and duodenitis -last colonoscopy approximately 5 years ago with negative results per pt/family report (records unavailable) -etiology unclear- worsening of kidney disease? vs other -no plans for scope at this time given no clinical evidence of significant GI bleeding- will consider endoscopic evaluation based on clinical course once INR < 1.5 -will order iron studies -start on PPI -continue supportive care -further recommendations to follow
[2018-08-28] MEDS: LASIX PO SCH (09:05)
[2018-08-28] MEDS: LANOXIN PO SCH (09:06)
[2018-08-28] MEDS: LOPRESSOR PO SCH ×2 (09:06→22:08)
[2018-08-28] MEDS: PROSCAR PO SCH (09:08)
[2018-08-28] MEDS: MEGACE PO SCH ×2 (09:09→09:13)
[2018-08-28] MEDS: URECHOLINE PO SCH ×2 (09:10→22:08)
[2018-08-28] MEDS: ZYVOX 600MG/300ML 600 MG/300 ML BAG IV SCH ×2 (09:44→22:12)
[2018-08-28] MEDS: PROTONIX IV SCH (10:51)
--- NOTE | 2018-08-28 11:03 | Progress Note ---
Assessment and Plan Sepsis/cellulitis of the lower extremities ID consult appreciated Wound care consult A. fib Supratherapeutic INR - suspect 2/2 concurrent antibiotic use; coumadin held; consider reversal and/or FFP per primary Continue metoprolol 75 BID Initiate remote telemetry Anemia Stool occult positive Per GI, no plans for scope at this time given no clinical evidence of significant GI bleeding - will consider endoscopic evaluation based on clinical course once INR < 1.5 ? NATALIA on CKD Nephrology following Echocardiogram 04/05/2018: Ejection fraction 52%, no significant valvular abnormalities noted Myocardial perfusion scan 08/04/2017: This is an abnormal myocardial perfusion imaging study demonstrated a mixture scar plus ischemia in the basal inferior, mid inferior and lateral myocardial sharma. Patient appears to have sd- infarction ischemia. Previous study also showed inferior mostly fixed defect. Ejection fraction 69% The patient has been seen in conjunction with Dr. Sky who agrees with the assessment and plan of care. Subjective Date of service: 08/28/18 Principal diagnosis: cellulitis; afib; elevated INR Interval history: pt resting in bed, no current cardiac complaints. at bedside. Objective Last Vital Signs Temp 98.0 F 08/28/18 07:10 Pulse 80 08/28/18 09:06 Resp 18 08/28/18 09:54 BP 119/48 08/28/18 09:06 Pulse Ox 96 08/28/18 09:54 - Physical Examination General: No Apparent Distress HEENT: Positive: PERRL Neck: Positive: neck supple, trachea midline Cardiac: Positive: irregularly irregular, S1/S2 Lungs: Positive: Decreased Breath Sounds Abdomen: Positive: Soft, Active Bowel Sounds Skin: Positive: Rash, Other (BLE wounds, cellulitis) Extremities: Present: edema, warm - Labs and Meds Coagulation 08/28/18 Range/Units 02:37 PT 39.6 H (12.2-14.9) Sec. INR 4.06 H (0.87-1.13) CBC 08/28/18 Range/Units 02:37 WBC 14.0 H (4.5-11.0) K/mm3 RBC 3.48 L (3.65-5.03) M/mm3 Hgb 8.7 L (11.8-15.2) gm/dl Hct 28.2 L (35.5-45.6) % Plt Count 333 (140-440) K/mm3 Lymph # 1.1 L (1.2-5.4) K/mm3 [place] # 1.5 H (0.0-0.8) K/mm3 Eos # 0.4 (0.0-0.4) K/mm3 Baso # 0.1 (0.0-0.1) K/mm3 Comprehensive Metabolic Panel 08/28/18 Range/Units 02:37 Sodium 129 L (137-145) mmol/L Potassium 3.5 L (3.6-5.0) mmol/L Chloride 87.4 L (98-107) mmol/L Carbon Dioxide 30 (22-30) mmol/L BUN 48 H (9-20) mg/dL Creatinine 2.7 H (0.8-1.5) mg/dL Glucose 364 H (75-100) mg/dL Calcium 8.3 L (8.4-10.2) mg/dL
[2018-08-28] MEDS: HumuLIN R SUB-Q SCH ×2 (12:12→16:50)
[2018-08-28] MEDS ORDERED: [UNRECOGNIZED DRUG - OTHER] SUB-Q SCH (14:00)
[2018-08-28] MEDS ORDERED: VITAMIN K *ORAL LIQUID PO ONE (16:18)
--- NOTE | 2018-08-28 16:21 | Progress Note ---
Assessment and Plan Assessment and plan: Sepsis secondary to cellulitis of the lower extremities - sepsis evidenced with tachycardia and leukocytosis - Patient wascon IV Unasyn and vancomycin - ID consulted and switched to IV cefepime and linozelind - wound culture grew s.aureus - Wound care following A. fib - continue metoprolol - Coumadin is held for supratherapeutic INR, will give viatmin k History of CVA - Mild residual right-sided weakness - Continue supportive care Congestive heart failure - Patient is euvolemic - continue current medication regimen Anemia - FOBT is positive and GI consulted, No procedure needed for now - Correct INR DM with hyperglycemia - On novolin R CKD - Nephrology is following Disposition - Continue inpatient care History Interval history: Patient was seen and evaluated this morning, discussed with his . patient was alert and oriented. Hospitalist Physical - Physical exam Narrative exam: Not in cardiopulmonary distress. The patient is obese. Vital signs as documented. Head exam is unremarkable. No scleral icterus . Neck is without jugular venous distension, thyromegaly, or carotid bruits. Lungs are clear to auscultation. Cardiac exam reveals regular rate and Rhythm. Abdominal exam reveals normal bowel sounds. Extremities are nonedematous and both femoral and pedal pulses are normal. 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 Sleepy. - Constitutional Vitals: Temp Pulse Resp BP Pulse Ox 98.0 F 80 18 119/48 96 08/28/18 07:10 08/28/18 09:06 08/28/18 09:54 08/28/18 09:06 08/28/18 09:54 General appearance: Present: no acute distress Results - Labs CBC & Chem 7: 08/28/18 02:37 08/28/18 02:37 Labs: Laboratory Last Values WBC 14.0 K/mm3 (4.5-11.0) H 08/28/18 02:37 RBC 3.48 M/mm3 (3.65-5.03) L 08/28/18 02:37 Hgb 8.7 gm/dl (11.8-15.2) L 08/28/18 02:37 Hct 28.2 % (35.5-45.6) L 08/28/18 02:37 MCV 81 fl (84-94) L 08/28/18 02:37 MCH 25 pg (28-32) L 08/28/18 02:37 MCHC 31 % (32-34) L 08/28/18 02:37 RDW 20.6 % (13.2-15.2) H 08/28/18 02:37 Plt Count 333 K/mm3 (140-440) 08/28/18 02:37 Lymph % (Auto) 7.8 % (13.4-35.0) L 08/28/18 02:37 [place] % (Auto) 10.6 % (0.0-7.3) H 08/28/18 02:37 Eos % (Auto) 2.5 % (0.0-4.3) 08/28/18 02:37 Baso % (Auto) 0.4 % (0.0-1.8) 08/28/18 02:37 Lymph # 1.1 K/mm3 (1.2-5.4) L 08/28/18 02:37 [place] # 1.5 K/mm3 (0.0-0.8) H 08/28/18 02:37 Eos # 0.4 K/mm3 (0.0-0.4) 08/28/18 02:37 Baso # 0.1 K/mm3 (0.0-0.1) 08/28/18 02:37 Seg Neutrophils % 78.7 % (40.0-70.0) H 08/28/18 02:37 Seg Neutrophils # 11.0 K/mm3 (1.8-7.7) H 08/28/18 02:37 ESR 111 mm/Hr (0-20) 08/27/18 11:11 PT 39.6 Sec. (12.2-14.9) H 08/28/18 02:37 INR 4.06 (0.87-1.13) H 08/28/18 02:37 APTT 43.1 Sec. (24.2-36.6) H 08/25/18 16:49 Sodium 129 mmol/L (137-145) L 08/28/18 02:37 Potassium 3.5 mmol/L (3.6-5.0) L 08/28/18 02:37 Chloride 87.4 mmol/L (98-107) L 08/28/18 02:37 Carbon Dioxide 30 mmol/L (22-30) 08/28/18 02:37 Anion Gap 15 mmol/L 08/28/18 02:37 BUN 48 mg/dL (9-20) H 08/28/18 02:37 Creatinine 2.7 mg/dL (0.8-1.5) H 08/28/18 02:37 Estimated GFR 24 ml/min 08/28/18 02:37 BUN/Creatinine Ratio 18 % 08/28/18 02:37 Glucose 364 mg/dL (75-100) H 08/28/18 02:37 POC Glucose 342 (70-105) H 08/28/18 16:14 Hemoglobin A1c 8.7 % (4-6) H 08/26/18 04:58 Calcium 8.3 mg/dL (8.4-10.2) L 08/28/18 02:37 Magnesium 2.00 mg/dL (1.7-2.3) 08/25/18 16:49 Total Creatine Kinase 116 units/L (55-170) 08/25/18 16:49 Troponin T 0.080 ng/mL (0.00-0.029) H 08/25/18 16:49 C-Reactive Protein 17.50 mg/dL (0.00-1.30) H 08/27/18 11:11 Triglycerides 121 mg/dL (2-149) 08/25/18 16:49 Cholesterol 105 mg/dL (50-199) 08/25/18 16:49 LDL Cholesterol Direct 58 mg/dL (50-130) 08/25/18 16:49 HDL Cholesterol 31 mg/dL (40-59) L 08/25/18 16:49 Cholesterol/HDL Ratio 3.38 % 08/25/18 16:49 Urine Color Yellow (Yellow) 08/26/18 12:55 Urine Turbidity Clear (Clear) 08/26/18 12:55 Urine pH 5.0 (5.0-7.0) 08/26/18 12:55 Ur Specific [place] 1.009 (1.003-1.030) 08/26/18 12:55 Urine Protein 30 mg/dl mg/dL (Negative) 08/26/18 12:55 Urine Glucose (UA) 50 mg/dL (Negative) 08/26/18 12:55 Urine Ketones Tr mg/dL (Negative) 08/26/18 12:55 Urine Blood Mod (Negative) 08/26/18 12:55 Urine Nitrite Neg (Negative) 08/26/18 12:55 Urine Bilirubin Neg (Negative) 08/26/18 12:55 Urine Urobilinogen < 2.0 mg/dL (<2.0) 08/26/18 12:55 Ur Leukocyte Esterase Neg (Negative) 08/26/18 12:55 Urine WBC (Auto) 4.0 /HPF (0.0-6.0) 08/26/18 12:55 Urine RBC (Auto) 7.0 /HPF (0.0-6.0) 08/26/18 12:55 U Epithel Cells (Auto) 1.0 /HPF (0-13.0) 08/26/18 12:55 Urine Mucus Few /HPF 08/26/18 12:55 Random Vancomycin 15.5 ug/mL (0-40.0) 08/27/18 04:03 Nutrition/Malnutrition Assess - Dietary Evaluation Nutrition/Malnutrition Findings: Nutrition Notes Start: 08/26/18 13:18 Freq: Status: Active Protocol: Document 08/26/18 13:19 LP (Rec: 08/26/18 13:25 LP [id number]) Nutrition Notes Need for Assessment generated from: stone splitter Initial or Follow up Assessment Current Diagnoses Diabetes Hypertension Heart Failure Other Pertinent Diagnosis left foot wound Current Diet No diet Labs/Tests A1c 8.7 BUN 35 Cr 2.2 Medications Lasix Coumadin Height 5 ft 9 in Weight 108.862 kg [place] Body Weight (lbs) 160.0 BMI 35.4 Subjective/Other Information Screen for skin risk. Pt sleeping at time of visit. states not eating well SECOND OFFICER and now. Pt blood sugars at home fluctuate. Pt would not like a supplement. Food preferences noted. Burn Absent Trauma Absent #1 Nutrition Diagnoses Inadequate oral intake Etiology decreased appetite As Evidenced by Signs and Symptoms Pt not eating well SECOND OFFICER and currently NPO Is patient on ventilator? No Is Patient Ambulatory and/or Out of Bed No REE-([facility]-confined to bed) 2218.116 Kcal/Kg value to use for calculation 16 Approximate Energy Requirements Using 1742 kcal/Kg Calculation Used for Recommendations Kcal/kg Additional Notes Protein needs are 86g (0.8g/kg ) Fluid needs are 1ml/kcal Nutrition Intervention Change Diet Order: Advannce diet to cardiac/ consistent CHO Goal #1 Advance diet Anticipated Discharge Needs: Cardiac consistent CHO Follow-Up By: 08/29/18 Additional Comments Follow for intakes
[2018-08-28] MEDS: PRAVACHOL PO SCH (22:08)
[2018-08-28] MEDS: FLOMAX PO SCH (22:10)
[2018-08-29] MEDS ORDERED: ULTRAM PO ONE (05:38)
[2018-08-29 05:49] LABS: Basophils # (Auto) 0.1 K/mm3 (0.0-0.1); Basophils % (Auto) 0.5 % (0.0-1.8); Eosinophils # (Auto) 0.3 K/mm3 (0.0-0.4); Hematocrit 28.6 % (35.5-45.6); Lymphocytes # (Auto) 0.9 K/mm3 (1.2-5.4); Lymphocytes % (Auto) 6.9 % (13.4-35.0); Mean Corpuscular HGB Conc 32 % (32-34); Mean Corpuscular Volume 80 fl (84-94); Monocytes # (Auto) 1.2 K/mm3 (0.0-0.8); Monocytes % (Auto) 8.6 % (0.0-7.3); Platelet Count 344 K/mm3 (140-440); Red Blood Count 3.59 M/mm3 (3.65-5.03)
[2018-08-29 05:52] LABS: INR 1.77 (0.87-1.13)
[2018-08-29 06:07] LABS: Calcium 8.3 mg/dL (8.4-10.2)
[2018-08-29 06:21] LABS: Iron 18 ug/dL (49-181)
[2018-08-29 07:12] LABS: Total Iron Binding Capacity 209 mcg/dL (250-450)
[2018-08-29] MEDS: HumuLIN R SUB-Q SCH ×3 (08:21→17:00)
[2018-08-29] MEDS: HumaLOG SUB-Q SCH ×4 (08:21→21:58)
--- NOTE | 2018-08-29 08:26 | Progress Note ---
Assessment and Plan Imagin08/25/2018 Chest: mild congestive failure verses less likely infectious interstitial infiltrates. No definite effusion 08/25/2018 Foot xray: Possible nondisplaced fracture of the left 2nd toe middle phalanx. Globally osteopenic bones in the foot with poor visualization of the tarsals. 08/25/2018: Tibia/Fibula x-ray: Degenerative arthritis left ankle. No definite fracture or dislocation left tibia or fibula Cultures: 08/27/2018 Left Foot: Staph aureus 08/28/2018 Blood: in progress A/P: 66-year-old male with a history of obesity, diabetes, hypertension and atrial fibrillation, admitted with: 1. Sepsis: Improved, leukocytosis continuing. Etiology unclear. large open wound on dorsal aspect of left foot.. +/- diabetic foot ulceration, +/-- cellulitis, Chest xray shows no infiltrates, U/A negative for UTI. New onset fevers. Blood cultures not drawn. Currently being treated with renally dosed cefazolin -ESR- 111 -CRP 17.5 2. Left foot Cellulitis and wound infection : On exam, left foot warm, tender to touch with purulent drainage. + Diabetic neuropathy. Wound cultures positive for Staph aureus. Arterial Doppler ordered. 3. Fevers: Resolved 4. Type 2 Diabetes uncontrolled: tight glycemic control 5. NATALIA/CKD - Status post unilateral nephrectomy. He has a single kidney and has CKD. Start renally dosed cefazolin 6. Great Right Toe/Right Leg wound: - On exam, Right leg wound superficial, no drainage or odor. Great right toe, large ruptured blister, wrapped. Continue wound care. Plan f/u blood cultures f/u Left Foot wound culture Discontinue Cefepime and Linezolid Start cefazolin 2 gms IV Q 12h (crCl 31) f/u Arterial Dopplers continue wound care [facility] M: [phone] O:[phone] Subjective Date of service: 08/29/18 Principal diagnosis: cellulitis; afib; elevated INR Interval history: Patient seen and examined. at bedside. Denies fevers, rashes or SOB. Stated that he was feeling better today. at bedside. Nurses notes, labs, imaging and reports reviewed, discussed with patient and . Objective - Exam Narrative Exam: Constitutional: Awake, alert, conversant Head, Ears, Nose: Normocephalic, atraumatic. External ears, nose normal Eyes: Conjunctivae/corneas clear. No icterus. No ptosis. Neck: Supple, no meningeal signs Oral: dentition food, no thrush . Cardiovascular: S1, S2 normal. Respiratory: Good air entry, clear to auscultation bilaterally GI: Soft, non-tender; bowel sounds normal. No peritoneal signs Musculoskeletal: Right foot edema, bilateral extremity weakness Skin: left foot wound, with purulent drainage, 3rd toe superficial wound, Right great toe ruptured blister, right leg wound superficial Hem/Lymphatic: No palpable cervical or supraclavicular nodes. No lymphangitis Psych: Mood ok. Affect normal Neurological: Awake, oriented to place, self and time - Constitutional Vitals: Vital Signs Temp Pulse Resp BP Pulse Ox 97.5 F L 76 20 123/57 96 08/29/18 07:16 08/29/18 07:16 08/29/18 07:16 08/29/18 07:16 08/29/18 07:28 Temperature -Last 24 Hours Temperature 97.5 F Temperature 98.0 F Temperature 97.2 F Temperature 98.6 F - Labs CBC & Chem 7: 08/29/18 05:11 08/29/18 05:11 Labs: Abnormal lab results 08/28/18 08/28/18 08/28/18 Range/Units 11:22 16:14 21:32 WBC (4.5-11.0) K/mm3 RBC (3.65-5.03) M/mm3 Hgb (11.8-15.2) gm/dl Hct (35.5-45.6) % MCV (84-94) fl MCH (28-32) pg RDW (13.2-15.2) % Lymph % (Auto) (13.4-35.0) % [place] % (Auto) (0.0-7.3) % Lymph # (1.2-5.4) K/mm3 [place] # (0.0-0.8) K/mm3 Seg Neutrophils % (40.0-70.0) % Seg Neutrophils # (1.8-7.7) K/mm3 PT (12.2-14.9) Sec. INR (0.87-1.13) Sodium (137-145) mmol/L Potassium (3.6-5.0) mmol/L Chloride (98-107) mmol/L BUN (9-20) mg/dL Creatinine (0.8-1.5) mg/dL Glucose (75-100) mg/dL POC Glucose 362 H 342 H 249 H (70-105) Calcium (8.4-10.2) mg/dL Iron (49-181) ug/dL TIBC (250-450) mcg/dL 08/29/18 08/29/18 08/29/18 Range/Units 05:11 05:11 05:11 WBC 13.8 H (4.5-11.0) K/mm3 RBC 3.59 L (3.65-5.03) M/mm3 Hgb 9.0 L (11.8-15.2) gm/dl Hct 28.6 L (35.5-45.6) % MCV 80 L (84-94) fl MCH 25 L (28-32) pg RDW 20.0 H (13.2-15.2) % Lymph % (Auto) 6.9 L (13.4-35.0) % [place] % (Auto) 8.6 H (0.0-7.3) % Lymph # 0.9 L (1.2-5.4) K/mm3 [place] # 1.2 H (0.0-0.8) K/mm3 Seg Neutrophils % 82.0 H (40.0-70.0) % Seg Neutrophils # 11.3 H (1.8-7.7) K/mm3 PT 21.0 H (12.2-14.9) Sec. INR 1.77 H (0.87-1.13) Sodium 131 L (137-145) mmol/L Potassium 3.1 L (3.6-5.0) mmol/L Chloride 87.5 L (98-107) mmol/L BUN 53 H (9-20) mg/dL Creatinine 2.9 H (0.8-1.5) mg/dL Glucose 288 H (75-100) mg/dL POC Glucose (70-105) Calcium 8.3 L (8.4-10.2) mg/dL Iron (49-181) ug/dL TIBC (250-450) mcg/dL 08/29/18 08/29/18 Range/Units 05:11 07:14 WBC (4.5-11.0) K/mm3 RBC (3.65-5.03) M/mm3 Hgb (11.8-15.2) gm/dl Hct (35.5-45.6) % MCV (84-94) fl MCH (28-32) pg RDW (13.2-15.2) % Lymph % (Auto) (13.4-35.0) % [place] % (Auto) (0.0-7.3) % Lymph # (1.2-5.4) K/mm3 [place] # (0.0-0.8) K/mm3 Seg Neutrophils % (40.0-70.0) % Seg Neutrophils # (1.8-7.7) K/mm3 PT (12.2-14.9) Sec. INR (0.87-1.13) Sodium (137-145) mmol/L Potassium (3.6-5.0) mmol/L Chloride (98-107) mmol/L BUN (9-20) mg/dL Creatinine (0.8-1.5) mg/dL Glucose (75-100) mg/dL POC Glucose 272 H (70-105) Calcium (8.4-10.2) mg/dL Iron 18 L (49-181) ug/dL TIBC 209 L (250-450) mcg/dL
--- NOTE | 2018-08-29 09:00 | Progress Note ---
Assessment and Plan Impression * Chronic kidney disease * Sepsis * Left foot ulcer * Fluid overload * History of renal cell CA. Status post unilateral nephrectomy * Hypertension * Diabetes Recommendations * Serum creatinine slowly rising. will stop diuretics * Volume overload seems to have resolved. * IV antibiotic and culture as per primary team * Avoid nephrotoxins * Monitor fluid status and electrolytes closely * ID consult appreciated * Check an ultrasound of his kidneys as well as PVR Subjective Date of service: 08/29/18 Principal diagnosis: cellulitis; afib; elevated INR Interval history: resting well in bed today Objective - Exam Narrative Exam: General appearance: well-developed, well-nourished, appears stated age EENT: PERRL, mucous membranes moist Neck: no JVD, no thyromegaly, no carotid bruit, supple Respiratory: Present: Clear to Ascultation Cardiology: regular, normal heart rate Gastrointestinal: normal, normoactive bowel sounds Integumentary: other (no edema. Wrinkling of skin noted. Ulceration noted in the dorsum of his left foot) - Vital Signs Vital signs: Vital Signs - 12hr 08/28/18 08/28/18 08/28/18 21:45 22:00 22:08 Temperature Pulse Rate 93 H Respiratory 20 Rate Blood Pressure 142/47 O2 Sat by Pulse 93 93 Oximetry 08/29/18 08/29/18 08/29/18 02:22 07:16 07:28 Temperature 98.0 F 97.5 F L Pulse Rate 88 76 Respiratory 20 20 Rate Blood Pressure 109/44 123/57 O2 Sat by Pulse 93 94 96 Oximetry - Lab 08/29/18 05:11 08/29/18 05:11 Most recent lab results Calcium 8.3 mg/dL (8.4-10.2) L 08/29/18 05:11 Magnesium 2.00 mg/dL (1.7-2.3) 08/25/18 16:49 Medications & Allergies - Medications Allergies/Adverse Reactions: Allergies No Known Allergies Allergy (Unverified 08/25/18 16:05) Home Medications: Home Medications Medication Instructions Recorded Confirmed Last Taken Type Bethanechol 25 mg PO BID 08/25/18 08/26/18 08/24/18 12:00 History Digoxin [Lanoxin] 0.125 mg PO DAILY 08/25/18 08/25/18 08/25/18 History Finasteride [Proscar] 5 mg PO QDAY 08/25/18 08/25/18 08/25/18 History Furosemide [Lasix TAB] 40 mg PO BID 08/25/18 08/25/18 08/25/18 History Insulin Regular,Human U-500(Nf 90 - 110 units SUB-Q TID 08/25/18 08/25/18 08/25/18 History [HumuLIN R] Metoprolol [Lopressor TAB] 75 mg PO BID 08/25/18 08/25/18 08/25/18 History Pravastatin [Pravachol] 80 mg PO QHS 08/25/18 08/25/18 08/24/18 History Tamsulosin HCl [Flomax] 0.8 mg PO HS 08/25/18 08/25/18 08/24/18 History Warfarin [Coumadin] 3.75 mg PO QDAY 08/25/18 08/25/18 08/24/18 History cephALEXin [Keflex] 500 mg PO Q12HR 08/25/18 08/25/18 08/25/18 History metOLazone [Metolazone] 2.5 mg PO QDAY 08/25/18 08/25/18 08/25/18 History Active Medications: Generic Name Dose Route Start Last Admin Trade Name Freq PRN Reason Stop Dose Admin Bethanechol Chloride 25 mg 08/26/18 10:00 08/28/18 22:08 Urecholine PO 25 mg BID JOAN Administration Digoxin 0.125 mg 08/26/18 10:00 08/28/18 09:06 Lanoxin PO 0.125 mg DAILY JOAN Administration Finasteride 5 mg 08/26/18 10:00 08/28/18 09:08 Proscar PO 5 mg QDAY JOAN Administration Furosemide 40 mg 08/26/18 10:00 08/28/18 09:05 Lasix PO 40 mg QDAY JOAN Administration Cefepime HCl 1 gm in 100 mls @ 200 mls/hr 08/27/18 15:00 08/28/18 22:13 Maxipime/Ns 1 Gm/100 Ml IV 200 mls/hr Q12HR JOAN Administration Protocol Linezolid 600 mg in 300 mls @ 300 mls/hr 08/27/18 15:00 08/28/18 22:12 Zyvox 600mg/300ml IV 300 mls/hr Q12HR JOAN Administration Protocol Insulin Human Lispro 0 unit 08/26/18 07:30 08/29/18 08:21 Humalog SUB-Q 6 unit ACHS JOAN Administration Protocol Insulin Human Regular 40 units 08/28/18 12:30 08/29/18 08:21 Humulin R SUB-Q 40 units AC JOAN Administration Megestrol Acetate 400 mg 08/27/18 14:00 08/28/18 09:13 Megace PO Not Given QDAY JOAN Metoprolol Tartrate 75 mg 08/26/18 10:00 08/28/18 22:08 Lopressor PO 75 mg BID JOAN Administration Pantoprazole Sodium 40 mg 08/28/18 11:00 08/28/18 10:51 Protonix IV 40 mg QDAY JOAN Administration Pravastatin Sodium 80 mg 08/26/18 22:00 08/28/18 22:08 Pravachol PO 80 mg QHS JOAN Administration Tamsulosin HCl 0.8 mg 08/26/18 22:00 08/28/18 22:10 Flomax PO 0.8 mg HS JOAN Administration
[2018-08-29] MEDS: MAXIPIME/NS 1 GM/100 ML 1 GM/100 ML BAG IV SCH (09:48)
[2018-08-29] MEDS: URECHOLINE PO SCH ×2 (09:53→22:04)
[2018-08-29] MEDS: LANOXIN PO SCH (09:54)
[2018-08-29] MEDS: MEGACE PO SCH ×2 (09:57→10:02)
[2018-08-29] MEDS: PROSCAR PO SCH (09:58)
[2018-08-29] MEDS: PROTONIX IV SCH (09:59)
[2018-08-29] MEDS: LOPRESSOR PO SCH ×2 (09:59→22:01)
[2018-08-29] MEDS: ZYVOX 600MG/300ML 600 MG/300 ML BAG IV SCH (10:26)
--- NOTE | 2018-08-29 11:09 | Progress Note ---
Assessment and Plan Assessment and plan: Sepsis secondary to cellulitis of the lower extremities - sepsis evidenced with tachycardia and leukocytosis - Cont. IV abx per ID, f/u blood cultures, f/u Left Foot wound culture - Continue Cefepime 1 gm q 12 Hours - Continue Linezolid IV 600 BID - If clinically stable will switch to PO Linezolid tomorrow per ID - f/u Arterial Dopplers--Dr. Rojas consulted - wound culture grew s.aureus - Wound care following - sed rate 111 A. fib - continue metoprolol - Coumadin is held for supratherapeutic INR, s/p viatmin k History of CVA - Mild residual right-sided weakness - Continue supportive care Congestive heart failure - Patient is euvolemic - continue current medication regimen Anemia - FOBT is positive and GI consulted, No procedure needed for now - Correct INR DM with hyperglycemia - On novolin R NATALIA/CKD - Nephrology is following. Status post unilateral nephrectomy. He has a single kidney and has CKD Disposition - Continue inpatient care History Interval history: No new issues overnight Hospitalist Physical - Constitutional Vitals: Temp Pulse Resp BP Pulse Ox 97.5 F L 69 20 111/49 95 08/29/18 07:16 08/29/18 09:57 08/29/18 07:16 08/29/18 09:57 08/29/18 09:57 General appearance: Present: no acute distress - EENT Eyes: Present: PERRL, EOM intact ENT: hearing intact, clear oral mucosa, dentition normal - Neck Neck: Present: supple, normal ROM - Respiratory Respiratory effort: normal Respiratory: bilateral: CTA - Cardiovascular Rhythm: regular Heart Sounds: Present: S1 & S2. Absent: gallop, rub - Extremities Extremities: no ischemia, No edema, Full ROM - Abdominal General gastrointestinal: soft, non-tender, non-distended, normal bowel sounds - Integumentary Integumentary: Present: clear, warm, dry - Neurologic Neurologic: CNII-XII intact, moves all extremities Results - Labs CBC & Chem 7: 08/29/18 05:11 08/29/18 05:11 Labs: Laboratory Last Values WBC 13.8 K/mm3 (4.5-11.0) H 08/29/18 05:11 RBC 3.59 M/mm3 (3.65-5.03) L 08/29/18 05:11 Hgb 9.0 gm/dl (11.8-15.2) L 08/29/18 05:11 Hct 28.6 % (35.5-45.6) L 08/29/18 05:11 MCV 80 fl (84-94) L 08/29/18 05:11 MCH 25 pg (28-32) L 08/29/18 05:11 MCHC 32 % (32-34) 08/29/18 05:11 RDW 20.0 % (13.2-15.2) H 08/29/18 05:11 Plt Count 344 K/mm3 (140-440) 08/29/18 05:11 Lymph % (Auto) 6.9 % (13.4-35.0) L 08/29/18 05:11 [place] % (Auto) 8.6 % (0.0-7.3) H 08/29/18 05:11 Eos % (Auto) 2.0 % (0.0-4.3) 08/29/18 05:11 Baso % (Auto) 0.5 % (0.0-1.8) 08/29/18 05:11 Lymph # 0.9 K/mm3 (1.2-5.4) L 08/29/18 05:11 [place] # 1.2 K/mm3 (0.0-0.8) H 08/29/18 05:11 Eos # 0.3 K/mm3 (0.0-0.4) 08/29/18 05:11 Baso # 0.1 K/mm3 (0.0-0.1) 08/29/18 05:11 Seg Neutrophils % 82.0 % (40.0-70.0) H 08/29/18 05:11 Seg Neutrophils # 11.3 K/mm3 (1.8-7.7) H 08/29/18 05:11 ESR 111 mm/Hr (0-20) 08/27/18 11:11 PT 21.0 Sec. (12.2-14.9) H 08/29/18 05:11 INR 1.77 (0.87-1.13) H 08/29/18 05:11 APTT 43.1 Sec. (24.2-36.6) H 08/25/18 16:49 Sodium 131 mmol/L (137-145) L 08/29/18 05:11 Potassium 3.1 mmol/L (3.6-5.0) L 08/29/18 05:11 Chloride 87.5 mmol/L (98-107) L 08/29/18 05:11 Carbon Dioxide 27 mmol/L (22-30) 08/29/18 05:11 Anion Gap 20 mmol/L 08/29/18 05:11 BUN 53 mg/dL (9-20) H 08/29/18 05:11 Creatinine 2.9 mg/dL (0.8-1.5) H 08/29/18 05:11 Estimated GFR 22 ml/min 08/29/18 05:11 BUN/Creatinine Ratio 18 % 08/29/18 05:11 Glucose 288 mg/dL (75-100) H 08/29/18 05:11 POC Glucose 272 (70-105) H 08/29/18 07:14 Hemoglobin A1c 8.7 % (4-6) H 08/26/18 04:58 Calcium 8.3 mg/dL (8.4-10.2) L 08/29/18 05:11 Magnesium 2.00 mg/dL (1.7-2.3) 08/25/18 16:49 Iron 18 ug/dL (49-181) L 08/29/18 05:11 TIBC 209 mcg/dL (250-450) L 08/29/18 05:11 Ferritin 264.4 ng/mL (13.0-400.0) 08/29/18 05:11 Total Creatine Kinase 116 units/L (55-170) 08/25/18 16:49 Troponin T 0.080 ng/mL (0.00-0.029) H 08/25/18 16:49 C-Reactive Protein 17.50 mg/dL (0.00-1.30) H 08/27/18 11:11 Triglycerides 121 mg/dL (2-149) 08/25/18 16:49 Cholesterol 105 mg/dL (50-199) 08/25/18 16:49 LDL Cholesterol Direct 58 mg/dL (50-130) 08/25/18 16:49 HDL Cholesterol 31 mg/dL (40-59) L 08/25/18 16:49 Cholesterol/HDL Ratio 3.38 % 08/25/18 16:49 Urine Color Yellow (Yellow) 08/26/18 12:55 Urine Turbidity Clear (Clear) 08/26/18 12:55 Urine pH 5.0 (5.0-7.0) 08/26/18 12:55 Ur Specific [place] 1.009 (1.003-1.030) 08/26/18 12:55 Urine Protein 30 mg/dl mg/dL (Negative) 08/26/18 12:55 Urine Glucose (UA) 50 mg/dL (Negative) 08/26/18 12:55 Urine Ketones Tr mg/dL (Negative) 08/26/18 12:55 Urine Blood Mod (Negative) 08/26/18 12:55 Urine Nitrite Neg (Negative) 08/26/18 12:55 Urine Bilirubin Neg (Negative) 08/26/18 12:55 Urine Urobilinogen < 2.0 mg/dL (<2.0) 08/26/18 12:55 Ur Leukocyte Esterase Neg (Negative) 08/26/18 12:55 Urine WBC (Auto) 4.0 /HPF (0.0-6.0) 08/26/18 12:55 Urine RBC (Auto) 7.0 /HPF (0.0-6.0) 08/26/18 12:55 U Epithel Cells (Auto) 1.0 /HPF (0-13.0) 08/26/18 12:55 Urine Mucus Few /HPF 08/26/18 12:55 Random Vancomycin 15.5 ug/mL (0-40.0) 08/27/18 04:03 Nutrition/Malnutrition Assess - Dietary Evaluation Nutrition/Malnutrition Findings: Nutrition Notes Start: 08/26/18 13:18 Freq: Status: Active Protocol: Document 08/26/18 13:19 LP (Rec: 08/26/18 13:25 LP [id number]) Nutrition Notes Need for Assessment generated from: time study statistician Initial or Follow up Assessment Current Diagnoses Diabetes Hypertension Heart Failure Other Pertinent Diagnosis left foot wound Current Diet No diet Labs/Tests A1c 8.7 BUN 35 Cr 2.2 Medications Lasix Coumadin Height 5 ft 9 in Weight 108.862 kg [place] Body Weight (lbs) 160.0 BMI 35.4 Subjective/Other Information Screen for skin risk. Pt sleeping at time of visit. states not eating well ENTERTAINMENT DIRECTOR and now. Pt blood sugars at home fluctuate. Pt would not like a supplement. Food preferences noted. Burn Absent Trauma Absent #1 Nutrition Diagnoses Inadequate oral intake Etiology decreased appetite As Evidenced by Signs and Symptoms Pt not eating well ENTERTAINMENT DIRECTOR and currently NPO Is patient on ventilator? No Is Patient Ambulatory and/or Out of Bed No REE-([facility]-confined to bed) 2218.116 Kcal/Kg value to use for calculation 16 Approximate Energy Requirements Using 1742 kcal/Kg Calculation Used for Recommendations Kcal/kg Additional Notes Protein needs are 86g (0.8g/kg ) Fluid needs are 1ml/kcal Nutrition Intervention Change Diet Order: Advannce diet to cardiac/ consistent CHO Goal #1 Advance diet Anticipated Discharge Needs: Cardiac consistent CHO Follow-Up By: 08/29/18 Additional Comments Follow for intakes
--- NOTE | 2018-08-29 12:05 | Progress Note ---
<MITCHELLDONGErika PRAJAPATI - Last Filed: 08/29/18 12:04> Assessment and Plan Sepsis/cellulitis of the lower extremities ID consult appreciated Wound care consult A. fib Supratherapeutic INR - suspect 2/2 concurrent antibiotic use; INR 1.77 this AM following vitamin K+ Continue metoprolol 75 BID Initiate remote telemetry Anemia Stool occult positive Per GI, no plans for scope at this time given no clinical evidence of significant GI bleeding - will consider endoscopic evaluation based on clinical course once INR < 1.5 ? NATALIA on CKD Nephrology following Echocardiogram 04/05/2018: Ejection fraction 52%, no significant valvular abnormalities noted Myocardial perfusion scan 08/04/2017: This is an abnormal myocardial perfusion imaging study demonstrated a mixture scar plus ischemia in the basal inferior, mid inferior and lateral myocardial sharma. Patient appears to have sd- infarction ischemia. Previous study also showed inferior mostly fixed defect. Ejection fraction 69% Currently stable cardiac status. Cont present cardiac management. The patient has been seen in conjunction with Dr. Sky who agrees with the assessment and plan of care. Subjective Date of service: 08/29/18 Principal diagnosis: cellulitis; afib; elevated INR Interval history: pt resting in bed, no current cardiac complaints. at bedside. Objective Last Vital Signs Temp 97.5 F L 08/29/18 07:16 Pulse 69 08/29/18 09:57 Resp 20 08/29/18 10:00 BP 111/49 08/29/18 09:57 Pulse Ox 96 08/29/18 10:00 - Physical Examination General: No Apparent Distress HEENT: Positive: PERRL Neck: Positive: neck supple, trachea midline Cardiac: Positive: irregularly irregular, S1/S2 Lungs: Positive: Decreased Breath Sounds Abdomen: Positive: Soft, Active Bowel Sounds Skin: Positive: Rash, Other (BLE wounds, cellulitis) Extremities: Present: edema, warm - Labs and Meds Coagulation 08/29/18 Range/Units 05:11 PT 21.0 H (12.2-14.9) Sec. INR 1.77 H (0.87-1.13) CBC 08/29/18 Range/Units 05:11 WBC 13.8 H (4.5-11.0) K/mm3 RBC 3.59 L (3.65-5.03) M/mm3 Hgb 9.0 L (11.8-15.2) gm/dl Hct 28.6 L (35.5-45.6) % Plt Count 344 (140-440) K/mm3 Lymph # 0.9 L (1.2-5.4) K/mm3 [place] # 1.2 H (0.0-0.8) K/mm3 Eos # 0.3 (0.0-0.4) K/mm3 Baso # 0.1 (0.0-0.1) K/mm3 Comprehensive Metabolic Panel 08/29/18 Range/Units 05:11 Sodium 131 L (137-145) mmol/L Potassium 3.1 L (3.6-5.0) mmol/L Chloride 87.5 L (98-107) mmol/L Carbon Dioxide 27 (22-30) mmol/L BUN 53 H (9-20) mg/dL Creatinine 2.9 H (0.8-1.5) mg/dL Glucose 288 H (75-100) mg/dL Calcium 8.3 L (8.4-10.2) mg/dL <ROSE HIGHTOWER - Last Filed: 08/29/18 12:18> Objective Vital Signs Temp Pulse Resp BP Pulse Ox 08/29/18 10:00 20 96 08/29/18 09:57 69 111/49 95 08/29/18 09:54 76 123/57 08/29/18 07:28 96 08/29/18 07:16 97.5 F L 76 20 123/57 94 08/29/18 02:22 98.0 F 88 20 109/44 93 08/28/18 22:08 93 H 142/47 08/28/18 22:00 20 93 08/28/18 21:45 93 08/28/18 19:50 97.2 F L 93 H 18 142/47 95 08/28/18 14:17 98.6 F 87 20 126/58 94 - Labs and Meds Coagulation 08/29/18 Range/Units 05:11 PT 21.0 H (12.2-14.9) Sec. INR 1.77 H (0.87-1.13) CBC 08/29/18 Range/Units 05:11 WBC 13.8 H (4.5-11.0) K/mm3 RBC 3.59 L (3.65-5.03) M/mm3 Hgb 9.0 L (11.8-15.2) gm/dl Hct 28.6 L (35.5-45.6) % Plt Count 344 (140-440) K/mm3 Lymph # 0.9 L (1.2-5.4) K/mm3 [place] # 1.2 H (0.0-0.8) K/mm3 Eos # 0.3 (0.0-0.4) K/mm3 Baso # 0.1 (0.0-0.1) K/mm3 Comprehensive Metabolic Panel 08/29/18 Range/Units 05:11 Sodium 131 L (137-145) mmol/L Potassium 3.1 L (3.6-5.0) mmol/L Chloride 87.5 L (98-107) mmol/L Carbon Dioxide 27 (22-30) mmol/L BUN 53 H (9-20) mg/dL Creatinine 2.9 H (0.8-1.5) mg/dL Glucose 288 H (75-100) mg/dL Calcium 8.3 L (8.4-10.2) mg/dL
--- NOTE | 2018-08-29 12:46 | Gastroenterology Progress Note ---
Addendum entered and electronically signed by JULIAN URIOSTEGUI MD 08/29/18 18:32: I have personally interviewed and examined the patient. I agree with the above A/P. The patient has had prior endoscopic w/u, and declines further intervention by us at present. I am OK with resumption of warfarin cautiously, with close monitoring of CBC. Will sign off at present; please call if needed. Original Note: Assessment and Plan 1.anemia-chronic -stool occult positive -iron 18, TIBC 209, ferritin 209 -H/H 9.0/28.6-trending up -INR 1.77 (coumadin on hold) -continue to monitor H/H and transfuse as needed -no active signs of bleeding- HD stable -EGD 2014 showed hiatal hernia, small M-W tear, gastritis, and duodenitis -last colonoscopy in 2010 with negative results per pt/family report (records unavailable) -etiology unclear- likely multifactorial (oozing blood from foot wound) -discussed the option of an endoscopic evaluation with EGD/colonoscopy with pt/ for further evaluation of anemia (r/o malignancy). After consideration, patient wishes to NOT proceed with procedures -continue PPI, MVI, and supportive care -okay to resume anticoagulation per cardiology recommendations- monitor and hold for active signs of bleeding -continue supportive care -recommend follow up in clinic with primary GI (Dr. Delacruz) in 2 weeks upon discharge -no further recommendations at this time -will sign off, please call if needed Subjective Date of service: 08/29/18 Principal diagnosis: anemia Interval history: No active signs of bleeding overnight or this am. Denies abd pain or N/V. Tolerating diet. Objective - Constitutional Vitals: Temp Pulse Resp BP Pulse Ox 97.5 F L 69 20 111/49 96 08/29/18 07:16 08/29/18 09:57 08/29/18 10:00 08/29/18 09:57 08/29/18 10:00 General appearance: no acute distress, obese - Respiratory Respiratory: bilateral: diminished - Cardiovascular Rhythm: other (irregular) - Gastrointestinal General gastrointestinal: Present: soft, non-tender, non-distended, normal bowel sounds - Musculoskeletal Musculoskeletal: other (BLE wounds) - Neurologic Neurological: alert and oriented x3 - Labs CBC & Chem 7: 08/29/18 05:11 08/29/18 05:11 Labs: Laboratory Results - last 24 hr 08/28/18 08/28/18 08/29/18 16:14 21:32 05:11 WBC RBC Hgb Hct MCV MCH MCHC RDW Plt Count Lymph % (Auto) [place] % (Auto) Eos % (Auto) Baso % (Auto) Lymph # [place] # Eos # Baso # Seg Neutrophils % Seg Neutrophils # PT 21.0 H INR 1.77 H Sodium Potassium Chloride Carbon Dioxide Anion Gap BUN Creatinine Estimated GFR BUN/Creatinine Ratio Glucose POC Glucose 342 H 249 H Calcium Iron TIBC Ferritin 08/29/18 08/29/18 08/29/18 05:11 05:11 05:11 WBC 13.8 H RBC 3.59 L Hgb 9.0 L Hct 28.6 L MCV 80 L MCH 25 L MCHC 32 RDW 20.0 H Plt Count 344 Lymph % (Auto) 6.9 L [place] % (Auto) 8.6 H Eos % (Auto) 2.0 Baso % (Auto) 0.5 Lymph # 0.9 L [place] # 1.2 H Eos # 0.3 Baso # 0.1 Seg Neutrophils % 82.0 H Seg Neutrophils # 11.3 H PT INR Sodium 131 L Potassium 3.1 L Chloride 87.5 L Carbon Dioxide 27 Anion Gap 20 BUN 53 H Creatinine 2.9 H Estimated GFR 22 BUN/Creatinine Ratio 18 Glucose 288 H POC Glucose Calcium 8.3 L Iron 18 L TIBC 209 L Ferritin 08/29/18 08/29/18 08/29/18 05:11 07:14 11:51 WBC RBC Hgb Hct MCV MCH MCHC RDW Plt Count Lymph % (Auto) [place] % (Auto) Eos % (Auto) Baso % (Auto) Lymph # [place] # Eos # Baso # Seg Neutrophils % Seg Neutrophils # PT INR Sodium Potassium Chloride Carbon Dioxide Anion Gap BUN Creatinine Estimated GFR BUN/Creatinine Ratio Glucose POC Glucose 272 H 300 H Calcium Iron TIBC Ferritin 264.4
[2018-08-29] MEDS ORDERED: NACL 0.9% 1000 ML 1,000 ML with KCL 20 MEQ IV SCH (14:00)
[2018-08-29] MEDS: NS/KCL 20MEQ 20 MEQ/1,000 ML BAG IV SCH (15:40)
--- NOTE | 2018-08-29 17:15 | Consultation ---
History of Present Illness - Reason for Consult Consult date: 08/29/18 - History of Present Illness He is a 67-year-old male admitted through the emergency department for generalized weakness recurrent falls and ulcerations to bilateral lower extremities. He has a history of diabetes and chronic kidney disease stage III and atrial fibrillation. He reports that the wounds occurred spontaneously he denies any injuries to the feet or legs. His spouse reports that the legs became severely swollen and that is when the ulcerations occurred. Due to his diabetes and possible arterial disease of vascular surgery consult was requested to evaluate. Past History Past Medical History: atrial fib (Chronic kidney stage 3), diabetes, other (as per HPI) Past Surgical History: Other (unilateral nephrectomy) Social history: . denies: smoking, alcohol abuse Family history: no significant family history Medications and Allergies Allergies Allergy/AdvReac Type Severity Reaction Status Date / Time No Known Allergies Allergy Unverified 08/25/18 16:05 Home Medications Medication Instructions Recorded Confirmed Last Taken Type Bethanechol 25 mg PO BID 08/25/18 08/26/18 08/24/18 12:00 History RX: Furosemide [Lasix TAB] 40 mg PO BID 08/25/18 08/25/18 08/25/18 History RX: Insulin Regular,Human U-500(Nf 90 - 110 units SUB-Q TID 08/25/18 08/25/18 08/25/18 History [HumuLIN R] RX: metOLazone [Metolazone] 2.5 mg PO QDAY 08/25/18 08/25/18 08/25/18 History RX: Aspirin EC [Aspirin Enteric 81 mg PO QDAY tablet 09/03/18 Unknown Rx Coated TAB] RX: Bethanechol [Urecholine] 25 mg PO BID tablet 09/03/18 Unknown Rx RX: Digoxin [Lanoxin] 0.125 mg PO DAILY tablet 09/03/18 Unknown Rx RX: Finasteride [Proscar] 5 mg PO QDAY tablet 09/03/18 Unknown Rx RX: Insulin Regular, Human 40 units SUB-Q AC units 09/03/18 Unknown Rx [HumuLIN R] RX: Lispro Insulin [Humalog] 0 unit SUB-Q ACHS units 09/03/18 Unknown Rx RX: Megestrol [Megace] 400 mg PO QDAY oral.liqd 09/03/18 Unknown Rx RX: Metoprolol [Lopressor TAB] 75 mg PO BID tablet 09/03/18 Unknown Rx RX: Pantoprazole [Protonix TAB] 40 mg PO DAILY tablet 09/03/18 Unknown Rx RX: Pravastatin [Pravachol] 80 mg PO QHS tablet 09/03/18 Unknown Rx RX: Spironolactone [Aldactone] 25 mg PO QDAY tablet 09/03/18 Unknown Rx RX: Tamsulosin [Flomax] 0.8 mg PO HS capsule 09/03/18 Unknown Rx RX: Warfarin [Coumadin] 4 mg PO DAILY@1700 tablet 09/03/18 Unknown Rx RX: cephALEXin [Keflex] 500 mg PO Q12HR #20 capsule 09/03/18 Unknown Rx Active Meds: Active Medications Bethanechol Chloride (Urecholine) 25 mg PO BID [facility] Last Admin: 08/29/18 09:53 Dose: 25 mg Documented by: Digoxin (Lanoxin) 0.125 mg PO DAILY [facility] Last Admin: 08/29/18 09:54 Dose: 0.125 mg Documented by: Finasteride (Proscar) 5 mg PO QDAY [facility] Last Admin: 08/29/18 09:58 Dose: 5 mg Documented by: Potassium Chloride/Sodium Chloride (Ns/Kcl 20meq) 20 meq in 1,000 mls @ 85 mls/hr IV DIRECT [facility] Cefazolin Sodium 2 gm/ Sodium (Chloride) 100 mls @ 200 mls/hr IV Q12HR [facility] Sodium Chloride (Nacl 0.9% 1000 Ml) 1,000 mls @ 75 mls/hr IV DIRECT [facility] Insulin Human Lispro (Humalog) 0 unit SUB-Q [facility]; Protocol Last Admin: 08/29/18 17:01 Dose: 6 unit Documented by: Insulin Human Regular (Humulin R) 40 units SUB-Q [facility] Last Admin: 08/29/18 17:00 Dose: 40 units Documented by: Megestrol Acetate (Megace) 400 mg PO QDAY [facility] Last Admin: 08/29/18 10:02 Dose: Not Given Documented by: Metoprolol Tartrate (Lopressor) 75 mg PO BID [facility] Last Admin: 08/29/18 09:59 Dose: Not Given Documented by: Pantoprazole Sodium (Protonix) 40 mg IV QDAY [facility] Last Admin: 08/29/18 09:59 Dose: 40 mg Documented by: [facility] Admin: 08/28/18 22:08 Dose: 80 mg Documented by: Tamsulosin HCl (Flomax) 0.8 mg PO [facility] Last Admin: 08/28/18 22:10 Dose: 0.8 mg Documented by: Review of Systems Constitutional: weight gain Cardiovascular: no chest pain, no shortness of breath Musculoskeletal: shooting arm pain (joint pain) Integumentary: foot/leg ulcers Neurological: balance difficulties (falling) Exam - Constitutional Vitals: Temp Pulse Resp BP Pulse Ox 97.8 F 65 20 119/51 97 08/29/18 13:36 08/29/18 13:36 08/29/18 13:36 08/29/18 13:36 08/29/18 13:36 General appearance: Present: obese - Neck Neck: Present: supple, normal ROM - Respiratory Respiratory effort: normal (nonlabored at rest) - Extremities Extremities: no ischemia (bilateral lower extremity wounds present) Peripheral Pulses: abnormal - Abdominal General gastrointestinal: Present: soft (obese) - Musculoskeletal Musculoskeletal: generalized weakness - Psychiatric Psychiatric: intact judgment & insight, cooperative - Neurologic Neurologic: no focal deficits, moves all extremities Results - Labs CBC & Chem 7: 09/04/18 02:49 09/03/18 12:10 Labs: Abnormal lab results 08/28/18 08/29/18 08/29/18 Range/Units 21:32 05:11 05:11 WBC (4.5-11.0) K/mm3 RBC (3.65-5.03) M/mm3 Hgb (11.8-15.2) gm/dl Hct (35.5-45.6) % MCV (84-94) fl MCH (28-32) pg RDW (13.2-15.2) % Lymph % (Auto) (13.4-35.0) % [place] % (Auto) (0.0-7.3) % Lymph # (1.2-5.4) K/mm3 [place] # (0.0-0.8) K/mm3 Seg Neutrophils % (40.0-70.0) % Seg Neutrophils # (1.8-7.7) K/mm3 PT 21.0 H (12.2-14.9) Sec. INR 1.77 H (0.87-1.13) Sodium 131 L (137-145) mmol/L Potassium 3.1 L (3.6-5.0) mmol/L Chloride 87.5 L (98-107) mmol/L BUN 53 H (9-20) mg/dL Creatinine 2.9 H (0.8-1.5) mg/dL Glucose 288 H (75-100) mg/dL POC Glucose 249 H (70-105) Calcium 8.3 L (8.4-10.2) mg/dL Iron (49-181) ug/dL TIBC (250-450) mcg/dL 08/29/18 08/29/18 08/29/18 Range/Units 05:11 05:11 07:14 WBC 13.8 H (4.5-11.0) K/mm3 RBC 3.59 L (3.65-5.03) M/mm3 Hgb 9.0 L (11.8-15.2) gm/dl Hct 28.6 L (35.5-45.6) % MCV 80 L (84-94) fl MCH 25 L (28-32) pg RDW 20.0 H (13.2-15.2) % Lymph % (Auto) 6.9 L (13.4-35.0) % [place] % (Auto) 8.6 H (0.0-7.3) % Lymph # 0.9 L (1.2-5.4) K/mm3 [place] # 1.2 H (0.0-0.8) K/mm3 Seg Neutrophils % 82.0 H (40.0-70.0) % Seg Neutrophils # 11.3 H (1.8-7.7) K/mm3 PT (12.2-14.9) Sec. INR (0.87-1.13) Sodium (137-145) mmol/L Potassium (3.6-5.0) mmol/L Chloride (98-107) mmol/L BUN (9-20) mg/dL Creatinine (0.8-1.5) mg/dL Glucose (75-100) mg/dL POC Glucose 272 H (70-105) Calcium (8.4-10.2) mg/dL Iron 18 L (49-181) ug/dL TIBC 209 L (250-450) mcg/dL 08/29/18 08/29/18 Range/Units 11:51 16:45 WBC (4.5-11.0) K/mm3 RBC (3.65-5.03) M/mm3 Hgb (11.8-15.2) gm/dl Hct (35.5-45.6) % MCV (84-94) fl MCH (28-32) pg RDW (13.2-15.2) % Lymph % (Auto) (13.4-35.0) % [place] % (Auto) (0.0-7.3) % Lymph # (1.2-5.4) K/mm3 [place] # (0.0-0.8) K/mm3 Seg Neutrophils % (40.0-70.0) % Seg Neutrophils # (1.8-7.7) K/mm3 PT (12.2-14.9) Sec. INR (0.87-1.13) Sodium (137-145) mmol/L Potassium (3.6-5.0) mmol/L Chloride (98-107) mmol/L BUN (9-20) mg/dL Creatinine (0.8-1.5) mg/dL Glucose (75-100) mg/dL POC Glucose 300 H 291 H (70-105) Calcium (8.4-10.2) mg/dL Iron (49-181) ug/dL TIBC (250-450) mcg/dL Assessment and Plan Peripheral arterial disease with ulceration: He is diabetic with new nonhealing ulcerations to bilateral lower extremities left worse than the right. Lower extremity arterial duplex shows that he has some iliofemoral disease and also some tibial disease. An angiogram would be necessary to complete a revascu larization. However, he has a history of a unilateral nephrectomy. His creatinine currently is 2.9 and at his initial admission he was suffering from fluid overload. He would require renal hydration slowly over several hours in preparation for angiogram and possible revascularization.
[2018-08-29] MEDS: ceFAZolin 2 GM in NACL 0.9% 100 ML IV SCH (22:00)
[2018-08-29] MEDS: FLOMAX PO SCH (22:00)
[2018-08-29] MEDS: PRAVACHOL PO SCH (22:01)
[2018-08-30] MEDS ORDERED: NACL 0.9% 1000 ML 1,000 ML IV SCH (00:01)
[2018-08-30] MEDS: NS/KCL 20MEQ 20 MEQ/1,000 ML BAG IV SCH (05:10)
[2018-08-30 05:38] LABS: INR 1.36 (0.87-1.13)
[2018-08-30 05:49] LABS: Calcium 8.2 mg/dL (8.4-10.2)
[2018-08-30] MEDS: HumuLIN R SUB-Q SCH ×3 (07:23→16:37)
[2018-08-30] MEDS: HumaLOG SUB-Q SCH ×3 (07:23→16:38)
--- NOTE | 2018-08-30 07:37 | Ultrasound Report ---
FINAL REPORT EXAM: US RENAL BILAT HISTORY: CKD COMPARISONS: None. FINDINGS: Grayscale and color Doppler renal and bladder ultrasound Patient status post left nephrectomy. The right kidney measures 13 cm in length and shows no hydronep hrosis or echogenic shadowing foci to suggest nephrolithiasis. No free fluid in Morison's pouch for a bdominal ascites. No focal abnormality identified in the left renal fossa. The urinary bladder shows volume of approximately 300 milliliters. A postvoid residual could not be recorded as the patient was unable to void after attempting. IMPRESSION: No right hydronephrosis. Patient status post left nephrectomy. Patient unable to void during the exam. Prevoid urinary bladder volume of approximately 300 millilite rs is recorded.
--- NOTE | 2018-08-30 07:39 | Ultrasound Report ---
FINAL REPORT EXAM: US BLADDER RESIDUAL HISTORY: urinary retention COMPARISONS: None. FINDINGS: Grayscale urinary bladder ultrasound The urinary bladder shows volume of approximately 300 milliliters. A postvoid residual could not be r ecorded as the patient was unable to void after attempting. IMPRESSION: Patient unable to void during the exam. Prevoid urinary bladder volume of approximately 300 millilite rs is recorded.
[2018-08-30] MEDS ORDERED: MAGNESIUM SULFATE 2GM/50ML 2 GM/50 ML BAG IV ONE (08:49)
--- NOTE | 2018-08-30 08:53 | Progress Note ---
Assessment and Plan Impression * Chronic kidney disease * Sepsis * Left foot ulcer * Fluid overload * History of renal cell CA. Status post unilateral nephrectomy * Hypertension * Diabetes Recommendations * Serum creatinine slowly improving today. stopped diuretics * Volume overload seems to have resolved. * replete k and mag prn * IV antibiotic and culture as per primary team * Avoid nephrotoxins * Monitor fluid status and electrolytes closely Subjective Date of service: 08/30/18 Principal diagnosis: cellulitis; afib; elevated INR Interval history: resting well in bed today Objective - Exam Narrative Exam: General appearance: well-developed, well-nourished, appears stated age EENT: PERRL, mucous membranes moist Neck: no JVD, no thyromegaly, no carotid bruit, supple Respiratory: Present: Clear to Ascultation Cardiology: regular, normal heart rate Gastrointestinal: normal, normoactive bowel sounds Integumentary: other (no edema. Wrinkling of skin noted. Ulceration noted in the dorsum of his left foot) - Vital Signs Vital signs: Vital Signs - 12hr 08/29/18 08/29/18 08/30/18 22:00 22:01 08:35 Temperature 98.2 F Pulse Rate 76 88 Pulse Rate [ 76 Left Brachial] Respiratory 20 22 Rate Blood Pressure 107/44 131/53 O2 Sat by Pulse 94 94 Oximetry - Lab 08/29/18 05:11 08/30/18 04:52 Most recent lab results Calcium 8.2 mg/dL (8.4-10.2) L 08/30/18 04:52 Magnesium 2.00 mg/dL (1.7-2.3) 08/25/18 16:49 Medications & Allergies - Medications Allergies/Adverse Reactions: Allergies No Known Allergies Allergy (Unverified 08/25/18 16:05) Home Medications: Home Medications Medication Instructions Recorded Confirmed Last Taken Type Bethanechol 25 mg PO BID 08/25/18 08/26/18 08/24/18 12:00 History Digoxin [Lanoxin] 0.125 mg PO DAILY 08/25/18 08/25/18 08/25/18 History Finasteride [Proscar] 5 mg PO QDAY 08/25/18 08/25/18 08/25/18 History Furosemide [Lasix TAB] 40 mg PO BID 08/25/18 08/25/18 08/25/18 History Insulin Regular,Human U-500(Nf 90 - 110 units SUB-Q TID 08/25/18 08/25/18 08/25/18 History [HumuLIN R] Metoprolol [Lopressor TAB] 75 mg PO BID 08/25/18 08/25/18 08/25/18 History Pravastatin [Pravachol] 80 mg PO QHS 08/25/18 08/25/18 08/24/18 History Tamsulosin HCl [Flomax] 0.8 mg PO HS 08/25/18 08/25/18 08/24/18 History Warfarin [Coumadin] 3.75 mg PO QDAY 08/25/18 08/25/18 08/24/18 History cephALEXin [Keflex] 500 mg PO Q12HR 08/25/18 08/25/18 08/25/18 History metOLazone [Metolazone] 2.5 mg PO QDAY 08/25/18 08/25/18 08/25/18 History Active Medications: Generic Name Dose Route Start Last Admin Trade Name Jose Angelq PRN Reason Stop Dose Admin Bethanechol Chloride 25 mg 08/26/18 10:00 08/29/18 22:04 Urecholine PO 25 mg BID JOAN Administration Digoxin 0.125 mg 08/26/18 10:00 08/29/18 09:54 Lanoxin PO 0.125 mg DAILY JOAN Administration Finasteride 5 mg 08/26/18 10:00 08/29/18 09:58 Proscar PO 5 mg QDAY JOAN Administration Potassium Chloride/Sodium Chloride 20 meq in 1,000 mls @ 85 mls/hr 08/29/18 14:00 08/30/18 05:10 Ns/Kcl 20meq IV 85 mls/hr DIRECT JOAN Administration Cefazolin Sodium 2 gm/ Sodium 100 mls @ 200 mls/hr 08/29/18 22:00 08/29/18 22:00 Chloride IV 200 mls/hr Q12HR JOAN Administration Sodium Chloride 1,000 mls @ 75 mls/hr 08/30/18 00:01 Nacl 0.9% 1000 Ml IV DIRECT JOAN Magnesium Sulfate 2 gm in 50 mls @ 25 mls/hr 08/30/18 08:49 Magnesium Sulfate 2gm/50ml IV 08/30/18 10:48 ONCE ONE Insulin Human Lispro 0 unit 08/26/18 07:30 08/30/18 07:23 Humalog SUB-Q 6 unit ACHS JOAN Administration Protocol Insulin Human Regular 40 units 08/28/18 12:30 08/30/18 07:23 Humulin R SUB-Q 40 units AC JOAN Administration Megestrol Acetate 400 mg 08/27/18 14:00 08/29/18 10:02 Megace PO Not Given QDAY JOAN Metoprolol Tartrate 75 mg 08/26/18 10:00 08/29/18 22:01 Lopressor PO Not Given BID JOAN Pantoprazole Sodium 40 mg 08/28/18 11:00 08/29/18 09:59 Protonix IV 40 mg QDAY JOAN Administration Pravastatin Sodium 80 mg 08/26/18 22:00 08/29/18 22:01 Pravachol PO 80 mg QHS JOAN Administration Tamsulosin HCl 0.8 mg 08/26/18 22:00 08/29/18 22:00 Flomax PO 0.8 mg HS JONA Administration
[2018-08-30] MEDS: PROTONIX IV SCH (09:23)
[2018-08-30] MEDS: LANOXIN PO SCH (09:25)
[2018-08-30] MEDS: LOPRESSOR PO SCH (09:26)
[2018-08-30] MEDS: PROSCAR PO SCH (09:29)
[2018-08-30] MEDS: URECHOLINE PO SCH ×2 (09:30→22:41)
[2018-08-30] MEDS: MEGACE PO SCH (09:30)
--- NOTE | 2018-08-30 09:30 | Progress Note ---
Assessment and Plan Assessment and plan: Sepsis secondary to cellulitis of the lower extremities - sepsis evidenced with tachycardia and leukocytosis - Cont. abx per ID, f/u blood cultures, f/u Left Foot wound culture - wound culture grew s.aureus - Wound care following - sed rate 111 PVD Patient with nonhealing ulcerations to bilateral lower extremities left worse than the right. Lower extremity arterial duplex shows that he has some mateusz ofemoral disease and also some tibial disease. An angiogram would be necessary to complete a revascularization. However, he has a history of a unilateral nephrectomy. A. fib - continue metoprolol - Coumadin was held for supratherapeutic INR, s/p viatmin k. - Resume Coumadin per protocol. History of CVA - Mild residual right-sided weakness - Continue supportive care Congestive heart failure - Compensated, Patient is euvolemic - continue current medication regimen Anemia - FOBT is positive and GI consulted, No procedure needed for now - Correct INR DM with hyperglycemia - On novolin R NATALIA/CKD - Nephrology is following. Status post unilateral nephrectomy. He has a single kidney and has CKD Disposition - Continue inpatient care History Interval history: No new issues overnight Hospitalist Physical - Constitutional Vitals: Temp Pulse Resp BP Pulse Ox 98.2 F 88 22 131/53 94 08/30/18 08:35 08/30/18 08:35 08/30/18 08:35 08/30/18 08:35 08/30/18 08:35 General appearance: Present: obese - EENT Eyes: Present: PERRL, EOM intact ENT: hearing intact, clear oral mucosa, dentition normal - Neck Neck: Present: supple, normal ROM - Respiratory Respiratory effort: normal Respiratory: bilateral: CTA - Cardiovascular Rhythm: regular Heart Sounds: Present: S1 & S2. Absent: gallop, rub - Extremities Extremities: no ischemia, No edema, Full ROM - Abdominal General gastrointestinal: soft, non-tender, non-distended, normal bowel sounds - Integumentary Integumentary: Present: clear, warm, dry - Neurologic Neurologic: CNII-XII intact, moves all extremities Results - Labs CBC & Chem 7: 08/29/18 05:11 08/30/18 04:52 Labs: Laboratory Last Values WBC 13.8 K/mm3 (4.5-11.0) H 08/29/18 05:11 RBC 3.59 M/mm3 (3.65-5.03) L 08/29/18 05:11 Hgb 9.0 gm/dl (11.8-15.2) L 08/29/18 05:11 Hct 28.6 % (35.5-45.6) L 08/29/18 05:11 MCV 80 fl (84-94) L 08/29/18 05:11 MCH 25 pg (28-32) L 08/29/18 05:11 MCHC 32 % (32-34) 08/29/18 05:11 RDW 20.0 % (13.2-15.2) H 08/29/18 05:11 Plt Count 344 K/mm3 (140-440) 08/29/18 05:11 Lymph % (Auto) 6.9 % (13.4-35.0) L 08/29/18 05:11 [place] % (Auto) 8.6 % (0.0-7.3) H 08/29/18 05:11 Eos % (Auto) 2.0 % (0.0-4.3) 08/29/18 05:11 Baso % (Auto) 0.5 % (0.0-1.8) 08/29/18 05:11 Lymph # 0.9 K/mm3 (1.2-5.4) L 08/29/18 05:11 [place] # 1.2 K/mm3 (0.0-0.8) H 08/29/18 05:11 Eos # 0.3 K/mm3 (0.0-0.4) 08/29/18 05:11 Baso # 0.1 K/mm3 (0.0-0.1) 08/29/18 05:11 Seg Neutrophils % 82.0 % (40.0-70.0) H 08/29/18 05:11 Seg Neutrophils # 11.3 K/mm3 (1.8-7.7) H 08/29/18 05:11 ESR 111 mm/Hr (0-20) 08/27/18 11:11 PT 17.2 Sec. (12.2-14.9) H 08/30/18 04:52 INR 1.36 (0.87-1.13) H 08/30/18 04:52 APTT 43.1 Sec. (24.2-36.6) H 08/25/18 16:49 Sodium 129 mmol/L (137-145) L 08/30/18 04:52 Potassium 3.2 mmol/L (3.6-5.0) L 08/30/18 04:52 Chloride 88.9 mmol/L (98-107) L 08/30/18 04:52 Carbon Dioxide 24 mmol/L (22-30) 08/30/18 04:52 Anion Gap 19 mmol/L 08/30/18 04:52 BUN 51 mg/dL (9-20) H 08/30/18 04:52 Creatinine 2.3 mg/dL (0.8-1.5) H 08/30/18 04:52 Estimated GFR 28 ml/min 08/30/18 04:52 BUN/Creatinine Ratio 22 % 08/30/18 04:52 Glucose 235 mg/dL (75-100) H 08/30/18 04:52 POC Glucose 273 (70-105) H 08/30/18 07:19 Hemoglobin A1c 8.7 % (4-6) H 08/26/18 04:58 Calcium 8.2 mg/dL (8.4-10.2) L 08/30/18 04:52 Magnesium 2.00 mg/dL (1.7-2.3) 08/25/18 16:49 Iron 18 ug/dL (49-181) L 08/29/18 05:11 TIBC 209 mcg/dL (250-450) L 08/29/18 05:11 Ferritin 264.4 ng/mL (13.0-400.0) 08/29/18 05:11 Total Creatine Kinase 116 units/L (55-170) 08/25/18 16:49 Troponin T 0.080 ng/mL (0.00-0.029) H 08/25/18 16:49 C-Reactive Protein 17.50 mg/dL (0.00-1.30) H 08/27/18 11:11 Triglycerides 121 mg/dL (2-149) 08/25/18 16:49 Cholesterol 105 mg/dL (50-199) 08/25/18 16:49 LDL Cholesterol Direct 58 mg/dL (50-130) 08/25/18 16:49 HDL Cholesterol 31 mg/dL (40-59) L 08/25/18 16:49 Cholesterol/HDL Ratio 3.38 % 08/25/18 16:49 Urine Color Yellow (Yellow) 08/26/18 12:55 Urine Turbidity Clear (Clear) 08/26/18 12:55 Urine pH 5.0 (5.0-7.0) 08/26/18 12:55 Ur Specific [place] 1.009 (1.003-1.030) 08/26/18 12:55 Urine Protein 30 mg/dl mg/dL (Negative) 08/26/18 12:55 Urine Glucose (UA) 50 mg/dL (Negative) 08/26/18 12:55 Urine Ketones Tr mg/dL (Negative) 08/26/18 12:55 Urine Blood Mod (Negative) 08/26/18 12:55 Urine Nitrite Neg (Negative) 08/26/18 12:55 Urine Bilirubin Neg (Negative) 08/26/18 12:55 Urine Urobilinogen < 2.0 mg/dL (<2.0) 08/26/18 12:55 Ur Leukocyte Esterase Neg (Negative) 08/26/18 12:55 Urine WBC (Auto) 4.0 /HPF (0.0-6.0) 08/26/18 12:55 Urine RBC (Auto) 7.0 /HPF (0.0-6.0) 08/26/18 12:55 U Epithel Cells (Auto) 1.0 /HPF (0-13.0) 08/26/18 12:55 Urine Mucus Few /HPF 08/26/18 12:55 Random Vancomycin 15.5 ug/mL (0-40.0) 08/27/18 04:03 Nutrition/Malnutrition Assess - Dietary Evaluation Nutrition/Malnutrition Findings: Nutrition Notes Start: 08/26/18 13:18 Freq: Status: Active Protocol: Document 08/29/18 14:24 CT (Rec: 08/29/18 15:18 CT [id number]) Co-Sign 08/29/18 14:24 RM Nutrition Notes 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 RN states he has been eating about half of his meals and tolerating them well. Burn Absent Trauma Absent #1 Nutrition Diagnoses Inadequate oral intake As Evidenced by Signs and Symptoms per RN statement that pt is eating half of meals. Diagnosis Progress(for reassessment Improved documentation) Is patient on ventilator? No Is Patient Ambulatory and/or Out of Bed No REE-([facility]-confined to bed) 2218.116 Kcal/Kg value to use for calculation 16 Approximate Energy Requirements Using 1742 kcal/Kg Calculation Used for Recommendations Kcal/kg Additional Notes Protein needs are 87 - 109 g PRO (0.8 - 1.0 g/kg) Fluid needs are 1ml/kcal Nutrition Intervention Change Diet Order: add consistent CHO modification. Goal #1 Increase PO intake to meet at least 75% of kcal and PRO needs. Anticipated Discharge Needs: Cardiac consistent CHO Follow-Up By: 09/01/18 Additional Comments F/U: intakes
[2018-08-30] MEDS: ceFAZolin 2 GM in NACL 0.9% 100 ML IV SCH ×2 (09:31→22:00)
--- NOTE | 2018-08-30 09:32 | Query- Renal Failure ---
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 Questions asked do not imply a particular answer is desired or expected. We greatly appreciate your clarification on this issue. Clinical Documentation States: This is a pleasant 67-year-old gentleman presented to the emergency room with a complaint of global weakness, recurrent falls, malaise, fatigue. The Hospitalist progress note (Dr. Jacobsen) on 08/29/2018 stated "NATALIA/CKD - Nephrology is following. Status post unilateral nephrectomy. He has a single kidney and has CKD." Clinical Findings Show: Creatinine 08/25 2.2 08/27 2.4 08/28 2.7 08/29 2.9 Please clarify if you mean: Acute Renal Failure with or due to: [ ] Tubular Necrosis [ ] Medullary Necrosis [ ] Vasomotor Nephropathy [ ] Shock Kidney [ ] Tubular Nephrosis [ ] Renal Tubular Stasis [ ] Cortical Necrosis [x ] Acute Renal Failure (unspecified) [ ] Lower Tubular Nephrosis [ ] Other: [ ] Not Applicable Present on Admission: [ x] Yes (Y) [ ] Clinically undeterminable (W) [ ] No (N) Please also document response in your Progress Notes and/or Discharge Summary and indicate if the condition was present on admission. SCOTT
[2018-08-30] MEDS ORDERED: K-DUR PO ONE (10:00)
--- NOTE | 2018-08-30 10:41 | Progress Note ---
Assessment and Plan Sepsis/cellulitis of the lower extremities PAD with ulceration Vascular w/u in progress. Per vascular, pt for possible angiogram and catina scularization. A. fib Supratherapeutic INR - improved, INR 1.3 this AM Continue metoprolol 75 BID Anemia Stool occult positive Per GI, the patient has had prior endoscopic w/u, and declines further intervention at present, OK with resumption of warfarin cautiously, with close monitoring of CBC. ? NATALIA on CKD Nephrology following DM Hypokalemia / hypomag Currently stable cardiac status. Replete lytes. Ok to cautiously resume systemic AC per GI team. However, pt for possible angiogram and revascularization per vascular team. Will intiate heparin gtt at this time and resume coumadin after vascular w/u is completed. The patient has been seen in conjunction with Dr. Sky who agrees with the assessment and plan of care. Subjective Date of service: 08/30/18 Principal diagnosis: cellulitis; afib; elevated INR Interval history: pt resting in bed, no current cardiac complaints. at bedside. Objective Last Vital Signs Temp 98.2 F 08/30/18 08:35 Pulse 73 08/30/18 09:26 Resp 22 08/30/18 08:35 BP 125/51 08/30/18 09:26 Pulse Ox 94 08/30/18 08:35 - Physical Examination General: No Apparent Distress HEENT: Positive: PERRL Neck: Positive: neck supple, trachea midline Cardiac: Positive: irregularly irregular, S1/S2 Lungs: Positive: Decreased Breath Sounds Abdomen: Positive: Soft, Active Bowel Sounds Skin: Positive: Rash, Other (BLE wounds, cellulitis) Extremities: Present: edema, warm - Labs and Meds Coagulation 08/30/18 Range/Units 04:52 PT 17.2 H (12.2-14.9) Sec. INR 1.36 H (0.87-1.13) Comprehensive Metabolic Panel 08/30/18 Range/Units 04:52 Sodium 129 L (137-145) mmol/L Potassium 3.2 L (3.6-5.0) mmol/L Chloride 88.9 L (98-107) mmol/L Carbon Dioxide 24 (22-30) mmol/L BUN 51 H (9-20) mg/dL Creatinine 2.3 H (0.8-1.5) mg/dL Glucose 235 H (75-100) mg/dL Calcium 8.2 L (8.4-10.2) mg/dL - Imaging and Cardiology Echo: report reviewed ( 04/05/2018: Ejection fraction 52%, no significant valvular abnormalities noted)
[2018-08-30] MEDS ORDERED: HEPARIN/ 0.45% NACL-25,000 UNIT/500 ML 25,000 UNIT/500 ML BAG IV SCH (11:00)
--- NOTE | 2018-08-30 11:07 | Progress Note ---
Assessment and Plan Imagin08/25/2018 Chest: mild congestive failure verses less likely infectious interstitial infiltrates. No definite effusion 08/25/2018 Foot xray: Possible nondisplaced fracture of the left 2nd toe middle phalanx. Globally osteopenic bones in the foot with poor visualization of the tarsals. 08/25/2018: Tibia/Fibula x-ray: Degenerative arthritis left ankle. No definite fracture or dislocation left tibia or fibula Cultures: 08/27/2018 Left Foot: Staph aureus 08/28/2018 Blood: in progress A/P: 66-year-old male with a history of obesity, diabetes, hypertension and atrial fibrillation, admitted with: 1. Sepsis: Improved, leukocytosis continuing. Etiology unclear. large open wound on dorsal aspect of left foot.. +/- diabetic foot ulceration, +/-- cellulitis, Chest xray shows no infiltrates, U/A negative for UTI. New onset fevers. Blood cultures not drawn. Currently being treated with renally dosed cefazolin -ESR- 111 -CRP 17.5 2. Left foot Cellulitis and wound infection : On exam, left foot warm, tender to touch with purulent drainage. + Diabetic neuropathy. Wound cultures positive for Staph aureus., f/u arterial doppler results 3. Fevers: Resolved 4. Type 2 Diabetes uncontrolled: tight glycemic control 5. NATALIA/CKD - Status post unilateral nephrectomy. He has a single kidney and has CKD. Start renally dosed cefazolin 6. Great Right Toe/Right Leg wound: - On exam, Right leg wound superficial, no drainage or odor. Great right toe, large ruptured blister, wrapped. Continue wound care. Plan f/u blood cultures f/u Left Foot wound culture Continue cefazolin 2 gms IV Q 12h (crCl 31), upon discharge will do oral antibiotics until 09/09/18. continue wound care [facility] M: [phone] O:[phone] Subjective Date of service: 08/30/18 Principal diagnosis: cellulitis; afib; elevated INR Interval history: Patient seen and examined. Stated that he was having generalized weakness today. at bedside. Nurses notes, labs, imaging and reports reviewed, discussed with patient. Objective - Exam Narrative Exam: Constitutional: Awake, alert, conversant, Mild acute distress Head, Ears, Nose: Normocephalic, atraumatic. External ears, nose normal Eyes: Conjunctivae/corneas clear. No icterus. No ptosis. Neck: Supple, no meningeal signs Oral: dentition food, no thrush . Cardiovascular: S1, S2 normal. Respiratory: Good air entry, clear to auscultation bilaterally GI: Soft, non-tender; bowel sounds normal. No peritoneal signs Musculoskeletal: Right foot edema, bilateral extremity weakness Skin: left foot wound, with purulent drainage, 3rd toe superficial wound, Right great toe ruptured blister, right leg wound superficial Hem/Lymphatic: No palpable cervical or supraclavicular nodes. No lymphangitis Psych: Mood ok. Affect normal Neurological: Awake, oriented to place, self and time - Constitutional Vitals: Vital Signs Temp Pulse Resp BP Pulse Ox 98.2 F 73 20 125/51 94 08/30/18 08:35 08/30/18 10:00 08/30/18 10:00 08/30/18 09:26 08/30/18 10:00 Temperature -Last 24 Hours Temperature 98.2 F Temperature 98.3 F Temperature 97.8 F - Labs CBC & Chem 7: 08/30/18 12:13 08/30/18 04:52 Labs: Abnormal lab results 08/29/18 08/29/18 08/29/18 Range/Units 11:51 16:45 21:44 PT (12.2-14.9) Sec. INR (0.87-1.13) Sodium (137-145) mmol/L Potassium (3.6-5.0) mmol/L Chloride (98-107) mmol/L BUN (9-20) mg/dL Creatinine (0.8-1.5) mg/dL Glucose (75-100) mg/dL POC Glucose 300 H 291 H 236 H (70-105) Calcium (8.4-10.2) mg/dL 08/30/18 08/30/18 08/30/18 Range/Units 04:52 04:52 07:19 PT 17.2 H (12.2-14.9) Sec. INR 1.36 H (0.87-1.13) Sodium 129 L (137-145) mmol/L Potassium 3.2 L (3.6-5.0) mmol/L Chloride 88.9 L (98-107) mmol/L BUN 51 H (9-20) mg/dL Creatinine 2.3 H (0.8-1.5) mg/dL Glucose 235 H (75-100) mg/dL POC Glucose 273 H (70-105) Calcium 8.2 L (8.4-10.2) mg/dL
[2018-08-30 13:13] LABS: Basophils % (Auto) 0.4 % (0.0-1.8); Eosinophils # (Auto) 0.4 K/mm3 (0.0-0.4); Eosinophils % (Auto) 3.9 % (0.0-4.3); Hematocrit 29.6 % (35.5-45.6); Hemoglobin 9.5 gm/dl (11.8-15.2); Lymphocytes # (Auto) 0.6 K/mm3 (1.2-5.4); Lymphocytes % (Auto) 6.2 % (13.4-35.0); Mean Corpuscular HGB Conc 32 % (32-34); Mean Corpuscular Volume 80 fl (84-94); Monocytes # (Auto) 0.6 K/mm3 (0.0-0.8); Monocytes % (Auto) 6.5 % (0.0-7.3); Platelet Count 362 K/mm3 (140-440); Red Blood Count 3.73 M/mm3 (3.65-5.03); Red Cell Distribution Width 20.4 % (13.2-15.2)
[2018-08-30 13:30] LABS: INR 1.25 (0.87-1.13)
[2018-08-30 13:31] LABS: Partial Thromboplastin Time 34.9 Sec. (24.2-36.6)
[2018-08-30] MEDS ORDERED: COUMADIN PO SCH (17:00)
[2018-08-30] MEDS ORDERED: HEPARIN 10,000 UNITS/10 ML IV ONE (19:45)
[2018-08-30] MEDS: FLOMAX PO SCH (22:39)
[2018-08-30] MEDS: PRAVACHOL PO SCH (22:40)
[2018-08-31] MEDS: HumaLOG SUB-Q SCH ×5 (00:04→22:18)
[2018-08-31] MEDS: LOPRESSOR PO SCH ×3 (00:08→22:17)
[2018-08-31 06:30] LABS: Basophils # (Auto) 0.1 K/mm3 (0.0-0.1); Basophils % (Auto) 0.6 % (0.0-1.8); Eosinophils # (Auto) 0.4 K/mm3 (0.0-0.4); Eosinophils % (Auto) 3.7 % (0.0-4.3); Hematocrit 27.5 % (35.5-45.6); Lymphocytes # (Auto) 0.9 K/mm3 (1.2-5.4); Mean Corpuscular HGB Conc 33 % (32-34); Mean Corpuscular Volume 79 fl (84-94); Monocytes # (Auto) 0.7 K/mm3 (0.0-0.8); Monocytes % (Auto) 7.5 % (0.0-7.3); Platelet Count 388 K/mm3 (140-440); Red Blood Count 3.47 M/mm3 (3.65-5.03)
[2018-08-31 06:33] LABS: INR 1.34 (0.87-1.13); Red Cell Distribution Width 20.9 % (13.2-15.2)
[2018-08-31 06:40] LABS: Calcium 8.1 mg/dL (8.4-10.2)
[2018-08-31] MEDS: HumuLIN R SUB-Q SCH ×3 (08:00→17:28)
--- NOTE | 2018-08-31 08:05 | Vascular Lab Report ---
FINAL REPORT EXAM: VL ARTERIAL DUPLEX LE BILAT HISTORY: Ulcers of bilateral lower extremities TECHNIQUE: Bilateral arterial duplex Doppler. Color flow and spectral waveform images were obtained. PRIORS: None. FINDINGS: On the right side there is triphasic flow from external iliac to distal superficial femoral artery. There is biphasic flow involving popliteal and calf arteries. There are atherosclerotic changes bilat erally. Flow velocities are high a throughout right lower extremity. In the common femoral artery wit h elevated velocity of 261 centimeters/second as compared to the distal iliac artery which has a velo city of 170 centimeters/second. This likely reflects some degree of [employer]OR stenosis. Similarly the anter ior tibial artery on the right has an elevated velocity of 200 centimeters/second as compared to popl iteal velocity of 99 centimeters/second which may indicate some anterior tibial artery stenosis. On the left side there is triphasic flow from external iliac artery to the proximal superficial femor al artery. There is biphasic flow in mid to distal superficial femoral artery and monophasic flow fro m popliteal artery into the calf. There are atherosclerotic changes throughout. Flow velocities are a lso elevated throughout most of lower extremity arteries with diminished flow in the posterior tibial artery. Anterior tibial artery flow flow velocity is elevated relative to the popliteal velocity. Sp ecifically anterior tibial artery velocity is 227 centimeters/second as compared to 87 centimeters/se cond in the popliteal artery. IMPRESSION: Diffuse atherosclerotic changes. Elevated flow velocities throughout lower extremity arteries may ind icate multiple areas of stenosis. Most notably, flow velocities suggest stenosis involving right femo ral artery and right anterior tibial artery. On the left flow velocities are diffusely elevated but s uggests notable stenosis involving left anterior tibial artery as well as posterior tibial artery, th e latter demonstrating diminished blood flow.
[2018-08-31] MEDS ORDERED: HEPARIN/NS 5000 UNIT/500ML(CATH LAB) 1,000 ML IR ONE (08:23)
--- NOTE | 2018-08-31 08:49 | Progress Note ---
Assessment and Plan Imagin08/25/2018 Chest: mild congestive failure verses less likely infectious interstitial infiltrates. No definite effusion 08/25/2018 Foot xray: Possible nondisplaced fracture of the left 2nd toe middle phalanx. Globally osteopenic bones in the foot with poor visualization of the tarsals. 08/25/2018: Tibia/Fibula x-ray: Degenerative arthritis left ankle. No definite fracture or dislocation left tibia or fibula Cultures: 08/27/2018 Left Foot: Staph aureus 08/28/2018 Blood: No growth A/P: 66-year-old male with a history of obesity, diabetes, hypertension and atrial fibrillation, admitted with: 1. Sepsis: Improved, leukocytosis continuing. Etiology unclear. large open wound on dorsal aspect of left foot.. +/- diabetic foot ulceration, +/-- cellulitis, Chest xray shows no infiltrates, U/A negative for UTI. New onset fevers. Blood cultures not drawn. Currently being treated with renally dosed cefazolin -ESR- 111 -CRP 17.5 2. Left foot Cellulitis and wound infection : On exam, left foot warm, tender to touch with purulent drainage. + Diabetic neuropathy. Wound cultures positive for Staph aureus., f/u arterial doppler results 3. Fevers: Resolved 4. Type 2 Diabetes uncontrolled: tight glycemic control 5. NATALIA/CKD - Status post unilateral nephrectomy. He has a single kidney and has CKD. Start renally dosed cefazolin 6. Great Right Toe/Right Leg wound: - On exam, Right leg wound superficial, no drainage or odor. Great right toe, large ruptured blister, wrapped. Continue wound care. Arterial Doppler studies suggest multiple areas of stenosis in right femoral and tibial artery. s/p Angiogram with revasculazation today- Dr. Rojas following. Plan Continue cefazolin 2 gms IV Q 12h (crCl 41) continue wound care Upon discharge will do PO Keflex (crCl 41) 500mg q 12 total 10 days ending 09/07/18 f/u ID office 09/14/18 [facility] M: [phone] O:[phone] Subjective Date of service: 08/31/18 Principal diagnosis: cellulitis; afib; elevated INR Interval history: Patient seen and examined. Somnolent, s/p angiogram and revasculazation . at bedside. Discharge antibiotic regimen discussed with , verbalized understanding. Objective - Exam Narrative Exam: Constitutional:Somnolent, no acute distress Head, Ears, Nose: Normocephalic, atraumatic. External ears, nose normal Eyes: Conjunctivae/corneas clear. No icterus. No ptosis. Neck: Supple, no meningeal signs Oral: dentition food, no thrush . Cardiovascular: S1, S2 normal. Respiratory: Good air entry, clear to auscultation bilaterally GI: Soft, non-tender; bowel sounds normal. No peritoneal signs Musculoskeletal: Right foot edema, bilateral extremity weakness Skin: left foot wound, with purulent drainage, 3rd toe superficial wound, Right great toe ruptured blister, right leg wound superficial Hem/Lymphatic: No palpable cervical or supraclavicular nodes. No lymphangitis Psych: Mood ok. Affect normal Neurological: Awake, oriented to place, self and time - Constitutional Vitals: Vital Signs Temp Pulse Resp BP Pulse Ox 98.7 F 75 28 H 132/52 96 08/31/18 01:43 08/31/18 01:43 08/31/18 01:43 08/31/18 01:43 08/31/18 01:43 Temperature -Last 24 Hours Temperature 98.7 F Temperature 98.7 F Temperature 98.2 F - Labs CBC & Chem 7: 08/31/18 05:17 08/31/18 05:17 Labs: Abnormal lab results 08/30/18 08/30/18 08/30/18 Range/Units 11:16 12:13 12:13 RBC (3.65-5.03) M/mm3 Hgb 9.5 L (11.8-15.2) gm/dl Hct 29.6 L (35.5-45.6) % MCV 80 L (84-94) fl MCH 26 L (28-32) pg RDW 20.4 H (13.2-15.2) % Lymph % (Auto) 6.2 L (13.4-35.0) % [place] % (Auto) (0.0-7.3) % Lymph # 0.6 L (1.2-5.4) K/mm3 Seg Neutrophils % 83.0 H (40.0-70.0) % Seg Neutrophils # 8.0 H (1.8-7.7) K/mm3 PT 16.1 H (12.2-14.9) Sec. INR 1.25 H (0.87-1.13) Heparin Anti-Xa Level (0.3-0.7) U.I./ml Sodium (137-145) mmol/L Potassium (3.6-5.0) mmol/L Chloride (98-107) mmol/L BUN (9-20) mg/dL Creatinine (0.8-1.5) mg/dL Glucose (75-100) mg/dL POC Glucose 263 H (70-105) Calcium (8.4-10.2) mg/dL 08/30/18 08/30/18 08/30/18 Range/Units 16:31 17:40 21:46 RBC (3.65-5.03) M/mm3 Hgb (11.8-15.2) gm/dl Hct (35.5-45.6) % MCV (84-94) fl MCH (28-32) pg RDW (13.2-15.2) % Lymph % (Auto) (13.4-35.0) % [place] % (Auto) (0.0-7.3) % Lymph # (1.2-5.4) K/mm3 Seg Neutrophils % (40.0-70.0) % Seg Neutrophils # (1.8-7.7) K/mm3 PT (12.2-14.9) Sec. INR (0.87-1.13) Heparin Anti-Xa Level < 0.10 L (0.3-0.7) U.I./ml Sodium (137-145) mmol/L Potassium (3.6-5.0) mmol/L Chloride (98-107) mmol/L BUN (9-20) mg/dL Creatinine (0.8-1.5) mg/dL Glucose (75-100) mg/dL POC Glucose 270 H 182 H (70-105) Calcium (8.4-10.2) mg/dL 08/31/18 08/31/18 08/31/18 Range/Units 00:02 05:17 05:17 RBC (3.65-5.03) M/mm3 Hgb (11.8-15.2) gm/dl Hct (35.5-45.6) % MCV (84-94) fl MCH (28-32) pg RDW (13.2-15.2) % Lymph % (Auto) (13.4-35.0) % [place] % (Auto) (0.0-7.3) % Lymph # (1.2-5.4) K/mm3 Seg Neutrophils % (40.0-70.0) % Seg Neutrophils # (1.8-7.7) K/mm3 PT 17.0 H (12.2-14.9) Sec. INR 1.34 H (0.87-1.13) Heparin Anti-Xa Level (0.3-0.7) U.I./ml Sodium 134 L (137-145) mmol/L Potassium 3.5 L (3.6-5.0) mmol/L Chloride 94.1 L (98-107) mmol/L BUN 50 H (9-20) mg/dL Creatinine 2.2 H (0.8-1.5) mg/dL Glucose 259 H (75-100) mg/dL POC Glucose 216 H (70-105) Calcium 8.1 L (8.4-10.2) mg/dL 08/31/18 08/31/18 Range/Units 05:17 05:17 RBC 3.47 L (3.65-5.03) M/mm3 Hgb 9.0 L (11.8-15.2) gm/dl Hct 27.5 L (35.5-45.6) % MCV 79 L (84-94) fl MCH 26 L (28-32) pg RDW 20.9 H (13.2-15.2) % Lymph % (Auto) 9.0 L (13.4-35.0) % [place] % (Auto) 7.5 H (0.0-7.3) % Lymph # 0.9 L (1.2-5.4) K/mm3 Seg Neutrophils % 79.2 H (40.0-70.0) % Seg Neutrophils # 7.8 H (1.8-7.7) K/mm3 PT (12.2-14.9) Sec. INR (0.87-1.13) Heparin Anti-Xa Level < 0.10 L (0.3-0.7) U.I./ml Sodium (137-145) mmol/L Potassium (3.6-5.0) mmol/L Chloride (98-107) mmol/L BUN (9-20) mg/dL Creatinine (0.8-1.5) mg/dL Glucose (75-100) mg/dL POC Glucose (70-105) Calcium (8.4-10.2) mg/dL
--- NOTE | 2018-08-31 08:55 | Progress Note ---
Assessment and Plan Impression * Chronic kidney disease * Sepsis * Left foot ulcer * Fluid overload * History of renal cell CA. Status post unilateral nephrectomy * Hypertension * Diabetes Recommendations * Serum creatinine slowly improving today. stopped diuretics * Volume overload seems to have resolved. * add kcl to ivfs * replete k and mag prn * IV antibiotic and culture as per primary team * Avoid nephrotoxins * Monitor fluid status and electrolytes closely Subjective Date of service: 08/31/18 Principal diagnosis: cellulitis; afib; elevated INR Interval history: resting well in bed today Objective - Exam Narrative Exam: General appearance: well-developed, well-nourished, appears stated age EENT: PERRL, mucous membranes moist Neck: no JVD, no thyromegaly, no carotid bruit, supple Respiratory: Present: Clear to Ascultation Cardiology: regular, normal heart rate Gastrointestinal: normal, normoactive bowel sounds Integumentary: other (no edema. Wrinkling of skin noted. Ulceration noted in the dorsum of his left foot) - Vital Signs Vital signs: Vital Signs - 12hr 08/30/18 08/31/18 21:57 01:43 Temperature 98.7 F Pulse Rate 75 Respiratory 28 H Rate Blood Pressure 132/52 O2 Sat by Pulse 97 96 Oximetry - Lab 08/31/18 05:17 08/31/18 05:17 Most recent lab results Calcium 8.1 mg/dL (8.4-10.2) L 08/31/18 05:17 Magnesium 2.00 mg/dL (1.7-2.3) 08/30/18 09:08 Medications & Allergies - Medications Allergies/Adverse Reactions: Allergies No Known Allergies Allergy (Unverified 08/25/18 16:05) Home Medications: Home Medications Medication Instructions Recorded Confirmed Last Taken Type Bethanechol 25 mg PO BID 08/25/18 08/26/18 08/24/18 12:00 History Digoxin [Lanoxin] 0.125 mg PO DAILY 08/25/18 08/25/18 08/25/18 History Finasteride [Proscar] 5 mg PO QDAY 08/25/18 08/25/18 08/25/18 History Furosemide [Lasix TAB] 40 mg PO BID 08/25/18 08/25/18 08/25/18 History Insulin Regular,Human U-500(Nf 90 - 110 units SUB-Q TID 08/25/18 08/25/18 08/25/18 History [HumuLIN R] Metoprolol [Lopressor TAB] 75 mg PO BID 08/25/18 08/25/18 08/25/18 History Pravastatin [Pravachol] 80 mg PO QHS 08/25/18 08/25/18 08/24/18 History Tamsulosin HCl [Flomax] 0.8 mg PO HS 08/25/18 08/25/18 08/24/18 History Warfarin [Coumadin] 3.75 mg PO QDAY 08/25/18 08/25/18 08/24/18 History cephALEXin [Keflex] 500 mg PO Q12HR 08/25/18 08/25/18 08/25/18 History metOLazone [Metolazone] 2.5 mg PO QDAY 08/25/18 08/25/18 08/25/18 History Active Medications: Generic Name Dose Route Start Last Admin Trade Name Freq PRN Reason Stop Dose Admin Bethanechol Chloride 25 mg 08/26/18 10:00 08/30/18 22:41 Urecholine PO 25 mg BID JOAN Administration Digoxin 0.125 mg 08/26/18 10:00 08/30/18 09:25 Lanoxin PO 0.125 mg DAILY JOAN Administration Finasteride 5 mg 08/26/18 10:00 08/30/18 09:29 Proscar PO 5 mg QDAY JOAN Administration Heparin Sodium (Porcine) 4,200 unit 08/31/18 07:29 Heparin 10,000 Units/10 Ml IV 08/31/18 07:30 ONCE ONE Cefazolin Sodium 2 gm/ Sodium 100 mls @ 200 mls/hr 08/29/18 22:00 08/30/18 22:00 Chloride IV 200 mls/hr Q12HR JOAN Administration Sodium Chloride 1,000 mls @ 75 mls/hr 08/30/18 00:01 Nacl 0.9% 1000 Ml IV DIRECT JOAN Heparin Sodium/Sodium Chloride 25,000 unit in 500 mls @ 30 mls/hr 08/30/18 11:00 08/30/18 19:44 Heparin/ 0.45% Nacl-25,000 Unit/500 Ml IV 1,800 units/hr TITR JOAN 36 mls/hr Titration Protocol 1,500 UNITS/HR Insulin Human Lispro 0 unit 08/26/18 07:30 08/31/18 00:04 Humalog SUB-Q Not Given ACHS JOAN Protocol Insulin Human Regular 40 units 08/28/18 12:30 08/30/18 16:37 Humulin R SUB-Q 40 units AC JOAN Administration Megestrol Acetate 400 mg 08/27/18 14:00 08/30/18 09:30 Megace PO Not Given QDAY JOAN Metoprolol Tartrate 75 mg 08/26/18 10:00 08/31/18 00:08 Lopressor PO Not Given BID JOAN Pantoprazole Sodium 40 mg 08/28/18 11:00 08/30/18 09:23 Protonix IV 40 mg QDAY JOAN Administration Pravastatin Sodium 80 mg 08/26/18 22:00 08/30/18 22:40 Pravachol PO 80 mg QHS JOAN Administration Tamsulosin HCl 0.8 mg 08/26/18 22:00 08/30/18 22:39 Flomax PO 0.8 mg HS JOAN Administration
[2018-08-31] MEDS ORDERED: HEPARIN 10,000 UNITS/10 ML IV ONE ×2 (09:00→10:10)
[2018-08-31] MEDS ORDERED: NACL 0.9% 1000 ML 1,000 ML with KCL 20 MEQ IV SCH (09:00)
[2018-08-31] MEDS ORDERED: NACL 0.9% 250ML 250 ML ONE (09:26)
[2018-08-31] MEDS: SUBLIMAZE ONE ×6 (09:40→10:23)
[2018-08-31] MEDS: XYLOCAINE 2% INFILTRATI ONE ×2 (09:42→09:58)
[2018-08-31] MEDS: VERSED ONE ×3 (09:42→10:23)
[2018-08-31] MEDS ORDERED: NS/KCL 20MEQ 20 MEQ/1,000 ML BAG IV SCH (10:00)
[2018-08-31] MEDS ORDERED: SUBLIMAZE ONE (10:39)
[2018-08-31] MEDS ORDERED: VERSED ONE (10:39)
[2018-08-31] MEDS ORDERED: BABY ASPIRIN ONE (11:03)
--- NOTE | 2018-08-31 11:04 | Progress Note ---
Assessment and Plan Assessment and plan: Sepsis secondary to cellulitis of the lower extremities - sepsis evidenced with tachycardia and leukocytosis - Cont. abx per ID, f/u blood cultures, f/u Left Foot wound culture - wound culture grew s.aureus - Wound care following - sed rate 111 PVD Patient with nonhealing ulcerations to bilateral lower extremities left worse than the right. Lower extremity arterial duplex shows that he has some mateusz ofemoral disease and also some tibial disease. An angiogram would be necessary to complete a revascularization. However, he has a history of a unilateral nephrectomy. A. fib - continue metoprolol - Coumadin was held for supratherapeutic INR, s/p viatmin k. - Resume Coumadin per protocol. History of CVA - Mild residual right-sided weakness - Continue supportive care Congestive heart failure - Compensated, Patient is euvolemic - continue current medication regimen Anemia - FOBT is positive and GI consulted, No procedure needed for now - Correct INR DM with hyperglycemia - On novolin R NATALIA/CKD - Nephrology is following. Status post unilateral nephrectomy. He has a single kidney and has CKD Disposition - Continue inpatient care History Interval history: No new issues overnight Hospitalist Physical - Constitutional Vitals: Temp Pulse Resp BP Pulse Ox 98.5 F 70 20 128/51 96 08/31/18 07:58 08/31/18 07:58 08/31/18 07:58 08/31/18 07:58 08/31/18 07:58 General appearance: Present: obese - EENT Eyes: Present: PERRL, EOM intact ENT: hearing intact, clear oral mucosa, dentition normal - Neck Neck: Present: supple, normal ROM - Respiratory Respiratory effort: normal Respiratory: bilateral: CTA - Cardiovascular Rhythm: regular Heart Sounds: Present: S1 & S2. Absent: gallop, rub - Extremities Extremities: no ischemia, No edema, Full ROM - Abdominal General gastrointestinal: soft, non-tender, non-distended, normal bowel sounds - Integumentary Integumentary: Present: clear, warm, dry - Neurologic Neurologic: CNII-XII intact, moves all extremities Results - Labs CBC & Chem 7: 08/31/18 05:17 08/31/18 05:17 Labs: Laboratory Last Values WBC 9.8 K/mm3 (4.5-11.0) 08/31/18 05:17 RBC 3.47 M/mm3 (3.65-5.03) L 08/31/18 05:17 Hgb 9.0 gm/dl (11.8-15.2) L 08/31/18 05:17 Hct 27.5 % (35.5-45.6) L 08/31/18 05:17 MCV 79 fl (84-94) L 08/31/18 05:17 MCH 26 pg (28-32) L 08/31/18 05:17 MCHC 33 % (32-34) 08/31/18 05:17 RDW 20.9 % (13.2-15.2) H 08/31/18 05:17 Plt Count 388 K/mm3 (140-440) 08/31/18 05:17 Lymph % (Auto) 9.0 % (13.4-35.0) L 08/31/18 05:17 [place] % (Auto) 7.5 % (0.0-7.3) H 08/31/18 05:17 Eos % (Auto) 3.7 % (0.0-4.3) 08/31/18 05:17 Baso % (Auto) 0.6 % (0.0-1.8) 08/31/18 05:17 Lymph # 0.9 K/mm3 (1.2-5.4) L 08/31/18 05:17 [place] # 0.7 K/mm3 (0.0-0.8) 08/31/18 05:17 Eos # 0.4 K/mm3 (0.0-0.4) 08/31/18 05:17 Baso # 0.1 K/mm3 (0.0-0.1) 08/31/18 05:17 Seg Neutrophils % 79.2 % (40.0-70.0) H 08/31/18 05:17 Seg Neutrophils # 7.8 K/mm3 (1.8-7.7) H 08/31/18 05:17 ESR 111 mm/Hr (0-20) 08/27/18 11:11 PT 17.0 Sec. (12.2-14.9) H 08/31/18 05:17 INR 1.34 (0.87-1.13) H 08/31/18 05:17 APTT 34.9 Sec. (24.2-36.6) 08/30/18 12:13 Heparin Anti-Xa Level < 0.10 U.I./ml (0.3-0.7) L 08/31/18 05:17 Sodium 134 mmol/L (137-145) L 08/31/18 05:17 Potassium 3.5 mmol/L (3.6-5.0) L 08/31/18 05:17 Chloride 94.1 mmol/L (98-107) L 08/31/18 05:17 Carbon Dioxide 23 mmol/L (22-30) 08/31/18 05:17 Anion Gap 20 mmol/L 08/31/18 05:17 BUN 50 mg/dL (9-20) H 08/31/18 05:17 Creatinine 2.2 mg/dL (0.8-1.5) H 08/31/18 05:17 Estimated GFR 30 ml/min 08/31/18 05:17 BUN/Creatinine Ratio 23 % 08/31/18 05:17 Glucose 259 mg/dL (75-100) H 08/31/18 05:17 POC Glucose 297 (70-105) H 08/31/18 07:57 Hemoglobin A1c 8.7 % (4-6) H 08/26/18 04:58 Calcium 8.1 mg/dL (8.4-10.2) L 08/31/18 05:17 Magnesium 2.00 mg/dL (1.7-2.3) 08/30/18 09:08 Iron 18 ug/dL (49-181) L 08/29/18 05:11 TIBC 209 mcg/dL (250-450) L 08/29/18 05:11 Ferritin 264.4 ng/mL (13.0-400.0) 08/29/18 05:11 Total Creatine Kinase 116 units/L (55-170) 08/25/18 16:49 Troponin T 0.080 ng/mL (0.00-0.029) H 08/25/18 16:49 C-Reactive Protein 17.50 mg/dL (0.00-1.30) H 08/27/18 11:11 Triglycerides 121 mg/dL (2-149) 08/25/18 16:49 Cholesterol 105 mg/dL (50-199) 08/25/18 16:49 LDL Cholesterol Direct 58 mg/dL (50-130) 08/25/18 16:49 HDL Cholesterol 31 mg/dL (40-59) L 08/25/18 16:49 Cholesterol/HDL Ratio 3.38 % 08/25/18 16:49 Urine Color Yellow (Yellow) 08/26/18 12:55 Urine Turbidity Clear (Clear) 08/26/18 12:55 Urine pH 5.0 (5.0-7.0) 08/26/18 12:55 Ur Specific [place] 1.009 (1.003-1.030) 08/26/18 12:55 Urine Protein 30 mg/dl mg/dL (Negative) 08/26/18 12:55 Urine Glucose (UA) 50 mg/dL (Negative) 08/26/18 12:55 Urine Ketones Tr mg/dL (Negative) 08/26/18 12:55 Urine Blood Mod (Negative) 08/26/18 12:55 Urine Nitrite Neg (Negative) 08/26/18 12:55 Urine Bilirubin Neg (Negative) 08/26/18 12:55 Urine Urobilinogen < 2.0 mg/dL (<2.0) 08/26/18 12:55 Ur Leukocyte Esterase Neg (Negative) 08/26/18 12:55 Urine WBC (Auto) 4.0 /HPF (0.0-6.0) 08/26/18 12:55 Urine RBC (Auto) 7.0 /HPF (0.0-6.0) 08/26/18 12:55 U Epithel Cells (Auto) 1.0 /HPF (0-13.0) 08/26/18 12:55 Urine Mucus Few /HPF 08/26/18 12:55 Random Vancomycin 15.5 ug/mL (0-40.0) 08/27/18 04:03 Nutrition/Malnutrition Assess - Dietary Evaluation Nutrition/Malnutrition Findings: Nutrition Notes Start: 08/26/18 13:18 Freq: Status: Active Protocol: Document 08/29/18 14:24 CT (Rec: 08/29/18 15:18 CT [id number]) Co-Sign 08/29/18 14:24 RM Nutrition Notes 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 RN states he has been eating about half of his meals and tolerating them well. Burn Absent Trauma Absent #1 Nutrition Diagnosis Inadequate oral intake As Evidenced by Signs and Symptoms per RN statement that pt is eating half of meals. Diagnosis Progress(for reassessment Improved documentation) Is patient on ventilator? No Is Patient Ambulatory and/or Out of Bed No REE-([facility]-confined to bed) 2218.116 Kcal/Kg value to use for calculation 16 Approximate Energy Requirements Using 1742 kcal/Kg Calculation Used for Recommendations Kcal/kg Additional Notes Protein needs are 87 - 109 g PRO (0.8 - 1.0 g/kg) Fluid needs are 1ml/kcal Nutrition Intervention Change Diet Order: add consistent CHO modification. Goal #1 Increase PO intake to meet at least 75% of kcal and PRO needs. Anticipated Discharge Needs: Cardiac consistent CHO Follow-Up By: 09/01/18 Additional Comments F/U: intakes
--- NOTE | 2018-08-31 11:10 | Post Operative Note ---
Date of procedure: 08/31/18 Pre-op diagnosis: CLI of the lower extremities Post-op diagnosis: same Procedure: 1. Ultrasound guided access of the right common femoral artery 2. CO2 angiography of the right lower extremity 3. Selection of the abdominal aorta with CO2 angiography 4. Selection of the left external iliac artery, left superficial femoral artery, and popliteal artery with CO2 angiography 5. Angiography of the left lower extremity 6. Fluoroscopic guided placement of a 6 mm spider EPD in the left popliteal artery 7. Atherectomy of the left above knee popliteal artery with a [place] LS 8. Angioplasty of the left above knee popliteal artery with a 6 mm x 150 mm iNPACT DCB 9. Capture of the spider EPD 10. Closure of the right common femoral artery with a 6 Fr proglide Anesthesia: local (w/ conscious sedation) Surgeon: CALIXTO ARNETT Estimated blood loss: minimal Condition: stable Disposition: floor
--- NOTE | 2018-08-31 11:11 | Operative Report ---
Operative Report Operative Report: EXAM: 1. Ultrasound guided access of the right common femoral artery 2. CO2 angiography of the right lower extremity 3. Selection of the abdominal aorta with CO2 angiography 4. Selection of the left external iliac artery, left superficial femoral artery, and popliteal artery with CO2 angiography 5. Angiography of the left lower extremity 6. Fluoroscopic guided placement of a 6 mm spider EPD in the left popliteal artery 7. Atherectomy of the left above knee popliteal artery with a [place] LS 8. Angioplasty of the left above knee popliteal artery with a 6 mm x 150 mm iNPACT DCB 9. Fluoroscopic guided capture of the spider EPD 10. Closure of the right common femoral artery with a 6 Fr proglide DATE: 08/31/18 CLAIM APPROVER: CALIXTO ARNETT MD INDICATION: Critical limb ischemia of the lower extremities with bilateral lower extremity wounds and abnormal arterial ultrasounds, left side worse than right MEDICATIONS: Please see nursing report for full details. DEVICES: [place] LS device 6 mm spider EPD 6 mm x 150 mm iNPACT DCB CONTRAST: 14 mL nonionic contrast PROCEDURE: The risks, benefits, and alternatives were discussed with the patient and his ; written informed consent was obtained. The groins were prepped and draped in sterile fashion. Ultrasound was used to evaluate right common femoral artery which was patent. Under direct ultrasound guidance, the right common femoral artery was accessed with a 21-gauge micropuncture needle. 0.018 inch wire was passed into the aorta. Needle was exchanged for transitional dilator. Wire was extended for 0.035 wire. Transitional dilator was exchanged for 5 [place] sheath. CO2 angiography was performed demonstrating an appropriate puncture, above the bifurcation and below the inferior epigastric artery. The right common femoral artery, proximal superficial femoral artery, proximal profunda femoral artery, and right external iliac artery were patent. Flush catheter was advanced into the abdominal aorta and CO2 angiography was performed demonstrating patency of the infrarenal abdominal aorta, bilateral common iliac arteries, bilateral internal iliac arteries, and bilateral external iliac arteries. Left external iliac artery was selected, and CO2 angiography was performed. The left superficial femoral artery was selected and CO2 angiography was performed. The left popliteal artery was selected and CO2 angiography was performed. CO2 angiography demonstrated patency of the left common femoral artery, profundofemoral artery, superficial femoral artery, 70-80% narrowing of the above-knee popliteal artery, and patency of the mid and below-knee popliteal artery. Contrast was then injected in small aliquots and the runoff was demonstrated. The anterior tibial artery has multifocal 20% narrowings with runoff to the foot. The tibioperoneal trunk was patent. The peroneal artery had multifocal 20% narrowings, and then was confluent with the lateral and medial plantar arteries suggesting an anatomic variant where the posterior tibial artery in the foot was fed by the peroneal artery. I suspect this over the alternative which was a hypertrophied posterior communicating artery. Posterior tibial artery was not well identified and was likely atretic and chronically occluded. The patient was heparinized. She was exchanged for a 7 [place] 45 cm [place] destination positioned in the left proximal superficial femoral artery. 6 mm spider embolic protection device was deployed in the left popliteal artery. Atherectomy was performed of the above the knee popliteal artery achieving less than 20% residual narrowing. 6 mm x 150 mm drug-coated balloon was used to perform angioplasty of the popliteal artery. Digital subtraction angiography was performed demonstrating no extravasation or pseudoaneurysm and no residual narrowing. There is no identified debris in the embolic protection device. The embolic protection device was then retrieved. Digital subtraction angiography was performed demonstrating unchanged runoff. All wires, catheters, and sheaths were retracted to the right external iliac artery. Sheath was exchanged for 6 [place] Pro-glide which was used to close the artery achieving immediate hemostasis. Sterile dressing and pressure dressing applied. FINDINGS: Please see procedure note above. IMPRESSION: 1. Successful atherectomy and drug-coated angioplasty of the left popliteal artery. 2. Successful ultrasound-guided accessing closure of the right common femoral artery. 3. Successful angiography of the abdominal aorta and bilateral lower extremities.
[2018-08-31] MEDS: ceFAZolin 2 GM in NACL 0.9% 100 ML IV SCH ×2 (11:55→22:23)
[2018-08-31] MEDS: PROTONIX IV SCH (13:30)
[2018-08-31] MEDS: URECHOLINE PO SCH ×2 (13:31→22:16)
[2018-08-31] MEDS: MEGACE PO SCH ×2 (13:31→13:42)
[2018-08-31] MEDS: PROSCAR PO SCH (13:32)
[2018-08-31] MEDS: LANOXIN PO SCH (13:33)
[2018-08-31] MEDS ORDERED: COUMADIN PO SCH (17:00)
[2018-08-31] MEDS: FLOMAX PO SCH (22:16)
[2018-08-31] MEDS: PRAVACHOL PO SCH (22:17)
[2018-09-01 06:22] LABS: Basophils # (Auto) 0.1 K/mm3 (0.0-0.1); Basophils % (Auto) 0.5 % (0.0-1.8); Eosinophils # (Auto) 0.4 K/mm3 (0.0-0.4); Eosinophils % (Auto) 3.7 % (0.0-4.3); Hematocrit 28.8 % (35.5-45.6); Hemoglobin 9.1 gm/dl (11.8-15.2); INR 1.25 (0.87-1.13); Lymphocytes # (Auto) 0.9 K/mm3 (1.2-5.4); Lymphocytes % (Auto) 7.5 % (13.4-35.0); Mean Corpuscular HGB Conc 32 % (32-34); Mean Corpuscular Volume 80 fl (84-94); Monocytes # (Auto) 0.8 K/mm3 (0.0-0.8); Monocytes % (Auto) 7.3 % (0.0-7.3); Platelet Count 458 K/mm3 (140-440); Red Blood Count 3.62 M/mm3 (3.65-5.03)
[2018-09-01 06:25] LABS: Red Cell Distribution Width 20.9 % (13.2-15.2)
[2018-09-01 06:37] LABS: Calcium 8.9 mg/dL (8.4-10.2)
--- NOTE | 2018-09-01 08:34 | Progress Note ---
Assessment and Plan Imagin08/25/2018 Chest: mild congestive failure verses less likely infectious interstitial infiltrates. No definite effusion 08/25/2018 Foot xray: Possible nondisplaced fracture of the left 2nd toe middle phalanx. Globally osteopenic bones in the foot with poor visualization of the tarsals. 08/25/2018: Tibia/Fibula x-ray: Degenerative arthritis left ankle. No definite fracture or dislocation left tibia or fibula Cultures: 08/27/2018 Left Foot: Staph aureus 08/28/2018 Blood: No growth A/P: 66-year-old male with a history of obesity, diabetes, hypertension and atrial fibrillation, admitted with: 1. Sepsis: Improved, leukocytosis improving. Etiology unclear. large open wound on dorsal aspect of left foot.. +/- diabetic foot ulceration, +/-- cellulitis, Chest xray shows no infiltrates, U/A negative for UTI. New onset fevers. Blood cultures not drawn. Currently being treated with renally dosed cefazolin -ESR- 111 -CRP 17.5 2. Left foot Cellulitis and wound infection : On exam, left foot warm, tender to touch with purulent drainage. + Diabetic neuropathy. Wound cultures positive for Staph aureus., f/u arterial doppler results 3. Fevers: Resolved 4. Type 2 Diabetes uncontrolled: tight glycemic control 5. NATALIA/CKD - Status post unilateral nephrectomy. He has a single kidney and has CKD. Continue renally dosed cefazolin 6. Great Right Toe/Right Leg wound: - On exam, Right leg wound superficial, no drainage or odor. Great right toe, large ruptured blister, wrapped. Continue wound care. Arterial Doppler studies suggest multiple areas of stenosis in right femoral and tibial artery. s/p Angiogram with revasculazation yesterday - Dr. Rojas following. Plan Continue cefazolin 2 gms IV Q 12h (crCl 41) continue wound care Upon discharge will do PO Keflex (crCl 41) 500mg q 12 total 10 days ending 09/07/18 f/u ID office 09/14/18 Dr. Ruby will be reading interventionist this weekend, she can be reached at [phone]. [facility] M: [phone] O:[phone] Subjective Date of service: 09/01/18 Principal diagnosis: cellulitis; afib; elevated INR Interval history: Patient seen and examined. Denied generalized, pain weakness or SOB. at bedside. Discharge antibiotic regimen discussed with and patient. Verbalized understanding. Objective - Exam Narrative Exam: Constitutional: Awake, alert. no acute distress Head, Ears, Nose: Normocephalic, atraumatic. External ears, nose normal Eyes: Conjunctivae/corneas clear. No icterus. No ptosis. Neck: Supple, no meningeal signs Oral: dentition food, no thrush . Cardiovascular: S1, S2 normal. Respiratory: Good air entry, clear to auscultation bilaterally GI: Soft, non-tender; bowel sounds normal. No peritoneal signs Musculoskeletal: Right foot edema, bilateral extremity weakness Skin: left foot wound, with purulent drainage, 3rd toe superficial wound, Right great toe ruptured blister, right leg wound superficial Hem/Lymphatic: No palpable cervical or supraclavicular nodes. No lymphangitis Psych: Mood ok. Affect normal Neurological: Awake, oriented to place, self and time - Constitutional Vitals: Vital Signs Temp Pulse Resp BP Pulse Ox 97.7 F 68 20 120/53 98 09/01/18 07:56 09/01/18 07:56 09/01/18 07:56 09/01/18 07:56 09/01/18 07:56 Temperature -Last 24 Hours Temperature 97.7 F Temperature 97.5 F Temperature 97.7 F Temperature 98.3 F - Labs CBC & Chem 7: 09/01/18 05:38 09/01/18 05:38 Labs: Abnormal lab results 08/31/18 08/31/18 08/31/18 Range/Units 07:57 11:43 13:27 WBC (4.5-11.0) K/mm3 RBC (3.65-5.03) M/mm3 Hgb (11.8-15.2) gm/dl Hct (35.5-45.6) % MCV (84-94) fl MCH (28-32) pg RDW (13.2-15.2) % Plt Count (140-440) K/mm3 Lymph % (Auto) (13.4-35.0) % Lymph # (1.2-5.4) K/mm3 Seg Neutrophils % (40.0-70.0) % Seg Neutrophils # (1.8-7.7) K/mm3 PT (12.2-14.9) Sec. INR (0.87-1.13) Heparin Anti-Xa Level < 0.10 L (0.3-0.7) U.I./ml Sodium (137-145) mmol/L Potassium (3.6-5.0) mmol/L Chloride (98-107) mmol/L BUN (9-20) mg/dL Creatinine (0.8-1.5) mg/dL Glucose (75-100) mg/dL POC Glucose 297 H 370 H (70-105) 08/31/18 08/31/18 09/01/18 Range/Units 16:53 21:19 05:38 WBC (4.5-11.0) K/mm3 RBC (3.65-5.03) M/mm3 Hgb (11.8-15.2) gm/dl Hct (35.5-45.6) % MCV (84-94) fl MCH (28-32) pg RDW (13.2-15.2) % Plt Count (140-440) K/mm3 Lymph % (Auto) (13.4-35.0) % Lymph # (1.2-5.4) K/mm3 Seg Neutrophils % (40.0-70.0) % Seg Neutrophils # (1.8-7.7) K/mm3 PT 16.1 H (12.2-14.9) Sec. INR 1.25 H (0.87-1.13) Heparin Anti-Xa Level (0.3-0.7) U.I./ml Sodium (137-145) mmol/L Potassium (3.6-5.0) mmol/L Chloride (98-107) mmol/L BUN (9-20) mg/dL Creatinine (0.8-1.5) mg/dL Glucose (75-100) mg/dL POC Glucose 291 H 150 H (70-105) 09/01/18 09/01/18 09/01/18 Range/Units 05:38 05:38 07:40 WBC 11.3 H (4.5-11.0) K/mm3 RBC 3.62 L (3.65-5.03) M/mm3 Hgb 9.1 L (11.8-15.2) gm/dl Hct 28.8 L (35.5-45.6) % MCV 80 L (84-94) fl MCH 25 L (28-32) pg RDW 20.9 H (13.2-15.2) % Plt Count 458 H (140-440) K/mm3 Lymph % (Auto) 7.5 L (13.4-35.0) % Lymph # 0.9 L (1.2-5.4) K/mm3 Seg Neutrophils % 81.0 H (40.0-70.0) % Seg Neutrophils # 9.1 H (1.8-7.7) K/mm3 PT (12.2-14.9) Sec. INR (0.87-1.13) Heparin Anti-Xa Level (0.3-0.7) U.I./ml Sodium 136 L (137-145) mmol/L Potassium 3.3 L (3.6-5.0) mmol/L Chloride 96.4 L (98-107) mmol/L BUN 46 H (9-20) mg/dL Creatinine 2.4 H (0.8-1.5) mg/dL Glucose 194 H (75-100) mg/dL POC Glucose 238 H (70-105)
[2018-09-01] MEDS: ceFAZolin 2 GM in NACL 0.9% 100 ML IV SCH ×2 (09:23→22:33)
[2018-09-01] MEDS: HumuLIN R SUB-Q SCH ×3 (09:23→17:16)
[2018-09-01] MEDS: HumaLOG SUB-Q SCH ×4 (09:24→22:53)
[2018-09-01] MEDS: LOPRESSOR PO SCH ×2 (09:24→22:34)
[2018-09-01] MEDS: PROTONIX IV SCH (09:26)
[2018-09-01] MEDS: LANOXIN PO SCH (09:26)
[2018-09-01] MEDS: URECHOLINE PO SCH ×2 (09:27→22:33)
[2018-09-01] MEDS: HALFPRIN EC PO SCH (09:27)
[2018-09-01] MEDS: MEGACE PO SCH (09:28)
[2018-09-01] MEDS: PROSCAR PO SCH (09:28)
--- NOTE | 2018-09-01 09:39 | Progress Note ---
Assessment and Plan Sepsis/cellulitis of the lower extremities PAD with ulceration S/p peripheral intervention yesterday A. fib Coumadin resumed with tx INR 2-3 Continue metoprolol 75 BID Anemia Stool occult positive Per GI, the patient has had prior endoscopic w/u, and declines further intervention at present, OK with resumption of warfarin cautiously, with close monitoring of CBC. ? NATALIA on CKD Nephrology following DM Hypokalemia / hypomag Currently stable cardiac status. S/p peripheral intervention yesterday. Coumadin resumed, cont ASA 81, no plavix, d/w Dr. Rojas. Nothing further to add from cardiac perspective at this time. Will sign off. Recommend pt follow up in our office with Dr. LEEROY Shi within 1-2 weeks of hospital discharge ([phone]). The patient has been seen in conjunction with Dr. George who agrees with the assessment and plan of care. Subjective Date of service: 09/01/18 Principal diagnosis: cellulitis; afib; elevated INR Interval history: pt resting in bed, no current cardiac complaints. at bedside. Objective Last Vital Signs Temp 97.7 F 09/01/18 07:56 Pulse 68 09/01/18 09:26 Resp 20 09/01/18 07:56 BP 120/53 09/01/18 07:56 Pulse Ox 97 09/01/18 08:37 - Physical Examination General: No Apparent Distress HEENT: Positive: PERRL Neck: Positive: neck supple, trachea midline Cardiac: Positive: irregularly irregular, S1/S2 Lungs: Positive: Decreased Breath Sounds Neuro: Positive: Grossly Intact Abdomen: Positive: Soft, Active Bowel Sounds Skin: Positive: Rash, Other (BLE wounds, cellulitis) Extremities: Present: edema, warm - Labs and Meds Coagulation 09/01/18 Range/Units 05:38 PT 16.1 H (12.2-14.9) Sec. INR 1.25 H (0.87-1.13) CBC 09/01/18 Range/Units 05:38 WBC 11.3 H (4.5-11.0) K/mm3 RBC 3.62 L (3.65-5.03) M/mm3 Hgb 9.1 L (11.8-15.2) gm/dl Hct 28.8 L (35.5-45.6) % Plt Count 458 H (140-440) K/mm3 Lymph # 0.9 L (1.2-5.4) K/mm3 [place] # 0.8 (0.0-0.8) K/mm3 Eos # 0.4 (0.0-0.4) K/mm3 Baso # 0.1 (0.0-0.1) K/mm3 Comprehensive Metabolic Panel 09/01/18 Range/Units 05:38 Sodium 136 L (137-145) mmol/L Potassium 3.3 L (3.6-5.0) mmol/L Chloride 96.4 L (98-107) mmol/L Carbon Dioxide 23 (22-30) mmol/L BUN 46 H (9-20) mg/dL Creatinine 2.4 H (0.8-1.5) mg/dL Glucose 194 H (75-100) mg/dL Calcium 8.9 (8.4-10.2) mg/dL - Imaging and Cardiology Echo: report reviewed ( 04/05/2018: Ejection fraction 52%, no significant valvular abnormalities noted)
--- NOTE | 2018-09-01 11:20 | Progress Note ---
Assessment and Plan Assessment and plan: Sepsis secondary to cellulitis of the lower extremities. - Improving. ID following. PVD Patient with nonhealing ulcerations to bilateral lower extremities left worse than the right. Lower extremity arterial duplex shows that he has some iliofemoral disease and also some tibial disease. An angiogram would be necessary to complete a revascularization. However, he has a history of a unilateral nephrectomy. Arterial duplex studies reveal multiple areas of stenosis. Patient appears to have most notably stenosis involving right femoral artery and right anterior tibial artery. Also, left anterior tibial artery as well as posterior tibial artery. A. fib - continue metoprolol - Coumadin was held for supratherapeutic INR, s/p viatmin k. - Resumed Coumadin per protocol. Right elbow fracture. Patient appears to have fracturing of medial compression plate. History of CVA - Mild residual right-sided weakness - Continue supportive care Congestive heart failure - Compensated, Patient is euvolemic - continue current medication regimen Anemia - FOBT is positive and GI consulted, No procedure needed for now DM with hyperglycemia - On novolin R NATALIA/CKD - Nephrology is following. Status post unilateral nephrectomy. He has a single kidney and has CKD Disposition - Continue inpatient care History Interval history: No new issues overnight Hospitalist Physical - Constitutional Vitals: Temp Pulse Resp BP Pulse Ox 97.7 F 68 20 120/53 97 09/01/18 07:56 09/01/18 09:26 09/01/18 07:56 09/01/18 07:56 09/01/18 08:37 General appearance: Present: obese - EENT Eyes: Present: PERRL, EOM intact ENT: hearing intact, clear oral mucosa, dentition normal - Neck Neck: Present: supple, normal ROM - Respiratory Respiratory effort: normal Respiratory: bilateral: CTA - Cardiovascular Rhythm: regular Heart Sounds: Present: S1 & S2. Absent: gallop, rub - Extremities Extremities: no ischemia, No edema, Full ROM - Abdominal General gastrointestinal: soft, non-tender, non-distended, normal bowel sounds - Integumentary Integumentary: Present: clear, warm, dry - Neurologic Neurologic: CNII-XII intact, moves all extremities Results - Labs CBC & Chem 7: 09/01/18 05:38 09/01/18 05:38 Labs: Laboratory Last Values WBC 11.3 K/mm3 (4.5-11.0) H 09/01/18 05:38 RBC 3.62 M/mm3 (3.65-5.03) L 09/01/18 05:38 Hgb 9.1 gm/dl (11.8-15.2) L 09/01/18 05:38 Hct 28.8 % (35.5-45.6) L 09/01/18 05:38 MCV 80 fl (84-94) L 09/01/18 05:38 MCH 25 pg (28-32) L 09/01/18 05:38 MCHC 32 % (32-34) 09/01/18 05:38 RDW 20.9 % (13.2-15.2) H 09/01/18 05:38 Plt Count 458 K/mm3 (140-440) H 09/01/18 05:38 Lymph % (Auto) 7.5 % (13.4-35.0) L 09/01/18 05:38 [place] % (Auto) 7.3 % (0.0-7.3) 09/01/18 05:38 Eos % (Auto) 3.7 % (0.0-4.3) 09/01/18 05:38 Baso % (Auto) 0.5 % (0.0-1.8) 09/01/18 05:38 Lymph # 0.9 K/mm3 (1.2-5.4) L 09/01/18 05:38 [place] # 0.8 K/mm3 (0.0-0.8) 09/01/18 05:38 Eos # 0.4 K/mm3 (0.0-0.4) 09/01/18 05:38 Baso # 0.1 K/mm3 (0.0-0.1) 09/01/18 05:38 Seg Neutrophils % 81.0 % (40.0-70.0) H 09/01/18 05:38 Seg Neutrophils # 9.1 K/mm3 (1.8-7.7) H 09/01/18 05:38 ESR 111 mm/Hr (0-20) 08/27/18 11:11 PT 16.1 Sec. (12.2-14.9) H 09/01/18 05:38 INR 1.25 (0.87-1.13) H 09/01/18 05:38 APTT 34.9 Sec. (24.2-36.6) 08/30/18 12:13 Heparin Anti-Xa Level < 0.10 U.I./ml (0.3-0.7) L 08/31/18 13:27 Sodium 136 mmol/L (137-145) L 09/01/18 05:38 Potassium 3.3 mmol/L (3.6-5.0) L 09/01/18 05:38 Chloride 96.4 mmol/L (98-107) L 09/01/18 05:38 Carbon Dioxide 23 mmol/L (22-30) 09/01/18 05:38 Anion Gap 20 mmol/L 09/01/18 05:38 BUN 46 mg/dL (9-20) H 09/01/18 05:38 Creatinine 2.4 mg/dL (0.8-1.5) H 09/01/18 05:38 Estimated GFR 27 ml/min 09/01/18 05:38 BUN/Creatinine Ratio 19 % 09/01/18 05:38 Glucose 194 mg/dL (75-100) H 09/01/18 05:38 POC Glucose 238 (70-105) H 09/01/18 07:40 Hemoglobin A1c 8.7 % (4-6) H 08/26/18 04:58 Calcium 8.9 mg/dL (8.4-10.2) 09/01/18 05:38 Magnesium 2.00 mg/dL (1.7-2.3) 08/30/18 09:08 Iron 18 ug/dL (49-181) L 08/29/18 05:11 TIBC 209 mcg/dL (250-450) L 08/29/18 05:11 Ferritin 264.4 ng/mL (13.0-400.0) 08/29/18 05:11 Total Creatine Kinase 116 units/L (55-170) 08/25/18 16:49 Troponin T 0.080 ng/mL (0.00-0.029) H 08/25/18 16:49 C-Reactive Protein 17.50 mg/dL (0.00-1.30) H 08/27/18 11:11 Triglycerides 121 mg/dL (2-149) 08/25/18 16:49 Cholesterol 105 mg/dL (50-199) 08/25/18 16:49 LDL Cholesterol Direct 58 mg/dL (50-130) 08/25/18 16:49 HDL Cholesterol 31 mg/dL (40-59) L 08/25/18 16:49 Cholesterol/HDL Ratio 3.38 % 08/25/18 16:49 Urine Color Yellow (Yellow) 08/26/18 12:55 Urine Turbidity Clear (Clear) 08/26/18 12:55 Urine pH 5.0 (5.0-7.0) 08/26/18 12:55 Ur Specific [place] 1.009 (1.003-1.030) 08/26/18 12:55 Urine Protein 30 mg/dl mg/dL (Negative) 08/26/18 12:55 Urine Glucose (UA) 50 mg/dL (Negative) 08/26/18 12:55 Urine Ketones Tr mg/dL (Negative) 08/26/18 12:55 Urine Blood Mod (Negative) 08/26/18 12:55 Urine Nitrite Neg (Negative) 08/26/18 12:55 Urine Bilirubin Neg (Negative) 08/26/18 12:55 Urine Urobilinogen < 2.0 mg/dL (<2.0) 08/26/18 12:55 Ur Leukocyte Esterase Neg (Negative) 08/26/18 12:55 Urine WBC (Auto) 4.0 /HPF (0.0-6.0) 08/26/18 12:55 Urine RBC (Auto) 7.0 /HPF (0.0-6.0) 08/26/18 12:55 U Epithel Cells (Auto) 1.0 /HPF (0-13.0) 08/26/18 12:55 Urine Mucus Few /HPF 08/26/18 12:55 Random Vancomycin 15.5 ug/mL (0-40.0) 08/27/18 04:03 Nutrition/Malnutrition Assess - Dietary Evaluation Nutrition/Malnutrition Findings: Nutrition Notes Start: 08/26/18 13:18 Freq: Status: Active Protocol: Document 08/31/18 13:08 CT (Rec: 08/31/18 13:39 CT [id number]) Co-Sign 08/31/18 13:08 RM Nutrition Notes Need for Assessment generated from: MD Order Initial or Follow up Reassessment Current Diagnosis CKD(stage I-IV) Diabetes Sepsis Hypertension Heart Failure Other Pertinent Diagnosis left foot wound, fluid overload Current Diet Renal Labs/Tests POC glucose 216 Pertinent Medications Lasix Coumadin Height 5 ft 9 in Weight 108.2 kg [place] Body Weight (lbs) 160.0 BMI 35.2 Subjective/Other Information RD consult for ONS recommendaion. Pt sedated at time of visit. Spoke with at bedside. She stated pt eating about half of meals and pt would likely drink a butter pecan flavored supplement and would like to try Brown. Burn Absent Trauma Absent #1 Nutrition Diagnosis Inadequate oral intake Diagnosis Progress(for reassessment Continues documentation) Is patient on ventilator? No Is Patient Ambulatory and/or Out of Bed No REE-([place]-confined to bed) 2210.172 Kcal/Kg value to use for calculation 16 Approximate Energy Requirements Using 1731 kcal/Kg Calculation Used for Recommendations Kcal/kg Additional Notes Protein needs are 87-109 PRO ( 0.8 -1.0 g/kg) Fluid needs are 1ml/kcal Nutrition Intervention Change Diet Order: continue Add Supplement/Snack (indicate name/kcal [place] Butter Pecan daily /protein ) Brown Provides kCal: 520 Provides Protein (gm) 22 Goal #1 Increase PO and ONS intake to meet at least 75% of kcal and PRO needs. Anticipated Discharge Needs: Renal/Cardiac Follow-Up By: 09/04/18 Additional Comments F/U: intakes
--- NOTE | 2018-09-01 12:13 | Progress Note ---
Subjective Principal diagnosis: cellulitis; afib; elevated INR Interval history: Patient was seen today for follow-up on multiple renal related issues Events of this hospitalization noted Patient noted to be hypokalemic Renal function currently stable Patient denies having any chest pain pressure or shortness of breath Vitals labs intake output medications were reviewed Social history: Reviewed Allergies: Reviewed Family history: Reviewed Physical examination HEENT: Oral mucosa moist no pallor or icterus Neck: Supple no JVD Chest: Clear to auscultation anteriorly CVS: Regular rate and rhythm S1 and S2 heard Abdomen: Soft nontender no suprapubic masses no organomegaly appreciable Extremity: Dry skin less than 1+ peripheral edema Musculoskeletal: No joint effusion noted in knees and ankle Neurological: Alert awake Dermatology: No petechial rashes Psychiatry: No evidence of any agitation and aggression noted Assessment and plan Chronic kidney disease renal function has been stable between 2.2 and 2.4 c reatinine was 2.7 on August 28 Hypokalemia: Mild consistent patient will need potassium replacement magnesium level was 2.0 Iron deficiency saturation around 18% with hemoglobin of 9.1 but stable at this time to follow Blood culture has been negative for last 4 days wound culture showed Staphylococcus aureus Renal ultrasonogram obtained on August 28, shows that patient is status post nephrectomy Hypokalemia: Consider adding spironolactone with congestive heart failure Prevoid bladder volume was 300 mL no evidence of right-sided hydronephrosis history of peripheral arterial disease, atrial fibrillation, history of CVA, congestive heart failure currently compensated Patient was adequately counseled and educated regarding multiple renal related issues Pertinent lab findings were discussed with patient, patient does exhibit good understanding of renal issues We'll continue to follow and make recommendation from renal standpoint Objective - Vital Signs Vital signs: Vital Signs - 12hr 09/01/18 09/01/18 09/01/18 03:01 07:56 08:37 Temperature 97.5 F L 97.7 F Pulse Rate 68 Respiratory 18 20 Rate Blood Pressure 115/46 120/53 O2 Sat by Pulse 98 97 Oximetry 09/01/18 09/01/18 09:24 09:26 Temperature Pulse Rate 68 68 Respiratory Rate Blood Pressure O2 Sat by Pulse Oximetry - Lab 09/01/18 05:38 09/01/18 05:38 Most recent lab results Calcium 8.9 mg/dL (8.4-10.2) 09/01/18 05:38 Magnesium 2.00 mg/dL (1.7-2.3) 08/30/18 09:08 Medications & Allergies - Medications Allergies/Adverse Reactions: Allergies No Known Allergies Allergy (Unverified 08/25/18 16:05) Home Medications: Home Medications Medication Instructions Recorded Confirmed Last Taken Type Bethanechol 25 mg PO BID 08/25/18 08/26/18 08/24/18 12:00 History Digoxin [Lanoxin] 0.125 mg PO DAILY 08/25/18 08/25/18 08/25/18 History Finasteride [Proscar] 5 mg PO QDAY 08/25/18 08/25/18 08/25/18 History Furosemide [Lasix TAB] 40 mg PO BID 08/25/18 08/25/18 08/25/18 History Insulin Regular,Human U-500(Nf 90 - 110 units SUB-Q TID 08/25/18 08/25/18 08/25/18 History [HumuLIN R] Metoprolol [Lopressor TAB] 75 mg PO BID 08/25/18 08/25/18 08/25/18 History Pravastatin [Pravachol] 80 mg PO QHS 08/25/18 08/25/18 08/24/18 History Tamsulosin HCl [Flomax] 0.8 mg PO HS 08/25/18 08/25/18 08/24/18 History Warfarin [Coumadin] 3.75 mg PO QDAY 08/25/18 08/25/18 08/24/18 History cephALEXin [Keflex] 500 mg PO Q12HR 08/25/18 08/25/18 08/25/18 History metOLazone [Metolazone] 2.5 mg PO QDAY 08/25/18 08/25/18 08/25/18 History Active Medications: Generic Name Dose Route Start Last Admin Trade Name Freq PRN Reason Stop Dose Admin Aspirin 81 mg 09/01/18 10:00 09/01/18 09:27 Halfprin Ec PO 81 mg QDAY JOAN Administration Bethanechol Chloride 25 mg 08/26/18 10:00 09/01/18 09:27 Urecholine PO 25 mg BID JOAN Administration Digoxin 0.125 mg 08/26/18 10:00 09/01/18 09:26 Lanoxin PO 0.125 mg DAILY JOAN Administration Finasteride 5 mg 08/26/18 10:00 09/01/18 09:28 Proscar PO 5 mg QDAY JOAN Administration Cefazolin Sodium 2 gm/ Sodium 100 mls @ 200 mls/hr 08/29/18 22:00 09/01/18 09:23 Chloride IV 200 mls/hr Q12HR JOAN Administration Potassium Chloride/Sodium Chloride 20 meq in 1,000 mls @ 75 mls/hr 08/31/18 10:00 Ns/Kcl 20meq IV DIRECT JOAN Insulin Human Lispro 0 unit 08/26/18 07:30 09/01/18 09:24 Humalog SUB-Q 4 unit ACHS JOAN Administration Protocol Insulin Human Regular 40 units 08/28/18 12:30 09/01/18 09:23 Humulin R SUB-Q 40 units AC JOAN Administration Megestrol Acetate 400 mg 08/27/18 14:00 09/01/18 09:28 Megace PO Not Given QDAY [facility] Metoprolol Tartrate 75 mg 08/26/18 10:00 09/01/18 09:24 Lopressor PO 75 mg BID JOAN Administration Pantoprazole Sodium 40 mg 08/28/18 11:00 09/01/18 09:26 Protonix IV 40 mg QDAY [facility] Administration Pravastatin Sodium 80 mg 08/26/18 22:00 08/31/18 22:17 Pravachol PO 80 mg QHS JOAN Administration Tamsulosin HCl 0.8 mg 08/26/18 22:00 08/31/18 22:16 Flomax PO 0.8 mg HS JOAN Administration Warfarin Sodium 4 mg 09/01/18 17:00 Coumadin PO DAILY@1700 [facility]
--- NOTE | 2018-09-01 16:24 | Progress Note ---
Assessment and Plan Patient with significant peripheral vascular disease as well as renal failure will need continued wound care as he leaves the hospital. Subjective Date of service: 09/01/18 Principal diagnosis: cellulitis; afib; elevated INR Interval history: Patient status post left lower extremity revascularization procedure. His lower leg is warm. No complaints of pain in his left leg. Objective - Constitutional Vitals: Vital Signs - 12hr 09/01/18 09/01/18 09/01/18 07:56 08:37 09:24 Temperature 97.7 F Pulse Rate 68 68 Respiratory 20 Rate Blood Pressure 120/53 O2 Sat by Pulse 98 97 Oximetry 09/01/18 09/01/18 09:26 13:37 Temperature 97.9 F Pulse Rate 68 70 Respiratory 20 Rate Blood Pressure 113/45 O2 Sat by Pulse 98 Oximetry General appearance: Present: no acute distress - EENT Eyes: EOM intact ENT: hearing intact - Neck Neck: supple, normal ROM - Respiratory Respiratory effort: normal - Breasts Breasts: deferred Extremities: abnormal - Gastrointestinal General gastrointestinal: Present: deferred Rectal Exam: deferred - Genitourinary Male genitourinary: deferred - Psychiatric Psychiatric: cooperative - Labs CBC & Chem 7: 09/01/18 05:38 09/01/18 05:38 Labs: Abnormal lab results 08/31/18 08/31/18 09/01/18 Range/Units 16:53 21:19 05:38 WBC (4.5-11.0) K/mm3 RBC (3.65-5.03) M/mm3 Hgb (11.8-15.2) gm/dl Hct (35.5-45.6) % MCV (84-94) fl MCH (28-32) pg RDW (13.2-15.2) % Plt Count (140-440) K/mm3 Lymph % (Auto) (13.4-35.0) % Lymph # (1.2-5.4) K/mm3 Seg Neutrophils % (40.0-70.0) % Seg Neutrophils # (1.8-7.7) K/mm3 PT 16.1 H (12.2-14.9) Sec. INR 1.25 H (0.87-1.13) Sodium (137-145) mmol/L Potassium (3.6-5.0) mmol/L Chloride (98-107) mmol/L BUN (9-20) mg/dL Creatinine (0.8-1.5) mg/dL Glucose (75-100) mg/dL POC Glucose 291 H 150 H (70-105) 09/01/18 09/01/18 09/01/18 Range/Units 05:38 05:38 07:40 WBC 11.3 H (4.5-11.0) K/mm3 RBC 3.62 L (3.65-5.03) M/mm3 Hgb 9.1 L (11.8-15.2) gm/dl Hct 28.8 L (35.5-45.6) % MCV 80 L (84-94) fl MCH 25 L (28-32) pg RDW 20.9 H (13.2-15.2) % Plt Count 458 H (140-440) K/mm3 Lymph % (Auto) 7.5 L (13.4-35.0) % Lymph # 0.9 L (1.2-5.4) K/mm3 Seg Neutrophils % 81.0 H (40.0-70.0) % Seg Neutrophils # 9.1 H (1.8-7.7) K/mm3 PT (12.2-14.9) Sec. INR (0.87-1.13) Sodium 136 L (137-145) mmol/L Potassium 3.3 L (3.6-5.0) mmol/L Chloride 96.4 L (98-107) mmol/L BUN 46 H (9-20) mg/dL Creatinine 2.4 H (0.8-1.5) mg/dL Glucose 194 H (75-100) mg/dL POC Glucose 238 H (70-105) 09/01/18 Range/Units 11:34 WBC (4.5-11.0) K/mm3 RBC (3.65-5.03) M/mm3 Hgb (11.8-15.2) gm/dl Hct (35.5-45.6) % MCV (84-94) fl MCH (28-32) pg RDW (13.2-15.2) % Plt Count (140-440) K/mm3 Lymph % (Auto) (13.4-35.0) % Lymph # (1.2-5.4) K/mm3 Seg Neutrophils % (40.0-70.0) % Seg Neutrophils # (1.8-7.7) K/mm3 PT (12.2-14.9) Sec. INR (0.87-1.13) Sodium (137-145) mmol/L Potassium (3.6-5.0) mmol/L Chloride (98-107) mmol/L BUN (9-20) mg/dL Creatinine (0.8-1.5) mg/dL Glucose (75-100) mg/dL POC Glucose 266 H (70-105) Medications & Allergies - Medications Allergies/Adverse Reactions: Allergies No Known Allergies Allergy (Unverified 08/25/18 16:05) Home Medications: Home Medications Medication Instructions Recorded Confirmed Last Taken Type Bethanechol 25 mg PO BID 08/25/18 08/26/18 08/24/18 12:00 History Digoxin [Lanoxin] 0.125 mg PO DAILY 08/25/18 08/25/18 08/25/18 History Finasteride [Proscar] 5 mg PO QDAY 08/25/18 08/25/18 08/25/18 History Furosemide [Lasix TAB] 40 mg PO BID 08/25/18 08/25/18 08/25/18 History Insulin Regular,Human U-500(Nf 90 - 110 units SUB-Q TID 08/25/18 08/25/18 08/25/18 History [HumuLIN R] Metoprolol [Lopressor TAB] 75 mg PO BID 08/25/18 08/25/18 08/25/18 History Pravastatin [Pravachol] 80 mg PO QHS 08/25/18 08/25/18 08/24/18 History Tamsulosin HCl [Flomax] 0.8 mg PO HS 08/25/18 08/25/18 08/24/18 History Warfarin [Coumadin] 3.75 mg PO QDAY 08/25/18 08/25/18 08/24/18 History cephALEXin [Keflex] 500 mg PO Q12HR 08/25/18 08/25/18 08/25/18 History metOLazone [Metolazone] 2.5 mg PO QDAY 08/25/18 08/25/18 08/25/18 History Active Medications: Generic Name Dose Route Start Last Admin Trade Name Freq PRN Reason Stop Dose Admin Aspirin 81 mg 09/01/18 10:00 09/01/18 09:27 Halfprin Ec PO 81 mg QDAY [facility] Administration Bethanechol Chloride 25 mg 08/26/18 10:00 09/01/18 09:27 Urecholine PO 25 mg BID JOAN Administration Digoxin 0.125 mg 08/26/18 10:00 09/01/18 09:26 Lanoxin PO 0.125 mg DAILY JOAN Administration Finasteride 5 mg 08/26/18 10:00 09/01/18 09:28 Proscar PO 5 mg QDAY [facility] Administration Cefazolin Sodium 2 gm/ Sodium 100 mls @ 200 mls/hr 08/29/18 22:00 09/01/18 09:23 Chloride IV 200 mls/hr Q12HR JOAN Administration Potassium Chloride/Sodium Chloride 20 meq in 1,000 mls @ 75 mls/hr 08/31/18 10:00 Ns/Kcl 20meq IV DIRECT [facility] Insulin Human Lispro 0 unit 08/26/18 07:30 09/01/18 12:33 [facility] Administration Protocol Insulin Human Regular 40 units 08/28/18 12:30 09/01/18 12:34 Humulin R SUB-Q 40 units AC [facility] Administration Megestrol Acetate 400 mg 08/27/18 14:00 09/01/18 09:28 Megace PO Not Given QDAY [facility] Metoprolol Tartrate 75 mg 08/26/18 10:00 09/01/18 09:24 Lopressor PO 75 mg BID JOAN Administration Pantoprazole Sodium 40 mg 09/02/18 10:00 Protonix PO DAILY [facility] Pravastatin Sodium 80 mg 08/26/18 22:00 08/31/18 22:17 Pravachol PO 80 mg QHS [facility] Administration Spironolactone 25 mg 09/02/18 10:00 Aldactone PO QDAY [facility] Tamsulosin HCl 0.8 mg 08/26/18 22:00 08/31/18 22:16 Flomax PO 0.8 mg HS [facility] Administration Warfarin Sodium 4 mg 09/01/18 17:00 Coumadin PO DAILY@1700 [facility]
[2018-09-01] MEDS: COUMADIN PO SCH (17:15)
--- NOTE | 2018-09-01 17:26 | Event Note ---
Date: 09/01/18 Saw patient. removed pressure dressing. Groin without pseudoaneurysm or bleeding. Palpable left dorsalis pedis. Provided card to patient and spouse.
--- NOTE | 2018-09-01 18:40 | Consultation ---
History of Present Illness - [facility] Consult date: 08/31/18 Consult reason: joint pain History of present illness: 67-year-old male with multiple medical problems including, Obesity, diabetes, hypertension, atrial fibrillation, reportedly on Coumadin C daily, reportedly stage III... Patient states he was dropped accidentally by the EMT personnel prior to admission currently complains of right elbow pain and swelling past medical history is significant for a previous open reduction internal fixation right distal humerus years ago Past History Past Medical History: atrial fib (Chronic kidney stage 3), diabetes, other (as per HPI) Past Surgical History: Other (unilateral nephrectomy) Social history: . denies: smoking, alcohol abuse Family history: no significant family history Medications and Allergies Allergies Allergy/AdvReac Type Severity Reaction Status Date / Time No Known Allergies Allergy Unverified 08/25/18 16:05 Home Medications Medication Instructions Recorded Confirmed Last Taken Type Bethanechol 25 mg PO BID 08/25/18 08/26/18 08/24/18 12:00 History Digoxin [Lanoxin] 0.125 mg PO DAILY 08/25/18 08/25/18 08/25/18 History Finasteride [Proscar] 5 mg PO QDAY 08/25/18 08/25/18 08/25/18 History Furosemide [Lasix TAB] 40 mg PO BID 08/25/18 08/25/18 08/25/18 History Insulin Regular,Human U-500(Nf 90 - 110 units SUB-Q TID 08/25/18 08/25/18 08/25/18 History [HumuLIN R] Metoprolol [Lopressor TAB] 75 mg PO BID 08/25/18 08/25/18 08/25/18 History Pravastatin [Pravachol] 80 mg PO QHS 08/25/18 08/25/18 08/24/18 History Tamsulosin HCl [Flomax] 0.8 mg PO HS 08/25/18 08/25/18 08/24/18 History Warfarin [Coumadin] 3.75 mg PO QDAY 08/25/18 08/25/18 08/24/18 History cephALEXin [Keflex] 500 mg PO Q12HR 08/25/18 08/25/18 08/25/18 History metOLazone [Metolazone] 2.5 mg PO QDAY 08/25/18 08/25/18 08/25/18 History Active Meds: Active Medications Aspirin (Halfprin Ec) 81 mg PO QDAY [facility] Last Admin: 09/01/18 09:27 Dose: 81 mg Documented by: Bethanechol Chloride (Urecholine) 25 mg PO BID [facility] Last Admin: 09/01/18 09:27 Dose: 25 mg Documented by: Digoxin (Lanoxin) 0.125 mg PO DAILY [facility] Last Admin: 09/01/18 09:26 Dose: 0.125 mg Documented by: Finasteride (Proscar) 5 mg PO QDAY [facility] Last Admin: 09/01/18 09:28 Dose: 5 mg Documented by: Cefazolin Sodium 2 gm/ Sodium (Chloride) 100 mls @ 200 mls/hr IV Q12HR [facility] Last Admin: 09/01/18 09:23 Dose: 200 mls/hr Documented by: Potassium Chloride/Sodium Chloride (Ns/Kcl 20meq) 20 meq in 1,000 mls @ 75 mls/hr IV DIRECT [facility] Insulin Human Lispro (Humalog) 0 unit SUB-Q [facility]; Protocol Last Admin: 09/01/18 17:16 Dose: 6 unit Documented by: Insulin Human Regular (Humulin R) 40 units SUB-Q [facility] Last Admin: 09/01/18 17:16 Dose: 40 units Documented by: Megestrol Acetate (Megace) 400 mg PO QDAY [facility] Last Admin: 09/01/18 09:28 Dose: Not Given Documented by: Metoprolol Tartrate (Lopressor) 75 mg PO BID [facility] Last Admin: 09/01/18 09:24 Dose: 75 mg Documented by: Pantoprazole Sodium (Protonix) 40 mg PO DAILY [facility] Pravastatin Sodium (Pravachol) 80 mg PO QHS [facility] Last Admin: 08/31/18 22:17 Dose: 80 mg Documented by: Spironolactone (Aldactone) 25 mg PO QDAY [facility] Tamsulosin HCl (Flomax) 0.8 mg PO [facility] Last Admin: 08/31/18 22:16 Dose: 0.8 mg Documented by: Warfarin Sodium (Coumadin) 4 mg PO DAILY@1700 [facility] Last Admin: 09/01/18 17:15 Dose: 4 mg Documented by: Physical Examination - Physical exam Narrative exam: Significant musculoskeletal examination at this time revealed [id number] swelling left elbow forearm there is no bruising noted no deformity sugars is somewhat tender to palpation passive range of motion he can flex to 100 extension to with 45 again skin is intact with good capillary refill distally Plain x-rays of the right elbow were reviewed by me and show no acute fracture however patient was noted to have hardware failure or fracture at the lateral plate again there is no evidence of any acute injury at this time Assessment and Plan Right elbow pain most likely contusion versus sprain Recommendation physical therapy for range of motion and strengthening exercises patient may also use a arm sling as needed
[2018-09-01] MEDS: PRAVACHOL PO SCH (22:33)
[2018-09-01] MEDS: FLOMAX PO SCH (22:33)
[2018-09-02 05:57] LABS: Basophils # (Auto) 0.1 K/mm3 (0.0-0.1); Basophils % (Auto) 0.6 % (0.0-1.8); Eosinophils % (Auto) 8.4 % (0.0-4.3); Hematocrit 26.7 % (35.5-45.6); Hemoglobin 8.4 gm/dl (11.8-15.2); Lymphocytes % (Auto) 8.6 % (13.4-35.0); Mean Corpuscular HGB Conc 32 % (32-34); Mean Corpuscular Volume 81 fl (84-94); Monocytes % (Auto) 8.4 % (0.0-7.3); Platelet Count 459 K/mm3 (140-440); Red Blood Count 3.29 M/mm3 (3.65-5.03)
[2018-09-02 06:00] LABS: Red Cell Distribution Width 21.4 % (13.2-15.2)
[2018-09-02 06:04] LABS: INR 1.49 (0.87-1.13)
[2018-09-02 06:14] LABS: Calcium 8.3 mg/dL (8.4-10.2)
[2018-09-02] MEDS: HumuLIN R SUB-Q SCH ×3 (08:36→17:13)
[2018-09-02] MEDS: HumaLOG SUB-Q SCH ×4 (08:37→22:57)
[2018-09-02] MEDS: ALDACTONE PO SCH (09:38)
[2018-09-02] MEDS: HALFPRIN EC PO SCH (09:38)
[2018-09-02] MEDS: PROSCAR PO SCH (09:38)
[2018-09-02] MEDS: URECHOLINE PO SCH ×2 (09:39→22:56)
[2018-09-02] MEDS: LANOXIN PO SCH (09:39)
[2018-09-02] MEDS: PROTONIX PO SCH (09:39)
[2018-09-02] MEDS: LOPRESSOR PO SCH ×2 (09:39→23:05)
[2018-09-02] MEDS: MEGACE PO SCH (09:41)
[2018-09-02] MEDS: ceFAZolin 2 GM in NACL 0.9% 100 ML IV SCH ×2 (09:41→23:00)
--- NOTE | 2018-09-02 11:06 | Progress Note ---
Subjective Principal diagnosis: cellulitis; afib; elevated INR Interval history: Patient was seen today for follow-up on multiple renal related issues patient wants to know when he can go home Patient denies having any chest pain pressure or shortness of breath Vitals labs intake output medications were reviewed Social history: Reviewed Allergies: Reviewed Family history: Reviewed Physical examination HEENT: Oral mucosa moist no pallor or icterus Neck: Supple no JVD Chest: Clear to auscultation anteriorly CVS: Regular rate and rhythm S1 and S2 heard Abdomen: Soft nontender no suprapubic masses no organomegaly appreciable Extremity: Dry skin less than 1+ peripheral edema Musculoskeletal: No joint effusion noted in knees and ankle Neurological: Alert awake Dermatology: No petechial rashes Psychiatry: No evidence of any agitation and aggression noted Assessment and plan Renal function: Remained stable Hypokalemia we'll give potassium replacement will start the patient on spironolactone Patient is overall stable from renal standpoint difficulty voiding, 300 cc of urine in the bladder Order for another bladder scan today, if elevated consider urology evaluation Iron deficiency saturation around 18% with hemoglobin of 9.1 but stable at this time to follow Blood culture has been negative for last 4 days wound culture showed Staphylococcus aureus Renal ultrasonogram obtained on August 28, shows that patient is status post nephrectomy Hypokalemia: Added spironolactone Prevoid bladder volume was 300 mL no evidence of right-sided hydronephrosis history of peripheral arterial disease, atrial fibrillation, history of CVA, congestive heart failure currently compensated Patient was adequately counseled and educated regarding multiple renal related issues Pertinent lab findings were discussed with patient, patient does exhibit good understanding of renal issues We'll continue to follow and make recommendation from renal standpoint Objective - Vital Signs Vital signs: Vital Signs - 12hr 09/02/18 09/02/18 09/02/18 01:18 07:29 07:58 Temperature 98.2 F 97.8 F Pulse Rate 59 L 79 Respiratory 18 20 Rate Blood Pressure 137/47 120/61 O2 Sat by Pulse 99 93 95 Oximetry 09/02/18 09/02/18 09:38 09:39 Temperature Pulse Rate 79 79 Respiratory Rate Blood Pressure 120/61 120/61 O2 Sat by Pulse Oximetry - Lab 09/02/18 05:21 09/02/18 05:21 Most recent lab results Calcium 8.3 mg/dL (8.4-10.2) L 09/02/18 05:21 Magnesium 2.00 mg/dL (1.7-2.3) 08/30/18 09:08 Medications & Allergies - Medications Allergies/Adverse Reactions: Allergies No Known Allergies Allergy (Unverified 08/25/18 16:05) Home Medications: Home Medications Medication Instructions Recorded Confirmed Last Taken Type Bethanechol 25 mg PO BID 08/25/18 08/26/18 08/24/18 12:00 History Digoxin [Lanoxin] 0.125 mg PO DAILY 08/25/18 08/25/18 08/25/18 History Finasteride [Proscar] 5 mg PO QDAY 08/25/18 08/25/18 08/25/18 History Furosemide [Lasix TAB] 40 mg PO BID 08/25/18 08/25/18 08/25/18 History Insulin Regular,Human U-500(Nf 90 - 110 units SUB-Q TID 08/25/18 08/25/18 08/25/18 History [HumuLIN R] Metoprolol [Lopressor TAB] 75 mg PO BID 08/25/18 08/25/18 08/25/18 History Pravastatin [Pravachol] 80 mg PO QHS 08/25/18 08/25/18 08/24/18 History Tamsulosin HCl [Flomax] 0.8 mg PO HS 08/25/18 08/25/18 08/24/18 History Warfarin [Coumadin] 3.75 mg PO QDAY 08/25/18 08/25/18 08/24/18 History cephALEXin [Keflex] 500 mg PO Q12HR 08/25/18 08/25/18 08/25/18 History metOLazone [Metolazone] 2.5 mg PO QDAY 08/25/18 08/25/18 08/25/18 History Active Medications: Generic Name Dose Route Start Last Admin Trade Name Freq PRN Reason Stop Dose Admin Aspirin 81 mg 09/01/18 10:00 09/02/18 09:38 Halfprin Ec PO 81 mg QDAY JOAN Administration Bethanechol Chloride 25 mg 08/26/18 10:00 09/02/18 09:39 Urecholine PO 25 mg BID JOAN Administration Digoxin 0.125 mg 08/26/18 10:00 09/02/18 09:39 Lanoxin PO 0.125 mg DAILY JOAN Administration Finasteride 5 mg 08/26/18 10:00 09/02/18 09:38 Proscar PO 5 mg QDAY [facility] Administration Cefazolin Sodium 2 gm/ Sodium 100 mls @ 200 mls/hr 08/29/18 22:00 09/02/18 09:41 Chloride IV 200 mls/hr Q12HR JOAN Administration Potassium Chloride/Sodium Chloride 20 meq in 1,000 mls @ 75 mls/hr 08/31/18 10:00 Ns/Kcl 20meq IV DIRECT [facility]AN Insulin Human Lispro 0 unit 08/26/18 07:30 09/02/18 08:37 Humalog SUB-Q 10 unit ACHS JOAN Administration Protocol Insulin Human Regular 40 units 08/28/18 12:30 09/02/18 08:36 Humulin R SUB-Q 40 units AC JOAN Administration Megestrol Acetate 400 mg 08/27/18 14:00 09/02/18 09:41 Megace PO Not Given QDAY [facility] Metoprolol Tartrate 75 mg 08/26/18 10:00 09/02/18 09:39 Lopressor PO 75 mg BID JOAN Administration Pantoprazole Sodium 40 mg 09/02/18 10:00 09/02/18 09:39 Protonix PO 40 mg DAILY JOAN Administration Pravastatin Sodium 80 mg 08/26/18 22:00 09/01/18 22:33 Pravachol PO 80 mg QHS JOAN Administration Spironolactone 25 mg 09/02/18 10:00 09/02/18 09:38 Aldactone PO 25 mg QDAY JOAN Administration Tamsulosin HCl 0.8 mg 08/26/18 22:00 09/01/18 22:33 Flomax PO 0.8 mg HS JOAN Administration Warfarin Sodium 4 mg 09/01/18 17:00 09/01/18 17:15 Coumadin PO 4 mg DAILY@1700 JOAN Administration
--- NOTE | 2018-09-02 11:27 | Progress Note ---
Assessment and Plan Assessment and plan: Sepsis secondary to cellulitis of the lower extremities. - Improving. ID following. PVD Patient with nonhealing ulcerations to bilateral lower extremities left worse than the right. Lower extremity arterial duplex shows that he has some iliofemoral disease and also some tibial disease. An angiogram would be necessary to complete a revascularization. However, he has a history of a unilateral nephrectomy. Arterial duplex studies reveal multiple areas of stenosis. Patient appears to have most notably stenosis involving right femoral artery and right anterior tibial artery. Also, left anterior tibial artery as well as posterior tibial artery. A. fib - continue metoprolol - Coumadin was held for supratherapeutic INR, s/p viatmin k. - Resumed Coumadin per protocol. Right elbow fracture. Patient appears to have fracturing of medial compression plate. History of CVA - Mild residual right-sided weakness - Continue supportive care Congestive heart failure - Compensated, Patient is euvolemic - continue current medication regimen Anemia - FOBT is positive and GI consulted, No procedure needed for now DM with hyperglycemia - On novolin R NATALIA/CKD - Nephrology is following. Status post unilateral nephrectomy. He has a single kidney and has CKD Disposition - Anticipate discharge in a.m. History Interval history: This patient is a 67 year old male with a past medical history of obesity, diabetes, hypertension and atrial fibrillation, who presented in the ED on 08/25/18 with complaints of global weakness, recurrent falls, malaise and fatigue. He reported decreased urination, but no bladder or bowel retention or incontinence. Upon further exam he was found to have a large open wound on the dorsal aspect of his left foot for 2 days prior to admission. On admission WBC 16.6, Creatinine 2.2, Temperature 97.5, HR 147, BP 121/62, U/A showed no evidence of UTI, Chest xray shows mild congestive failure verses less likely infectious interstitial infiltrates. No definite effusion. Foot xray shows possible nondisplaced fracture of the left 2nd toe middle phalanx. Tibia/Fibula xray show degenerative arthritis left ankle. No definite fracture or dislocation left tibia or fibula. The patient was admitted with diagnosis of sepsis s econdary to cellulitis of the lower extremities. The patient was seen by ID in consultation who arranged for appropriate antibiotics. The patient also saw cardiology in consultation for atrial fibrillation with supratherapeutic INR. The patient was noted to also have anemia with occult positive stool. GI saw the patient in consultation and reported that the patient had a prior endoscopic workup and declined further intervention. GI recommended resumption of Coumadin and close monitoring of CBC. Other consultation to the hospital stay included acute kidney injury on chronic kidney disease. Patient was seen by nephrology. Nephrology monitor the patient with regards to volume status and serum creatinine improved slowly. Patient initially was noted to have volume overload that responded to diuretics. Once volume overload resolved with diuretics. With regards to the lower extremity cellulitis, patient had evidence of peripheral arterial disease with ulceration. He was noted to have nonhealing ulcerations to bilateral lower extremities left greater than right. Vascular surgery recommended lower extremity arterial duplex which revealed iliofemoral disease and tibial disease. Once the renal insufficiency improved, vascular surgery performed lower extremity revascularization procedure. Patient tolerated the procedure well. Orthopedics also saw the patient for the fracture of the toe and an incidental finding on x-ray with compression plate fracture/failure but felt that there was no need for intervention and nothing acute. Hospitalist Physical - Constitutional Vitals: Temp Pulse Resp BP Pulse Ox 97.8 F 79 20 120/61 95 09/02/18 07:29 09/02/18 09:39 09/02/18 07:29 09/02/18 09:39 09/02/18 07:58 General appearance: Present: no acute distress - EENT Eyes: Present: PERRL, EOM intact ENT: hearing intact, clear oral mucosa, dentition normal - Neck Neck: Present: supple, normal ROM - Respiratory Respiratory effort: normal Respiratory: bilateral: CTA - Cardiovascular Rhythm: regular Heart Sounds: Present: S1 & S2. Absent: gallop, rub - Extremities Extremities: no ischemia, No edema, Full ROM - Abdominal General gastrointestinal: soft, non-tender, non-distended, normal bowel sounds - Integumentary Integumentary: Present: clear, warm, dry - Neurologic Neurologic: CNII-XII intact, moves all extremities Results - Labs CBC & Chem 7: 09/02/18 05:21 09/02/18 05:21 Labs: Laboratory Last Values WBC 12.0 K/mm3 (4.5-11.0) H 09/02/18 05:21 RBC 3.29 M/mm3 (3.65-5.03) L 09/02/18 05:21 Hgb 8.4 gm/dl (11.8-15.2) L 09/02/18 05:21 Hct 26.7 % (35.5-45.6) L 09/02/18 05:21 MCV 81 fl (84-94) L 09/02/18 05:21 MCH 26 pg (28-32) L 09/02/18 05:21 MCHC 32 % (32-34) 09/02/18 05:21 RDW 21.4 % (13.2-15.2) H 09/02/18 05:21 Plt Count 459 K/mm3 (140-440) H 09/02/18 05:21 Lymph % (Auto) 8.6 % (13.4-35.0) L 09/02/18 05:21 Ward % (Auto) 8.4 % (0.0-7.3) H 09/02/18 05:21 Eos % (Auto) 8.4 % (0.0-4.3) H 09/02/18 05:21 Baso % (Auto) 0.6 % (0.0-1.8) 09/02/18 05:21 Lymph # 1.0 K/mm3 (1.2-5.4) L 09/02/18 05:21 Ward # 1.0 K/mm3 (0.0-0.8) H 09/02/18 05:21 Eos # 1.0 K/mm3 (0.0-0.4) H 09/02/18 05:21 Baso # 0.1 K/mm3 (0.0-0.1) 09/02/18 05:21 Seg Neutrophils % 74.0 % (40.0-70.0) H 09/02/18 05:21 Seg Neutrophils # 8.9 K/mm3 (1.8-7.7) H 09/02/18 05:21 ESR 111 mm/Hr (0-20) 08/27/18 11:11 PT 18.4 Sec. (12.2-14.9) H 09/02/18 05:21 INR 1.49 (0.87-1.13) H 09/02/18 05:21 APTT 34.9 Sec. (24.2-36.6) 08/30/18 12:13 Heparin Anti-Xa Level < 0.10 U.I./ml (0.3-0.7) L 08/31/18 13:27 Sodium 133 mmol/L (137-145) L 09/02/18 05:21 Potassium 3.4 mmol/L (3.6-5.0) L 09/02/18 05:21 Chloride 94.4 mmol/L (98-107) L 09/02/18 05:21 Carbon Dioxide 23 mmol/L (22-30) 09/02/18 05:21 Anion Gap 19 mmol/L 09/02/18 05:21 BUN 49 mg/dL (9-20) H 09/02/18 05:21 Creatinine 2.4 mg/dL (0.8-1.5) H 09/02/18 05:21 Estimated GFR 27 ml/min 09/02/18 05:21 BUN/Creatinine Ratio 20 % 09/02/18 05:21 Glucose 385 mg/dL (75-100) H 09/02/18 05:21 POC Glucose 413 (70-105) H 09/02/18 07:34 Hemoglobin A1c 8.7 % (4-6) H 08/26/18 04:58 Calcium 8.3 mg/dL (8.4-10.2) L 09/02/18 05:21 Magnesium 2.00 mg/dL (1.7-2.3) 08/30/18 09:08 Iron 18 ug/dL (49-181) L 08/29/18 05:11 TIBC 209 mcg/dL (250-450) L 08/29/18 05:11 Ferritin 264.4 ng/mL (13.0-400.0) 08/29/18 05:11 Total Creatine Kinase 116 units/L (55-170) 08/25/18 16:49 Troponin T 0.080 ng/mL (0.00-0.029) H 08/25/18 16:49 C-Reactive Protein 17.50 mg/dL (0.00-1.30) H 08/27/18 11:11 Triglycerides 121 mg/dL (2-149) 08/25/18 16:49 Cholesterol 105 mg/dL (50-199) 08/25/18 16:49 LDL Cholesterol Direct 58 mg/dL (50-130) 08/25/18 16:49 HDL Cholesterol 31 mg/dL (40-59) L 08/25/18 16:49 Cholesterol/HDL Ratio 3.38 % 08/25/18 16:49 Urine Color Yellow (Yellow) 08/26/18 12:55 Urine Turbidity Clear (Clear) 08/26/18 12:55 Urine pH 5.0 (5.0-7.0) 08/26/18 12:55 Ur Specific [place] 1.009 (1.003-1.030) 08/26/18 12:55 Urine Protein 30 mg/dl mg/dL (Negative) 08/26/18 12:55 Urine Glucose (UA) 50 mg/dL (Negative) 08/26/18 12:55 Urine Ketones Tr mg/dL (Negative) 08/26/18 12:55 Urine Blood Mod (Negative) 08/26/18 12:55 Urine Nitrite Neg (Negative) 08/26/18 12:55 Urine Bilirubin Neg (Negative) 08/26/18 12:55 Urine Urobilinogen < 2.0 mg/dL (<2.0) 08/26/18 12:55 Ur Leukocyte Esterase Neg (Negative) 08/26/18 12:55 Urine WBC (Auto) 4.0 /HPF (0.0-6.0) 08/26/18 12:55 Urine RBC (Auto) 7.0 /HPF (0.0-6.0) 08/26/18 12:55 U Epithel Cells (Auto) 1.0 /HPF (0-13.0) 08/26/18 12:55 Urine Mucus Few /HPF 08/26/18 12:55 Random Vancomycin 15.5 ug/mL (0-40.0) 08/27/18 04:03 Nutrition/Malnutrition Assess - Dietary Evaluation Nutrition/Malnutrition Findings: Nutrition Notes Start: 08/26/18 13:18 Freq: Status: Active Protocol: Document 09/01/18 14:05 CT (Rec: 09/01/18 14:45 CT [id number]) Co-Sign 09/01/18 14:05 RM Nutrition Notes Need for Assessment generated from: MD Order Initial or Follow up Reassessment Current Diagnosis CKD(stage I-IV) Diabetes Sepsis Hypertension Heart Failure Other Pertinent Diagnosis left foot wound, fluid overload Current Diet Renal Labs/Tests POC glucose 266 Pertinent Medications Lasix Coumadin Height 5 ft 9 in Weight 108 kg [place] Body Weight (lbs) 160.0 BMI 35.2 Subjective/Other Information RD screen for Coumadin education. Pt stated he is aware of Coumadin/vitamin K interactions and demonstrated understanding. Pt's at bedside and stated pt ate all of breakfast ONS and Brown. Percent of energy/protein needs met: 100%/100% Burn Absent Trauma Absent #1 Nutrition Diagnosis Inadequate oral intake As Evidenced by Signs and Symptoms per 's statement pt ate 100% meals, ONS, and modulator . Diagnosis Progress(for reassessment Improved documentation) Is patient on ventilator? No Is Patient Ambulatory and/or Out of Bed No REE-(Hazel Hurst-St. Jeor-confined to bed) 2207.784 Kcal/Kg value to use for calculation 16 Approximate Energy Requirements Using 1728 kcal/Kg Calculation Used for Recommendations Kcal/kg Additional Notes Protein needs are 87-109 PRO ( 0.8 -1.0 g/kg) Fluid needs are 1ml/kcal Nutrition Intervention Change Diet Order: continue Add Supplement/Snack (indicate name/kcal [place] Butter Pecan daily /protein ) Brown Provides kCal: 520 Provides Protein (gm) 22 Teaching Recipient Patient Significant Other Learning Readiness Good Teaching Methods Discussion Response to Teaching Verbalize understanding Education Handouts Provided None needed. Barriers to Learning No Barriers Patient aware of follow up options Yes Goal #1 Continue to meet at least 75% of kcal and PRO needs Anticipated Discharge Needs: Renal/Cardiac Follow-Up By: 09/08/18 Additional Comments F/U: intakes
[2018-09-02] MEDS: COUMADIN PO SCH (17:15)
[2018-09-02] MEDS: FLOMAX PO SCH (22:56)
[2018-09-02] MEDS: PRAVACHOL PO SCH (22:56)
[2018-09-03 03:21] LABS: INR 1.69 (0.87-1.13)
[2018-09-03 03:29] LABS: Hematocrit 24.2 % (35.5-45.6); Hemoglobin 7.9 gm/dl (11.8-15.2); Mean Corpuscular HGB Conc 33 % (32-34); Mean Corpuscular Volume 80 fl (84-94); Platelet Count 415 K/mm3 (140-440); Red Blood Count 3.04 M/mm3 (3.65-5.03)
[2018-09-03 03:32] LABS: Red Cell Distribution Width 21.2 % (13.2-15.2)
--- NOTE | 2018-09-03 07:25 | Discharge Summary ---
Providers - Providers Date of Admission: 08/25/18 18:39 Date of discharge: 09/03/18 Attending physician: CHAYITO PINON 08/25/18 17:51 Consult to Physician [CONS] Urgent Comment: DR THURSTON NOTIFIED 1814 Consulting Provider: TYRA THURSTON Physician Instructions: Reason For Exam: ckd 08/26/18 01:36 Consult to Wound/ET Nurse [CONS] Routine Reason For Exam: wound eval 08/26/18 07:00 Consult to Wound/ET Nurse [CONS] Routine Reason For Exam: wound eval 08/26/18 12:25 Consult to Physician [CONS] Routine Comment: Pat follow with Dr Benitez in the office Consulting Provider: TILA BENITEZ Physician Instructions: Reason For Exam: CHF 08/26/18 13:25 Consult to Physician [CONS] Routine Comment: called answ. serv. /karine Consulting Provider: ELINOR LARA Physician Instructions: Reason For Exam: sepsis, cellulitis 08/27/18 15:03 Physical Therapy Evaluation and Treat [CONS] Routine Comment: Reason For Exam: deconditioned 08/28/18 08:22 Consult to Physician [CONS] Routine Comment: H/H trending down progressively Consulting Provider: ANDREW SANDERS Physician Instructions: TRUE WAS NOTIFIED. Reason For Exam: anemia, FOBT positive 08/28/18 16:23 Consult to Physician [CONS] Routine Comment: CONSULT WAS CALLED TO /LUIS CARLOS/MICHAEL Consulting Provider: CALIXTO ARNETT Physician Instructions: PLEASE SEE PATIENT Reason For Exam: VASCULAR ASSESSMENT 08/30/18 12:52 Consult to Physician [CONS] Urgent Comment: CALLED OFFICE/KARINE Consulting Provider: FARIDA HAYES Physician Instructions: Eval and treat findings of elbow x-ray done 08/27/18 Reason For Exam: Fracture identified on x-ray of elbow 08/30/18 16:39 Consult to Dietitian/Nutrition [CONS] Stat Physician Instructions: Reason For Exam: need for nutrition with wounds Reason for Consult: Pt needs oral supplement Primary care physician: IRMA BELLE MD Hospitalization Reason for admission: sepsis, cellulitis Condition: Fair Hospital course: This patient is a 67 year old male with a past medical history of obesity, diabetes, hypertension and atrial fibrillation, who presented in the ED on 08/25/18 with complaints of global weakness, recurrent falls, malaise and fatigue. He reported decreased urination, but no bladder or bowel retention or incontinence. Upon further exam he was found to have a large open wound on the dorsal aspect of his left foot for 2 days prior to admission. On admission WBC 16.6, Creatinine 2.2, Temperature 97.5, HR 147, BP 121/62, U/A showed no evidence of UTI, Chest xray shows mild congestive failure verses less likely infectious interstitial infiltrates. No definite effusion. Foot xray shows possible nondisplaced fracture of the left 2nd toe middle phalanx. Tibia/Fibula xray show degenerative arthritis left ankle. No definite fracture or dislocation left tibia or fibula. The patient was admitted with diagnosis of se psis secondary to cellulitis of the lower extremities. The patient was seen by ID in consultation who arranged for appropriate antibiotics. The patient also saw cardiology in consultation for atrial fibrillation with supratherapeutic INR. The patient was noted to also have anemia with occult positive stool. GI saw the patient in consultation and reported that the patient had a prior endoscopic workup and declined further intervention. GI recommended resumption of Coumadin and close monitoring of CBC. Other consultation to the hospital stay included acute kidney injury on chronic kidney disease. Patient was seen by nephrology. Nephrology monitor the patient with regards to volume status and serum creatinine improved slowly. Patient initially was noted to have volume overload that responded to diuretics. Once volume overload resolved with diuretics. With regards to the lower extremity cellulitis, patient had evidence of peripheral arterial disease with ulceration. He was noted to have nonhealing ulcerations to bilateral lower extremities left greater than right. Vascular surgery recommended lower extremity arterial duplex which revealed iliofemoral disease and tibial disease. Once the renal insufficiency improved, vascular surgery performed lower extremity revascularization procedure. Patient tolerated the procedure well. Orthopedics also saw the patient for the f racture of the toe and an incidental finding on x-ray with compression plate fracture/failure but felt that there was no need for intervention and nothing acute. D/C time 36 minutes Disposition: [id number]/[id number] Time spent for discharge: 36 - Discharge Diagnoses (1) Sepsis Status: Acute (2) Cellulitis Status: Acute (3) Debility Status: Acute (4) Fluid overload Status: Acute (5) Infected wound Status: Acute (6) Multiple falls Status: Acute Core Measure Documentation - Palliative Care Palliative Care/ Comfort Measures: Not Applicable - Core Measures Any of the following diagnoses?: none Exam - Constitutional Vitals: Temp Pulse Resp BP Pulse Ox 92.2 F L 66 20 136/47 94 09/03/18 02:56 09/03/18 05:19 09/03/18 02:56 09/03/18 02:56 09/03/18 02:57 General appearance: Present: no acute distress, well-nourished - EENT Eyes: Present: PERRL ENT: hearing intact, clear oral mucosa - Neck Neck: Present: supple, normal ROM - Respiratory Respiratory effort: normal Respiratory: bilateral: CTA - Cardiovascular Heart Sounds: Present: S1 & S2. Absent: rub, click - Extremities Extremities: pulses symmetrical, No edema Peripheral Pulses: within normal limits - Abdominal General gastrointestinal: Present: soft, non-tender, non-distended, normal bowel sounds Male genitourinary: Present: normal - Integumentary Integumentary: Present: clear, warm, dry - Musculoskeletal Musculoskeletal: gait normal, strength equal bilaterally - Psychiatric Psychiatric: appropriate mood/affect, intact judgment & insight - Neurologic Neurologic: CNII-XII intact, moves all extremities Plan Activity: advance as tolerated Weight Bearing Status: Weight Bear as Tolerated Diet: diabetic Follow up with: IRMA BELLE MD [Primary Care Provider] - 3-5 Days Forms: Warfarin Discharge Instruction Prescriptions: cephALEXin [Keflex] 500 mg PO Q12HR #20 capsule
[2018-09-03] MEDS: HumaLOG SUB-Q SCH ×4 (08:18→22:52)
[2018-09-03] MEDS: HumuLIN R SUB-Q SCH ×3 (08:19→17:09)
--- NOTE | 2018-09-03 08:24 | Progress Note ---
Assessment and Plan Assessment and plan: Sepsis secondary to cellulitis of the lower extremities. - Improving. ID following. PVD Patient with nonhealing ulcerations to bilateral lower extremities left worse than the right. Lower extremity arterial duplex shows that he has some iliofemoral disease and also some tibial disease. An angiogram would be necessary to complete a revascularization. However, he has a history of a unilateral nephrectomy. Arterial duplex studies reveal multiple areas of stenosis. Patient appears to have most notably stenosis involving right femoral artery and right anterior tibial artery. Also, left anterior tibial artery as well as posterior tibial artery. A. fib - continue metoprolol - Coumadin was held for supratherapeutic INR, s/p viatmin k. - Resumed Coumadin per protocol. Right elbow fracture. Patient appears to have fracturing of medial compression plate. History of CVA - Mild residual right-sided weakness - Continue supportive care Congestive heart failure - Compensated, Patient is euvolemic - continue current medication regimen Anemia - FOBT is positive and GI consulted, No procedure needed for now DM with hyperglycemia - On novolin R NATALIA/CKD - Nephrology is following. Status post unilateral nephrectomy. He has a single kidney and has CKD Disposition - Anticipate discharge in a.m. - Patient Problems (1) Sepsis Current Visit: Yes Status: Acute (2) Cellulitis Current Visit: Yes Status: Acute (3) Debility Current Visit: Yes Status: Acute (4) Fluid overload Current Visit: Yes Status: Acute (5) Infected wound Current Visit: Yes Status: Acute (6) Multiple falls Current Visit: Yes Status: Acute History Interval history: This patient is a 67 year old male with a past medical history of obesity, diabetes, hypertension and atrial fibrillation, who presented in the ED on 08/25/18 with complaints of global weakness, recurrent falls, malaise and fatigue. He reported decreased urination, but no bladder or bowel retention or incontinence. Upon further exam he was found to have a large open wound on the dorsal aspect of his left foot for 2 days prior to admission. On admission WBC 16.6, Creatinine 2.2, Temperature 97.5, HR 147, BP 121/62, U/A showed no evidence of UTI, Chest xray shows mild congestive failure verses less likely infectious interstitial infiltrates. No definite effusion. Foot xray shows po ssible nondisplaced fracture of the left 2nd toe middle phalanx. Tibia/Fibula xray show degenerative arthritis left ankle. No definite fracture or dislocation left tibia or fibula. The patient was admitted with diagnosis of sepsis secondary to cellulitis of the lower extremities. The patient was seen by ID in consultation who arranged for appropriate antibiotics. The patient also saw car diology in consultation for atrial fibrillation with supratherapeutic INR. The patient was noted to also have anemia with occult positive stool. GI saw the patient in consultation and reported that the patient had a prior endoscopic workup and declined further intervention. GI recommended resumption of Coumadin and close monitoring of CBC. Other consultation to the hospital stay included acute kidney injury on chronic kidney disease. Patient was seen by nephrology. Nephrology monitor the patient with regards to volume status and serum creatinine improved slowly. Patient initially was noted to have volume overload that responded to diuretics. Once volume overload resolved with diuretics. With regards to the lower extremity cellulitis, patient had evidence of peripheral arterial disease with ulceration. He was noted to have nonhealing ulcerations to bilateral lower extremities left greater than right. Vascular surgery recommended lower extremity arterial duplex which revealed iliofemoral disease and tibial disease. Once the renal insufficiency improved, vascular surgery performed lower extremity revascularization procedure. Patient tolerated the procedure well. Orthopedics also saw the patient for the fracture of the toe and an incidental finding on x-ray with compression plate fracture/failure but felt that there was no need for intervention and nothing acute. Hospitalist Physical - Constitutional Vitals: Temp Pulse Resp BP Pulse Ox 92.2 F L 66 20 136/47 94 09/03/18 02:56 09/03/18 05:19 09/03/18 02:56 09/03/18 02:56 09/03/18 02:57 General appearance: Present: no acute distress, well-nourished - EENT Eyes: Present: PERRL, EOM intact ENT: hearing intact, clear oral mucosa, dentition normal - Neck Neck: Present: supple, normal ROM - Respiratory Respiratory effort: normal Respiratory: bilateral: CTA - Cardiovascular Rhythm: regular Heart Sounds: Present: S1 & S2. Absent: gallop, rub - Extremities Extremities: no ischemia, No edema, Full ROM - Abdominal General gastrointestinal: soft, non-tender, non-distended, normal bowel sounds - Integumentary Integumentary: Present: clear, warm, dry - Neurologic Neurologic: CNII-XII intact, moves all extremities Results - Labs CBC & Chem 7: 09/03/18 02:25 09/02/18 05:21 Labs: Laboratory Last Values WBC 11.4 K/mm3 (4.5-11.0) H 09/03/18 02:25 RBC 3.04 M/mm3 (3.65-5.03) L 09/03/18 02:25 Hgb 7.9 gm/dl (11.8-15.2) L 09/03/18 02:25 Hct 24.2 % (35.5-45.6) L 09/03/18 02:25 MCV 80 fl (84-94) L 09/03/18 02:25 MCH 26 pg (28-32) L 09/03/18 02:25 MCHC 33 % (32-34) 09/03/18 02:25 RDW 21.2 % (13.2-15.2) H 09/03/18 02:25 Plt Count 415 K/mm3 (140-440) 09/03/18 02:25 Lymph % (Auto) Oceanology Teacher 09/03/18 02:25 [place] % (Auto) Oceanology Teacher 09/03/18 02:25 Eos % (Auto) Oceanology Teacher 09/03/18 02:25 Baso % (Auto) Oceanology Teacher 09/03/18 02:25 Lymph # Oceanology Teacher 09/03/18 02:25 Wythe # Oceanology Teacher 09/03/18 02:25 Eos # Oceanology Teacher 09/03/18 02:25 Baso # Oceanology Teacher 09/03/18 02:25 Seg Neutrophils % Oceanology Teacher 09/03/18 02:25 Seg Neutrophils # Oceanology Teacher 09/03/18 02:25 ESR 111 mm/Hr (0-20) 08/27/18 11:11 PT 20.3 Sec. (12.2-14.9) H 09/03/18 02:25 INR 1.69 (0.87-1.13) H 09/03/18 02:25 APTT 34.9 Sec. (24.2-36.6) 08/30/18 12:13 Heparin Anti-Xa Level < 0.10 U.I./ml (0.3-0.7) L 08/31/18 13:27 Sodium 133 mmol/L (137-145) L 09/02/18 05:21 Potassium 3.4 mmol/L (3.6-5.0) L 09/02/18 05:21 Chloride 94.4 mmol/L (98-107) L 09/02/18 05:21 Carbon Dioxide 23 mmol/L (22-30) 09/02/18 05:21 Anion Gap 19 mmol/L 09/02/18 05:21 BUN 49 mg/dL (9-20) H 09/02/18 05:21 Creatinine 2.4 mg/dL (0.8-1.5) H 09/02/18 05:21 Estimated GFR 27 ml/min 09/02/18 05:21 BUN/Creatinine Ratio 20 % 09/02/18 05:21 Glucose 385 mg/dL (75-100) H 09/02/18 05:21 POC Glucose 277 (70-105) H 09/03/18 07:29 Hemoglobin A1c 8.7 % (4-6) H 08/26/18 04:58 Calcium 8.3 mg/dL (8.4-10.2) L 09/02/18 05:21 Magnesium 2.00 mg/dL (1.7-2.3) 08/30/18 09:08 Iron 18 ug/dL (49-181) L 08/29/18 05:11 TIBC 209 mcg/dL (250-450) L 08/29/18 05:11 Ferritin 264.4 ng/mL (13.0-400.0) 08/29/18 05:11 Total Creatine Kinase 116 units/L (55-170) 08/25/18 16:49 Troponin T 0.080 ng/mL (0.00-0.029) H 08/25/18 16:49 C-Reactive Protein 17.50 mg/dL (0.00-1.30) H 08/27/18 11:11 Triglycerides 121 mg/dL (2-149) 08/25/18 16:49 Cholesterol 105 mg/dL (50-199) 08/25/18 16:49 LDL Cholesterol Direct 58 mg/dL (50-130) 08/25/18 16:49 HDL Cholesterol 31 mg/dL (40-59) L 08/25/18 16:49 Cholesterol/HDL Ratio 3.38 % 08/25/18 16:49 Urine Color Yellow (Yellow) 08/26/18 12:55 Urine Turbidity Clear (Clear) 08/26/18 12:55 Urine pH 5.0 (5.0-7.0) 08/26/18 12:55 Ur Specific [place] 1.009 (1.003-1.030) 08/26/18 12:55 Urine Protein 30 mg/dl mg/dL (Negative) 08/26/18 12:55 Urine Glucose (UA) 50 mg/dL (Negative) 08/26/18 12:55 Urine Ketones Tr mg/dL (Negative) 08/26/18 12:55 Urine Blood Mod (Negative) 08/26/18 12:55 Urine Nitrite Neg (Negative) 08/26/18 12:55 Urine Bilirubin Neg (Negative) 08/26/18 12:55 Urine Urobilinogen < 2.0 mg/dL (<2.0) 08/26/18 12:55 Ur Leukocyte Esterase Neg (Negative) 08/26/18 12:55 Urine WBC (Auto) 4.0 /HPF (0.0-6.0) 08/26/18 12:55 Urine RBC (Auto) 7.0 /HPF (0.0-6.0) 08/26/18 12:55 U Epithel Cells (Auto) 1.0 /HPF (0-13.0) 08/26/18 12:55 Urine Mucus Few /HPF 08/26/18 12:55 Random Vancomycin 15.5 ug/mL (0-40.0) 08/27/18 04:03 Nutrition/Malnutrition Assess - Dietary Evaluation Nutrition/Malnutrition Findings: Nutrition Notes Start: 08/26/18 13:18 Freq: Status: Active Protocol: Document 09/01/18 14:05 CT (Rec: 09/01/18 14:45 CT [id number]) Co-Sign 09/01/18 14:05 RM Nutrition Notes Need for Assessment generated from: MD Order Initial or Follow up Reassessment Current Diagnosis CKD(stage I-IV) Diabetes Sepsis Hypertension Heart Failure Other Pertinent Diagnosis left foot wound, fluid overload Current Diet Renal Labs/Tests POC glucose 266 Pertinent Medications Lasix Coumadin Height 5 ft 9 in Weight 108 kg [place] Body Weight (lbs) 160.0 BMI 35.2 Subjective/Other Information RD screen for Coumadin education. Pt stated he is aware of Coumadin/vitamin K interactions and demonstrated understanding. Pt's at bedside and stated pt ate all of breakfast ONS and Brown. Percent of energy/protein needs met: 100%/100% Burn Absent Trauma Absent #1 Nutrition Diagnosis Inadequate oral intake As Evidenced by Signs and Symptoms per 's statement pt ate 100% meals, ONS, and modulator . Diagnosis Progress(for reassessment Improved documentation) Is patient on ventilator? No Is Patient Ambulatory and/or Out of Bed No REE-([place] Jeor-confined to bed) 2207.784 Kcal/Kg value to use for calculation 16 Approximate Energy Requirements Using 1728 kcal/Kg Calculation Used for Recommendations Kcal/kg Additional Notes Protein needs are 87-109 PRO ( 0.8 -1.0 g/kg) Fluid needs are 1ml/kcal Nutrition Intervention Change Diet Order: continue Add Supplement/Snack (indicate name/kcal Nepro Butter Pecan daily /protein ) Brown Provides kCal: 520 Provides Protein (gm) 22 Teaching Recipient Patient Significant Other Learning Readiness Good Teaching Methods Discussion Response to Teaching Verbalize understanding Education Handouts Provided None needed. Barriers to Learning No Barriers Patient aware of follow up options Yes Goal #1 Continue to meet at least 75% of kcal and PRO needs Anticipated Discharge Needs: Renal/Cardiac Follow-Up By: 09/08/18 Additional Comments F/U: intakes
[2018-09-03] MEDS: HALFPRIN EC PO SCH (09:05)
[2018-09-03] MEDS: PROTONIX PO SCH (09:05)
[2018-09-03] MEDS: ceFAZolin 2 GM in NACL 0.9% 100 ML IV SCH ×2 (09:08→21:34)
[2018-09-03] MEDS: LOPRESSOR PO SCH ×2 (09:10→21:33)
[2018-09-03] MEDS: MEGACE PO SCH (09:11)
[2018-09-03] MEDS: LANOXIN PO SCH (09:11)
[2018-09-03] MEDS: URECHOLINE PO SCH ×2 (09:12→21:34)
[2018-09-03] MEDS: ALDACTONE PO SCH (09:12)
[2018-09-03] MEDS: PROSCAR PO SCH (09:13)
--- NOTE | 2018-09-03 10:39 | Progress Note ---
Subjective Principal diagnosis: cellulitis; afib; elevated INR Interval history: Patient was seen today for follow-up on multiple renal related issues Patient has heme positive stool Noted to have GI bleed Patient denies having any chest pain pressure or shortness of breath Vitals labs intake output medications were reviewed Social history: Reviewed Allergies: Reviewed Family history: Reviewed Physical examination HEENT: Oral mucosa moist no pallor or icterus Neck: Supple no JVD Chest: Clear to auscultation anteriorly CVS: Regular rate and rhythm S1 and S2 heard Abdomen: Soft nontender no suprapubic masses no organomegaly appreciable Extremity: Dry skin less than 1+ peripheral edema Musculoskeletal: No joint effusion noted in knees and ankle Neurological: Alert awake Dermatology: No petechial rashes Psychiatry: No evidence of any agitation and aggression noted Assessment and plan Chronic kidney disease: Continue to monitor renal function periodically avoid nephrotoxic medications Hypertension hypokalemia patient started on spironolactone Anemia: Progressive decline in hemoglobin currently now around 7.9 which was 9.54 days ago, Will give iron infusion to 50 mg IV 1 Will give erythropoietin, order workup for anemia patient was made aware about heme-positive stool, GI has been consulted patient has heme positive stools Urinary retention noted to have 3 or cc of urine in the bladder bladder scan was ordered yesterday results: Reviewed with patient's nurse unremarkable Peripheral vascular disease, atrial fibrillation, CVA, congestive heart failure, Risk and benefit of anticoagulation should be discussed with patient with ongoing GI bleed Blood culture has been negative for last 4 days wound culture showed Staphylococcus aureus Renal ultrasonogram obtained on August 28, shows that patient is status post nephrectomy Hypokalemia: Added spironolactone Patient may need to see urology, if he has any retention According to nurse bladder scan was unremarkable had a long discussion with patient as well as his at the bed side I made him aware about all the above issues they do have a clear understanding of his health conditions We'll continue to follow and make recommendation from renal standpoint Objective - Vital Signs Vital signs: Vital Signs - 12hr 09/02/18 09/02/18 09/03/18 23:01 23:05 02:56 Temperature 92.2 F L Pulse Rate 76 62 Respiratory 20 Rate Blood Pressure 105/31 115/47 136/47 Blood Pressure 115/47 [Right] O2 Sat by Pulse 92 96 Oximetry 09/03/18 09/03/18 09/03/18 02:57 05:19 07:24 Temperature 97.3 F L Pulse Rate 66 66 55 L Respiratory 20 Rate Blood Pressure 138/45 Blood Pressure [Right] O2 Sat by Pulse 94 94 Oximetry 09/03/18 09/03/18 09/03/18 09:10 09:11 09:12 Temperature Pulse Rate 55 L 55 L 55 L Respiratory Rate Blood Pressure 138/45 138/45 138/45 Blood Pressure [Right] O2 Sat by Pulse Oximetry - Lab 09/03/18 02:25 09/03/18 12:10 Most recent lab results Calcium 8.3 mg/dL (8.4-10.2) L 09/02/18 05:21 Magnesium 2.00 mg/dL (1.7-2.3) 08/30/18 09:08 Medications & Allergies - Medications Allergies/Adverse Reactions: Allergies No Known Allergies Allergy (Unverified 08/25/18 16:05) Home Medications: Home Medications Medication Instructions Recorded Confirmed Last Taken Type Bethanechol 25 mg PO BID 08/25/18 08/26/18 08/24/18 12:00 History Furosemide [Lasix TAB] 40 mg PO BID 08/25/18 08/25/18 08/25/18 History Insulin Regular,Human U-500(Nf 90 - 110 units SUB-Q TID 08/25/18 08/25/18 08/25/18 History [HumuLIN R] metOLazone [Metolazone] 2.5 mg PO QDAY 08/25/18 08/25/18 08/25/18 History Aspirin EC [Aspirin Enteric Coated 81 mg PO QDAY tablet 09/03/18 Unknown Rx TAB] Bethanechol [Urecholine] 25 mg PO BID tablet 09/03/18 Unknown Rx Digoxin [Lanoxin] 0.125 mg PO DAILY tablet 09/03/18 Unknown Rx Finasteride [Proscar] 5 mg PO QDAY tablet 09/03/18 Unknown Rx Insulin Regular, Human [HumuLIN R] 40 units SUB-Q AC units 09/03/18 Unknown Rx Lispro Insulin [Humalog] 0 unit SUB-Q ACHS units 09/03/18 Unknown Rx Megestrol [Megace] 400 mg PO QDAY oral.liqd 09/03/18 Unknown Rx Metoprolol [Lopressor TAB] 75 mg PO BID tablet 09/03/18 Unknown Rx Pantoprazole [Protonix TAB] 40 mg PO DAILY tablet 09/03/18 Unknown Rx Pravastatin [Pravachol] 80 mg PO QHS tablet 09/03/18 Unknown Rx Spironolactone [Aldactone] 25 mg PO QDAY tablet 09/03/18 Unknown Rx Tamsulosin [Flomax] 0.8 mg PO HS capsule 09/03/18 Unknown Rx Warfarin [Coumadin] 4 mg PO DAILY@1700 tablet 09/03/18 Unknown Rx cephALEXin [Keflex] 500 mg PO Q12HR #20 capsule 09/03/18 Unknown Rx Active Medications: Generic Name Dose Route Start Last Admin Trade Name Freq PRN Reason Stop Dose Admin Aspirin 81 mg 09/01/18 10:00 09/03/18 09:05 Halfprin Ec PO 81 mg QDAY JOAN Administration Bethanechol Chloride 25 mg 08/26/18 10:00 09/03/18 09:12 Urecholine PO 25 mg BID JOAN Administration Digoxin 0.125 mg 08/26/18 10:00 09/03/18 09:11 Lanoxin PO Not Given DAILY JOAN Finasteride 5 mg 08/26/18 10:00 09/03/18 09:13 Proscar PO 5 mg QDAY JOAN Administration Cefazolin Sodium 2 gm/ Sodium 100 mls @ 200 mls/hr 08/29/18 22:00 09/03/18 09:08 Chloride IV 200 mls/hr Q12HR JOAN Administration Insulin Human Lispro 0 unit 08/26/18 07:30 09/03/18 08:18 Humalog SUB-Q 6 unit ACHS JOAN Administration Protocol Insulin Human Regular 40 units 08/28/18 12:30 09/03/18 08:19 Humulin R SUB-Q 40 units AC JOAN Administration Megestrol Acetate 400 mg 08/27/18 14:00 09/03/18 09:11 Megace PO Not Given QDAY JOAN Metoprolol Tartrate 75 mg 08/26/18 10:00 09/03/18 09:10 Lopressor PO Not Given BID JOAN Pantoprazole Sodium 40 mg 09/02/18 10:00 09/03/18 09:05 Protonix PO 40 mg DAILY JOAN Administration Potassium Chloride 20 meq 09/03/18 11:06 K-Dur PO 09/03/18 11:07 ONCE ONE Pravastatin Sodium 80 mg 08/26/18 22:00 09/02/18 22:56 Pravachol PO 80 mg QHS JOAN Administration Spironolactone 25 mg 09/02/18 10:00 09/03/18 09:12 Aldactone PO Not Given QDAY JOAN Tamsulosin HCl 0.8 mg 08/26/18 22:00 09/02/18 22:56 Flomax PO 0.8 mg HS JOAN Administration Warfarin Sodium 4 mg 09/01/18 17:00 09/02/18 17:15 Coumadin PO 4 mg DAILY@1700 [facility] Administration
[2018-09-03] MEDS: FERRLECIT 250 MG in NACL 0.9% 100 ML IV ONE ×2 (11:00→12:08)
[2018-09-03] MEDS ORDERED: K-DUR PO ONE (11:06)
[2018-09-03] MEDS ORDERED: PROCRIT SUB-Q ONE (12:00)
[2018-09-03 12:55] LABS: % Iron Saturation 11.35 %; Calcium 8.9 mg/dL (8.4-10.2)
[2018-09-03] MEDS: COUMADIN PO SCH (17:11)
[2018-09-03] MEDS: PRAVACHOL PO SCH (21:31)
[2018-09-03] MEDS: FLOMAX PO SCH (21:33)
[2018-09-04 03:31] LABS: Basophils # (Auto) 0.1 K/mm3 (0.0-0.1); Basophils % (Auto) 0.6 % (0.0-1.8); Eosinophils % (Auto) 10.8 % (0.0-4.3); Hematocrit 26.7 % (35.5-45.6); Hemoglobin 8.4 gm/dl (11.8-15.2); Lymphocytes # (Auto) 0.9 K/mm3 (1.2-5.4); Lymphocytes % (Auto) 9.8 % (13.4-35.0); Mean Corpuscular HGB Conc 32 % (32-34); Mean Corpuscular Volume 81 fl (84-94); Monocytes % (Auto) 10.1 % (0.0-7.3); Platelet Count 487 K/mm3 (140-440)
[2018-09-04 03:36] LABS: Red Cell Distribution Width 21.3 % (13.2-15.2)
[2018-09-04 03:44] LABS: INR 1.59 (0.87-1.13)
[2018-09-04] MEDS: HumuLIN R SUB-Q SCH ×2 (08:07→11:53)
[2018-09-04] MEDS: HumaLOG SUB-Q SCH ×2 (08:08→11:53)
--- NOTE | 2018-09-04 08:11 | Progress Note ---
Assessment and Plan Imagin08/25/2018 Chest: mild congestive failure verses less likely infectious interstitial infiltrates. No definite effusion 08/25/2018 Foot xray: Possible nondisplaced fracture of the left 2nd toe middle phalanx. Globally osteopenic bones in the foot with poor visualization of the tarsals. 08/25/2018: Tibia/Fibula x-ray: Degenerative arthritis left ankle. No definite fracture or dislocation left tibia or fibula Cultures: 08/27/2018 Left Foot: Staph aureus 08/28/2018 Blood: No growth A/P: 66-year-old male with a history of obesity, diabetes, hypertension and atrial fibrillation, admitted with: 1. Sepsis: Improved, leukocytosis improving. Etiology unclear. large open wound on dorsal aspect of left foot.. +/- diabetic foot ulceration, +/-- cellulitis, Chest xray shows no infiltrates, U/A negative for UTI. New onset fevers. Blood cultures not drawn. Currently being treated with renally dosed cefazolin -ESR- 111 -CRP 17.5 2. Left foot Cellulitis and wound infection : On exam, left foot warm, tender to touch with purulent drainage. + Diabetic neuropathy. Wound cultures positive for Staph aureus., f/u arterial doppler results 3. Fevers: Resolved 4. Type 2 Diabetes uncontrolled: tight glycemic control 5. NATALIA/CKD - Status post unilateral nephrectomy. He has a single kidney and has CKD. Continue renally dosed cefazolin 6. Great Right Toe/Right Leg wound: - On exam, Right leg wound superficial, no drainage or odor. Great right toe, large ruptured blister, wrapped. Continue wound care. Arterial Doppler studies suggest multiple areas of stenosis in right femoral and tibial artery. s/p Angiogram with revasculazation yesterday - Dr. Rojas following. Plan Upon discharge will do PO Keflex (crCl 41) 500mg q 12 total 10 days ending 09/07 f/u ID office 09/14/18 [facility] M: [phone] O:[phone] Subjective Date of service: 09/04/18 Principal diagnosis: cellulitis; afib; elevated INR Interval history: Patient seen and examined. Denied generalized, pain weakness or SOB. at be dside. Discharge antibiotic regimen discussed with and patient. Verbalized understanding. Objective - Exam Narrative Exam: Constitutional: Awake, alert. no acute distress Head, Ears, Nose: Normocephalic, atraumatic. External ears, nose normal Eyes: Conjunctivae/corneas clear. No icterus. No ptosis. Neck: Supple, no meningeal signs Oral: dentition food, no thrush . Cardiovascular: S1, S2 normal. Respiratory: Good air entry, clear to auscultation bilaterally GI: Soft, non-tender; bowel sounds normal. No peritoneal signs Musculoskeletal: Right foot edema, bilateral extremity weakness Skin: left foot wound, with purulent drainage, 3rd toe superficial wound, Right great toe ruptured blister, right leg wound superficial Hem/Lymphatic: No palpable cervical or supraclavicular nodes. No lymphangitis Psych: Mood ok. Affect normal Neurological: Awake, oriented to place, self and time - Constitutional Vitals: Vital Signs Temp Pulse Resp BP Pulse Ox 98.0 F 75 20 133/56 95 09/04/18 07:42 09/04/18 07:58 09/04/18 07:42 09/04/18 07:42 09/04/18 07:58 Temperature -Last 24 Hours Temperature 98.0 F Temperature 98.1 F Temperature 99.5 F Temperature 97.6 F - Labs CBC & Chem 7: 09/04/18 02:49 09/03/18 12:10 Labs: Abnormal lab results 09/03/18 09/03/18 09/03/18 Range/Units 11:48 12:10 16:55 RBC (3.65-5.03) M/mm3 Hgb (11.8-15.2) gm/dl Hct (35.5-45.6) % MCV (84-94) fl MCH (28-32) pg RDW (13.2-15.2) % Plt Count (140-440) K/mm3 Lymph % (Auto) (13.4-35.0) % [place] % (Auto) (0.0-7.3) % Eos % (Auto) (0.0-4.3) % Lymph # (1.2-5.4) K/mm3 [place] # (0.0-0.8) K/mm3 Eos # (0.0-0.4) K/mm3 PT (12.2-14.9) Sec. INR (0.87-1.13) Sodium 128 L (137-145) mmol/L Potassium 3.1 L (3.6-5.0) mmol/L Chloride 91.6 L (98-107) mmol/L BUN 48 H (9-20) mg/dL Creatinine 2.4 H (0.8-1.5) mg/dL Glucose 291 H (75-100) mg/dL POC Glucose 292 H 253 H (70-105) Iron 26 L (49-181) ug/dL TIBC 229 L (250-450) mcg/dL Transferrin 179 L (180-329) mg/dl 09/03/18 09/04/18 09/04/18 Range/Units 21:54 02:49 02:49 RBC 3.30 L (3.65-5.03) M/mm3 Hgb 8.4 L (11.8-15.2) gm/dl Hct 26.7 L (35.5-45.6) % MCV 81 L (84-94) fl MCH 26 L (28-32) pg RDW 21.3 H (13.2-15.2) % Plt Count 487 H (140-440) K/mm3 Lymph % (Auto) 9.8 L (13.4-35.0) % [place] % (Auto) 10.1 H (0.0-7.3) % Eos % (Auto) 10.8 H (0.0-4.3) % Lymph # 0.9 L (1.2-5.4) K/mm3 [place] # 1.0 H (0.0-0.8) K/mm3 Eos # 1.0 H (0.0-0.4) K/mm3 PT 19.4 H (12.2-14.9) Sec. INR 1.59 H (0.87-1.13) Sodium (137-145) mmol/L Potassium (3.6-5.0) mmol/L Chloride (98-107) mmol/L BUN (9-20) mg/dL Creatinine (0.8-1.5) mg/dL Glucose (75-100) mg/dL POC Glucose 252 H (70-105) Iron (49-181) ug/dL TIBC (250-450) mcg/dL Transferrin (180-329) mg/dl 09/04/18 Range/Units 07:42 RBC (3.65-5.03) M/mm3 Hgb (11.8-15.2) gm/dl Hct (35.5-45.6) % MCV (84-94) fl MCH (28-32) pg RDW (13.2-15.2) % Plt Count (140-440) K/mm3 Lymph % (Auto) (13.4-35.0) % [place] % (Auto) (0.0-7.3) % Eos % (Auto) (0.0-4.3) % Lymph # (1.2-5.4) K/mm3 [place] # (0.0-0.8) K/mm3 Eos # (0.0-0.4) K/mm3 PT (12.2-14.9) Sec. INR (0.87-1.13) Sodium (137-145) mmol/L Potassium (3.6-5.0) mmol/L Chloride (98-107) mmol/L BUN (9-20) mg/dL Creatinine (0.8-1.5) mg/dL Glucose (75-100) mg/dL POC Glucose 298 H (70-105) Iron (49-181) ug/dL TIBC (250-450) mcg/dL Transferrin (180-329) mg/dl
--- NOTE | 2018-09-04 08:44 | Progress Note ---
Subjective Principal diagnosis: cellulitis; afib; elevated INR Interval history: Patient was seen today for follow-up on multiple renal related issues patient wants to know when he can go home Patient denies having any chest pain pressure or shortness of breath Vitals labs intake output medications were reviewed Social history: Reviewed Allergies: Reviewed Family history: Reviewed Physical examination HEENT: Oral mucosa moist no pallor or icterus Neck: Supple no JVD Chest: Clear to auscultation anteriorly CVS: Regular rate and rhythm S1 and S2 heard Abdomen: Soft nontender no suprapubic masses no organomegaly appreciable Extremity: Dry skin less than 1+ peripheral edema Musculoskeletal: No joint effusion noted in knees and ankle Neurological: Alert awake Dermatology: No petechial rashes Psychiatry: No evidence of any agitation and aggression noted Assessment and plan Chronic kidney disease: Renal function currently stable Hypokalemia: Patient does need follow-up, will give him at least 80 mEq of pot assium today patient is currently on spironolactone, Diabetes mellitus type 2: Very poorly controlled Severe iron deficiency iron saturation only 11% with positive Hemoccults, to be followed by primary team Hyponatremia: Etiology unclear will order workup and follow-up, it could be due to protonix also Will place fluid restriction and monitor on serum sodium Renal function: Remained stable Renal ultrasonogram obtained on August 28, shows that patient is status post nephrectomy Hypokalemia: Added spironolactone Prevoid bladder volume was 300 mL no evidence of right-sided hydronephrosis history of peripheral arterial disease, atrial fibrillation, history of CVA, congestive heart failure currently compensated Patient was adequately counseled and educated regarding multiple renal related issues Pertinent lab findings were discussed with patient, patient does exhibit good understanding of renal issues We'll continue to follow and make recommendation from renal standpoint Objective - Vital Signs Vital signs: Vital Signs - 12hr 09/03/18 09/03/18 09/03/18 21:00 21:33 22:00 Temperature Pulse Rate 73 73 Pulse Rate [ 73 From Monitor] Respiratory 20 Rate Blood Pressure 132/60 O2 Sat by Pulse 95 Oximetry 09/04/18 09/04/18 09/04/18 03:01 05:00 07:42 Temperature 98.1 F 98.0 F Pulse Rate 60 60 Pulse Rate [ From Monitor] Respiratory 20 20 Rate Blood Pressure 126/47 133/56 O2 Sat by Pulse 95 Oximetry 09/04/18 09/04/18 07:58 08:25 Temperature Pulse Rate 75 Pulse Rate [ 75 From Monitor] Respiratory 20 Rate Blood Pressure O2 Sat by Pulse 95 95 Oximetry - Lab 09/04/18 02:49 09/03/18 12:10 Most recent lab results Calcium 8.9 mg/dL (8.4-10.2) 09/03/18 12:10 Magnesium 2.00 mg/dL (1.7-2.3) 08/30/18 09:08 Medications & Allergies - Medications Allergies/Adverse Reactions: Allergies No Known Allergies Allergy (Unverified 08/25/18 16:05) Home Medications: Home Medications Medication Instructions Recorded Confirmed Last Taken Type Bethanechol 25 mg PO BID 08/25/18 08/26/18 08/24/18 12:00 History Furosemide [Lasix TAB] 40 mg PO BID 08/25/18 08/25/18 08/25/18 History Insulin Regular,Human U-500(Nf 90 - 110 units SUB-Q TID 08/25/18 08/25/18 08/25/18 History [HumuLIN R] metOLazone [Metolazone] 2.5 mg PO QDAY 08/25/18 08/25/18 08/25/18 History Aspirin EC [Aspirin Enteric Coated 81 mg PO QDAY tablet 09/03/18 Unknown Rx TAB] Bethanechol [Urecholine] 25 mg PO BID tablet 09/03/18 Unknown Rx Digoxin [Lanoxin] 0.125 mg PO DAILY tablet 09/03/18 Unknown Rx Finasteride [Proscar] 5 mg PO QDAY tablet 09/03/18 Unknown Rx Insulin Regular, Human [HumuLIN R] 40 units SUB-Q AC units 09/03/18 Unknown Rx Lispro Insulin [Humalog] 0 unit SUB-Q ACHS units 09/03/18 Unknown Rx Megestrol [Megace] 400 mg PO QDAY oral.liqd 09/03/18 Unknown Rx Metoprolol [Lopressor TAB] 75 mg PO BID tablet 09/03/18 Unknown Rx Pantoprazole [Protonix TAB] 40 mg PO DAILY tablet 09/03/18 Unknown Rx Pravastatin [Pravachol] 80 mg PO QHS tablet 09/03/18 Unknown Rx Spironolactone [Aldactone] 25 mg PO QDAY tablet 09/03/18 Unknown Rx Tamsulosin [Flomax] 0.8 mg PO HS capsule 09/03/18 Unknown Rx Warfarin [Coumadin] 4 mg PO DAILY@1700 tablet 09/03/18 Unknown Rx cephALEXin [Keflex] 500 mg PO Q12HR #20 capsule 09/03/18 Unknown Rx Active Medications: Generic Name Dose Route Start Last Admin Trade Name Claudia PRN Reason Stop Dose Admin Aspirin 81 mg 09/01/18 10:00 09/03/18 09:05 Halfprin Ec PO 81 mg QDAY JOAN Administration Bethanechol Chloride 25 mg 08/26/18 10:00 09/03/18 21:34 Urecholine PO 25 mg BID JOAN Administration Digoxin 0.125 mg 08/26/18 10:00 09/03/18 09:11 Lanoxin PO Not Given DAILY JOAN Finasteride 5 mg 08/26/18 10:00 09/03/18 09:13 Proscar PO 5 mg QDAY JOAN Administration Cefazolin Sodium 2 gm/ Sodium 100 mls @ 200 mls/hr 08/29/18 22:00 09/03/18 21:34 Chloride IV 200 mls/hr Q12HR JOAN Administration Insulin Human Lispro 0 unit 08/26/18 07:30 09/04/18 08:08 Humalog SUB-Q 6 unit ACHS JOAN Administration Protocol Insulin Human Regular 40 units 08/28/18 12:30 09/04/18 08:07 Humulin R SUB-Q 40 units AC JOAN Administration Megestrol Acetate 400 mg 08/27/18 14:00 09/03/18 09:11 Megace PO Not Given QDAY JOAN Metoprolol Tartrate 75 mg 08/26/18 10:00 09/03/18 21:33 Lopressor PO 75 mg BID JOAN Administration Pantoprazole Sodium 40 mg 09/02/18 10:00 09/03/18 09:05 Protonix PO 40 mg DAILY JOAN Administration Pravastatin Sodium 80 mg 08/26/18 22:00 09/03/18 21:31 Pravachol PO 80 mg QHS JOAN Administration Spironolactone 25 mg 09/02/18 10:00 09/03/18 09:12 Aldactone PO Not Given QDAY JOAN Tamsulosin HCl 0.8 mg 08/26/18 22:00 09/03/18 21:33 Flomax PO 0.8 mg HS JOAN Administration Warfarin Sodium 5 mg 09/04/18 17:00 Coumadin PO DAILY@1700 JOAN
[2018-09-04] MEDS: PROSCAR PO SCH (09:24)
[2018-09-04] MEDS: HALFPRIN EC PO SCH (09:24)
[2018-09-04] MEDS: URECHOLINE PO SCH (09:24)
[2018-09-04] MEDS: ALDACTONE PO SCH (09:25)
[2018-09-04] MEDS: PROTONIX PO SCH (09:25)
[2018-09-04] MEDS: LANOXIN PO SCH (09:25)
[2018-09-04] MEDS: LOPRESSOR PO SCH (09:26)
[2018-09-04] MEDS: ceFAZolin 2 GM in NACL 0.9% 100 ML IV SCH (09:26)
[2018-09-04] MEDS: MEGACE PO SCH (09:27)
[2018-09-04 14:54] VITALS: BP 138/49
[2018-09-04] MEDS ORDERED: COUMADIN PO SCH (17:00)
== END 2018-09-04 13:30 | DRG 854 ==
LOC: ED 15:53 → 2B-ACE 18:39
PROVIDERS: ADMIT Internal Medicine; ATTEND Hospitalist
PROC: 04CN3ZZ Extirpation of Matter from Left Popliteal Artery, Percutaneous Approach (ICD-10-PCS; principal; 2018-08-31)
PROC: 047N3Z1 Dilation of Left Popliteal Artery using Drug-Coated Balloon, Percutaneous Approach (ICD-10-PCS; 2018-08-31)
PROC: B41D1ZZ Fluoroscopy of Aorta and Bilateral Lower Extremity Arteries using Low Osmolar Contrast (ICD-10-PCS; 2018-08-31)
DX: A41.9 Sepsis, unspecified organism (principal); L03.116 Cellulitis of left lower limb; N17.9 Acute kidney failure, unspecified; L03.115 Cellulitis of right lower limb; I69.351 Hemiplegia and hemiparesis following cerebral infarction affecting right dominant side; I13.0 Hypertensive heart and chronic kidney disease with heart failure and stage 1 through stage 4 chronic kidney disease, or unspecified chronic kidney disease; L97.929 Non-pressure chronic ulcer of unspecified part of left lower leg with unspecified severity; E87.1 Hypo-osmolality and hyponatremia; L97.818 Non-pressure chronic ulcer of other part of right lower leg with other specified severity; T84.89XA Other specified complication of internal orthopedic prosthetic devices, implants and grafts, initial encounter; E87.70 Fluid overload, unspecified; I50.9 Heart failure, unspecified; E66.9 Obesity, unspecified; I48.91 Unspecified atrial fibrillation; T50.2X5A Adverse effect of carbonic-anhydrase inhibitors, benzothiadiazides and other diuretics, initial encounter; D64.9 Anemia, unspecified; Y92.89 Other specified places as the place of occurrence of the external cause; E11.621 Type 2 diabetes mellitus with foot ulcer; E78.5 Hyperlipidemia, unspecified; N40.0 Benign prostatic hyperplasia without lower urinary tract symptoms; E11.40 Type 2 diabetes mellitus with diabetic neuropathy, unspecified; E11.65 Type 2 diabetes mellitus with hyperglycemia; N18.3 Chronic kidney disease, stage 3 (moderate); E11.22 Type 2 diabetes mellitus with diabetic chronic kidney disease; E87.6 Hypokalemia; M19.072 Primary osteoarthritis, left ankle and foot; E11.51 Type 2 diabetes mellitus with diabetic peripheral angiopathy without gangrene; I70.248 Atherosclerosis of native arteries of left leg with ulceration of other part of lower leg; I70.238 Atherosclerosis of native arteries of right leg with ulceration of other part of lower leg; S91.101A Unspecified open wound of right great toe without damage to nail, initial encounter; S91.102A Unspecified open wound of left great toe without damage to nail, initial encounter; Y83.8 Other surgical procedures as the cause of abnormal reaction of the patient, or of later complication, without mention of misadventure at the time of the procedure; Z68.35 Body mass index [BMI] 35.0-35.9, adult; Z85.528 Personal history of other malignant neoplasm of kidney; Z79.01 Long term (current) use of anticoagulants; Z79.4 Long term (current) use of insulin; Z91.81 History of falling; S92.402A Displaced unspecified fracture of left great toe, initial encounter for closed fracture; W18.30XA Fall on same level, unspecified, initial encounter; Y93.89 Activity, other specified; Y99.8 Other external cause status
CPT/HCPCS: 36415; 37225; 70450; 71045; 72170; 75625; 75716; 76770; 76857; 76937; 80048; 80061; 80202; 81001; 82271; 82550; 82607; 82728; 82747; 82962; 83036; 83550; 83735; 84484; 85014; 85018; 85025; 85520; 85610; 85652; 85730; 86140; 87040; 87076; 87116; 87186; 93005; 93010; 93925; 94760; 96365; 96375; G0378; A9270-GY; C1714; C1760; C1769; C1884; C1887; C2623; C9113; J0295; J0690; J0692; J0885; J1644; J1815; J1940; J2020; J2250; J2916; J3010; J3370; J3430; J3480; J7030; J7040; J7050; Q9967